=== PATIENT | female | born 1935 | race Caucasian/White ===

== ENCOUNTER → 2016-07-02 | Outpatient (CLI) | payer BC ==
[~2016-07-02] MED LIST: AMLO-110 PO; ASPEC81 PO; CALC-279; CALC-393 PO; DOCU-94 PO; LEVO50TA PO; LEVO50TA6 PO; MOME6000 NAE; MULT-188 PO; MULT-513 PO; MULTTAB58 PO; NAPR220T40 PO; NMN10 PO; PANT40TA PO; POLY335019 PO; SERT50TA PO; SIMV-151 PO
== END | disposition home or self-care (01) ==
LOC: C.LAB 08:16
PROVIDERS: ATTEND Family Medicine
DX: R41.3 Other amnesia (principal); R79.9 Abnormal finding of blood chemistry, unspecified

== ENCOUNTER → 2016-07-09 | Outpatient (CLI) | payer BC ==
[~2016-07-09] MED LIST changes: +GADAVIST IV PRN
--- NOTE | 2016-07-09 12:13 | DIAGNOSTIC IMAGING REPORT ---
MRI OF THE BRAIN COMBO CLINICAL HISTORY: Dizziness. COMPARISON STUDY: CT an MRI of the brain dated 02/05/2016. TECHNIQUE: MRI of the brain was performed utilizing various T1 and T2-weighted sequences in the axial, sagittal, and coronal planes. Contrast-enhanced sequences were acquired following the administration of 6.5 cc of Gadavist. FINDINGS: Brain parenchyma: There are age-related involutional changes noting mild subcortical and periventricular microangiopathic disease. There is no hemorrhage or mass effect. There is no restricted diffusion to suggest acute ischemia. No enhancing mass lesion is identified on the postcontrast images. [place]-white matter differentiation is preserved. No extra-axial fluid collection is seen. The cerebellar tonsils are normal in configuration. The focus of signal abnormality questioned in the left caudate head on the 02/05/2016 examination is no longer identified. Ventricles, sulci, and cisterns: Prominent secondary to involutional change. Pituitary and sella: Unremarkable. Intracranial vasculature: Normal flow voids are maintained at the skull base. Orbits: The bony orbits are grossly intact. Orbital contents are normal in appearance noting bilateral ocular lens implants. Sinuses and mastoids: There are small mastoid effusions. The paranasal sinuses are clear. Calvarium: Unremarkable. Cervical cord: Partially visualized cervical spinal cord is normal in morphology and signal intensity. IMPRESSION: 1. Mild age-related changes as above with no acute intracranial abnormality. 2. Bilateral mastoid effusions. Electronically signed by: Macario Daly M.D. 07/09/2016 12:11 PM Dictated Date/Time: 07/09/2016 12:06 PM
== END | disposition home or self-care (01) ==
LOC: C.MRIBC 11:02
PROVIDERS: ATTEND Psychiatry & Neurology Neurology
DX: R93.8 Abnormal findings on diagnostic imaging of other specified body structures (principal)

== ENCOUNTER 2016-07-19 08:42 | Emergency (ER) | payer BC ==
[~2016-07-19] VITALS: Ht 160 cm; Wt 45.3 kg
[~2016-07-19 08:42] MED LIST changes: -AMLO-110 PO; -ASPEC81 PO; -CALC-279; -DOCU-94 PO; -GADAVIST IV PRN; -LEVO50TA PO; -MOME6000 NAE; -MULT-513 PO; -NAPR220T40 PO; -NMN10 PO; -PANT40TA PO; -POLY335019 PO; -SERT50TA PO
[2016-07-19] MEDS ORDERED: LEVO50TA PO (08:53)
[2016-07-19 08:55] VITALS: TEMP 36.6; Ht 160 cm; Wt 45.3 kg
--- NOTE | 2016-07-19 09:04 | EMERGENCY ROOM VISIT NOTE ---
History First contact with patient: 08:52 Chief Complaint: VOMITING Stated Complaint: NAUSEA/VOMITING/WEAKNESS Nursing Triage Summary: woke up this morning with nausea and vomiting. denies abdominal pain. vomit is yellow greenish in color. symptoms have been for the past 45 mins History of Present Illness The patient is a 80 year old female who presents to the Emergency Room with complaints of "feeling unwell." She was in the hospital yesterday evening when her was in the ED for atrial fibrillation. She was washing the dishes this morning then felt odd, so walked down the hallway and felt her legs give out under her. She reports she sat down and did not fall. When her came , he reported that after the patient was washing dishes she reported her "head felt hot" and she wanted to get to bed, then did not respond to her for 5-10 minutes. She reports she has a history of a potential brain bleed from a TIA in January 2016. She has been following up with Neurology and had an MRI in early July , which showed the area of bleed from the prior January had resolved. Review of Systems See HPI for pertinent positives & negatives. A total of 10 systems reviewed and were otherwise negative. Past Medical/Surgical History Surgical Problems: (1) History of appendectomy (2) History of cholecystectomy (3) History of hysterectomy Family History No pertinent FHx. Social History Smoking Status: Never Smoker Current/Historical Medications Scheduled Calcium Carbonate (Calcium), 600 MG PO BID Levothyroxine Sodium (Synthroid), 1 TAB PO DAILY Multiple Vitamin (Multivitamin), 1 TAB PO DAILY Multiple Vitamins W/ Minerals (Ocuvite), 2 TAB PO DAILY Pantoprazole (Protonix), 40 MG PO DAILY Simvastatin (Simvastatin), 20 MG PO DINNER Scheduled PRN Naproxen Sodium (Aleve), 220 MG PO BID PRN for Pain Allergies Coded Allergies: Bacitracin (Verified Allergy, Unknown, RASH, 07/19/16) Hydroxyzine (Verified Allergy, Unknown, THROW UP, 07/19/16) Neomycin (Verified Allergy, Unknown, RASH, 07/19/16) Polymyxin B (Verified Allergy, Unknown, RASH, 07/19/16) Physical Exam Vital Signs Date Time Temp Pulse Resp B/P Pulse Ox O2 Delivery O2 Flow Rate FiO2 07/19/16 10:12 97 Room Air 07/19/16 10:04 61 18 114/47 96 Room Air 07/19/16 09:19 58 124/53 98 Room Air 62 126/59 70 82/50 07/19/16 08:55 36.6 63 18 145/65 95 Room Air Physical Exam GENERAL: Awake, alert, well-appearing, in no acute distress HENT: Normocephalic, atraumatic. Oropharynx unremarkable. EYES: Normal conjunctiva. Sclera non-icteric. NECK: Supple. No nuchal rigidity. FROM. No JVD. RESPIRATORY: Clear to auscultation. CARDIAC: Regular rate, normal rhythm. Extremities warm and well perfused. Pulses equal. ABDOMEN: Soft, non-distended. No tenderness to palpation. No rebound or guarding. No masses. RECTAL: Deferred. MUSCULOSKELETAL: Chest examination reveals no tenderness. The back is symmetrical on inspection without obvious abnormality. There is no CVA tenderness to palpation. No joint edema. LOWER EXTREMITIES: Calves are equal size bilaterally and non-tender. No edema. No discoloration. NEURO: Normal sensorium. No sensory or motor deficits noted. SKIN: No rash or jaundice noted. Medical Decision & Procedures Laboratory Results 07/19/16 09:25 Red Blood Count 4.11, Mean Corpuscular Volume 90.5, Mean Corpuscular Hemoglobin 30.4, Mean Corpuscular Hemoglobin Concent 33.6, Mean Platelet Volume 10.0, Neutrophils (%) (Auto) 59.8, Lymphocytes (%) (Auto) 29.3, Monocytes (%) (Auto) 6.0, Eosinophils (%) (Auto) 4.2, Basophils (%) (Auto) 0.5, Neutrophils # (Auto) 4.84, Lymphocytes # (Auto) 2.38, Monocytes # (Auto) 0.49, Eosinophils # (Auto) 0.34, Basophils # (Auto) 0.04 07/19/16 09:25 Test 07/19/16 09:25 07/19/16 09:35 07/19/16 10:10 White Blood Count 8.11 K/uL (4.8-10.8) Red Blood Count 4.11 M/uL (4.2-5.4) Hemoglobin 12.5 g/dL (12.0-16.0) Hematocrit 37.2 % (37-47) Mean Corpuscular Volume 90.5 fL (80-100) Mean Corpuscular Hemoglobin 30.4 pg (25-34) Mean Corpuscular Hemoglobin Concent 33.6 g/dl (32-36) Platelet Count 189 K/uL (130-400) Mean Platelet Volume 10.0 fL (7.4-10.4) Neutrophils (%) (Auto) 59.8 % Lymphocytes (%) (Auto) 29.3 % Monocytes (%) (Auto) 6.0 % Eosinophils (%) (Auto) 4.2 % Basophils (%) (Auto) 0.5 % Neutrophils # (Auto) 4.84 K/uL (1.4-6.5) Lymphocytes # (Auto) 2.38 K/uL (1.2-3.4) Monocytes # (Auto) 0.49 K/uL (0.11-0.59) Eosinophils # (Auto) 0.34 K/uL (0-0.5) Basophils # (Auto) 0.04 K/uL (0-0.2) RDW Standard Deviation 44.8 fL (36.4-46.3) RDW Coefficient of Variation 13.5 % (11.5-14.5) Immature Granulocyte % (Auto) 0.2 % Immature Granulocyte # (Auto) 0.02 K/uL (0.00-0.02) Anion Gap 13.0 mmol/L (3-11) Est Creatinine Clear Calc Drug Dose 44.7 ml/min Estimated GFR () 90.8 Estimated GFR (Non- 78.3 BUN/Creatinine Ratio 16.4 (10-20) Calcium Level 8.9 mg/dl (8.5-10.1) Total Bilirubin 0.9 mg/dl (0.2-1) Aspartate Amino Transf (AST/SGOT) 18 U/L (15-37) Alanine Aminotransferase (ALT/SGPT) 18 U/L (12-78) Alkaline Phosphatase 77 U/L (45-117) Total Protein 6.8 gm/dl (6.4-8.2) Albumin 3.6 gm/dl (3.4-5.0) Globulin 3.2 gm/dl (2.5-4.0) Albumin/Globulin Ratio 1.1 (0.9-2) Bedside Troponin I 0.000 ng/ml (0-0.045) Influenza Type A Antigen Neg for Influ A (NEG) Influenza Type B Antigen Neg for Influ B (NEG) Medications Administered Medications (Trade) Dose Ordered Sig/Hue Route Start Time Stop Time Status Last Admin Dose Admin Ondansetron HCl 4 mg 4 mg NOW STAT IV 07/19/16 09:34 07/19/16 09:36 DC 07/19/16 09:39 4 MG Sodium Chloride (Nss 250ml) 250 ml @ 0 mls/hr Q0M IV 07/19/16 09:45 08/18/16 09:44 07/19/16 09:39 0 MLS/HR ED Course 855: I evaluated the patient in room A12B. Her came in as well. 903: I discussed the case with Dr Ureña. I ordered a CBC, CMP, CXR, and influenza antigen. I then ordered a CT head. 930: I was informed the pt is nauseated and dehydrated. I provided her with a 250mL fluid bolus and 4mg IV zofran. She was also orthostatic at that time. 1020: I checked on the patient again, she reported feeling less unwell. She reports she is not on any blood pressure medications. 1130: The patient reported feeling well. She was ambulating to the bathroom. I gave her water and crackers to try to keep down, which she tolerated well. 12:20: The patient was discharged home in good condition. Medical Decision 80 yo F with vague symptoms including dizziness earlier this morning, with orthostatic blood pressure. It seems she was likely dehydrated from being in the hospital yesterday with her . She had labs and a CT head which were all unremarkable. She initially had orthostatic blood pressures which resolved after receiving fluids. She reported vomiting in the ambulance on the way over, but then did not have any further vomiting and tolerated PO water and crackers. She discharged home and instructed to follow up with her PCP within the next week. She agreed with the plan. Impression Primary Impression: Dehydration Additional Impression: Dizzy Departure Information Dispostion Home / Self-Care Condition GOOD Referrals Thuan Antonio D.O.Int.Med. (PCP) Patient Instructions My [facility] Resident Tracking Resident Involvement: Resident Care Provided Care Provided: Adult ED Problem Qualifiers
--- NOTE | 2016-07-19 09:26 | DIAGNOSTIC IMAGING REPORT ---
CHEST ONE VIEW PORTABLE CLINICAL HISTORY: Collapse at home. COMPARISON STUDY: Chest radiograph October 04, 2006. FINDINGS: Lung volumes are normal. Mild opacity along the left heart border likely reflects atelectasis. Lungs are otherwise clear. Cardiac size is normal. Mediastinal contours are normal. The patient is mildly rotated. There is no evidence of pulmonary edema. IMPRESSION: 1. No acute findings. 2. Mild opacity along the left heart border which likely reflects atelectasis. Electronically signed by: Etienne Chacon M.D. 07/19/2016 9:25 AM Dictated Date/Time: 07/19/2016 9:23 AM
[2016-07-19] MEDS ORDERED: ONDANSETRON INJ 2 MG/ML 2 ML VIAL IV STA (09:34)
[2016-07-19] MEDS ORDERED: SODIUM CHLORIDE 0.9% 250ML 250 ML IV SCH ×2 (09:45→10:30)
[2016-07-19 09:59] LABS: BASO % 0.5 %; BASO ABS # 0.04 K/uL (0-0.2); COMPLETE YES; EOS % 4.2 %; HEMATOCRIT 37.2 % (37-47); IG% 0.2 %; LYMPH % 29.3 %; LYMPH ABS # 2.38 K/uL (1.2-3.4); MEAN CELL VOLUME 90.5 fL (80-100); MEAN CORPUSCULAR HEMOGLOBIN 30.4 pg (25-34); MEAN CORPUSCULAR HGB CONC 33.6 g/dl (32-36); NEUT % 59.8 %; PLATELET COUNT 189 K/uL (130-400); RED BLOOD COUNT 4.11 M/uL (4.2-5.4); WHITE BLOOD COUNT 8.11 K/uL (4.8-10.8)
--- NOTE | 2016-07-19 10:01 | DIAGNOSTIC IMAGING REPORT ---
CT OF THE HEAD WITHOUT CONTRAST CLINICAL HISTORY: Collapse. COMPARISON STUDY: Head CT February 05, 2016 and MRI of the brain July 09, 2016. CT DOSE: 878.49 mGy.cm TECHNIQUE: Helical axial images of the head were obtained without IV contrast. Automated exposure control was utilized for the study. FINDINGS: No acute intracranial hemorrhage, midline shift or mass effect is present. Ventricular system is stable. Basilar cisterns are patent. There are no extra-axial collections. There are no findings to suggest acute dural sinus thrombosis or acute territorial infarct. Mild periventricular white matter hypodensity suggests small vessel disease. There is no calvarial fracture. There is trace fluid within the right mastoid air cells. This is diminished since MRI July 09, 2016. IMPRESSION: No acute intracranial findings. Electronically signed by: Etienne Chacon M.D. 07/19/2016 10:00 AM Dictated Date/Time: 07/19/2016 9:55 AM
[2016-07-19 10:12] VITALS: O2SAT 97
[2016-07-19 10:16] LABS: BUN/CREATININE RATIO 16.4 (10-20); CALCIUM 8.9 mg/dl (8.5-10.1); CREATININE 0.73 mg/dl (0.60-1.20); POTASSIUM 3.5 mmol/L (3.5-5.1)
[2016-07-19 10:18] LABS: ALB/GLOB RATIO 1.1 (0.9-2)
[2016-07-19 12:43] VITALS: BP 117/57; PULSE 70; O2SAT 96
--- NOTE | 2016-07-20 19:50 | EMERGENCY ROOM VISIT NOTE ---
ED Visit Note First contact with patient: 08:52 Resident Physician Supervision Note: I interviewed and examined the patient. Discussed with Dr. Hernandez and agree with findings and plan as documented in the note. Any exceptions or clarifications are listed here: This patient was evaluated and appeared to be in no significant distress. Patient was hydrated with normal saline solution, given IV Zofran for nausea. Patient's workup is fairly unrevealing. She was feeling much improved after the fluids and Zofran. She was able to tolerate by mouth crackers without difficulty. She was discharged with care of her family will return to the ER for worsening of symptoms or any medical concerns. Diagnosis: Vomiting, vertigo Documented By: Guillermina Ureña
[2016-12-31] MEDS ORDERED: NAPR220T40 PO (08:26)
[2016-12-31] MEDS ORDERED: PANT40TA PO (08:26)
[2016-12-31] MEDS ORDERED: MULT-188 PO (13:05)
[2017-01-01] MEDS ORDERED: ASPEC81 PO (13:39)
== END 2016-07-19 12:45 | disposition home or self-care (01) ==
LOC: EDBD 08:42 → C.EDA 08:44
DX: E86.0 Dehydration (principal); R42 Dizziness and giddiness; Z90.710 Acquired absence of both cervix and uterus

== ENCOUNTER → 2016-07-23 | Outpatient (CLI) | payer BC ==
[~2016-07-23] MED LIST changes: +AMLO-110 PO; +ASPEC81 PO; +CALC-279; +DOCU-94 PO; +LEVO50TA PO; -LEVO50TA6 PO; +MOME6000 NAE; +MULT-513 PO; +NAPR220T40 PO; +NMN10 PO; +PANT40TA PO; +POLY335019 PO; +SERT50TA PO
--- NOTE | 2016-07-23 11:34 | DIAGNOSTIC IMAGING REPORT ---
ULTRASOUND OF THE CAROTID ARTERIES CLINICAL HISTORY: Syncope. COMPARISON STUDY: No priors. TECHNIQUE: Real-time, grayscale, and color Doppler sonography of the carotid arteries is performed. Images are reviewed in the transverse and longitudinal planes. FINDINGS: Blood pressure in the right arm measures 132/52 and blood pressure in the left arm measures 120/62. The carotid arteries are patent bilaterally and demonstrate antegrade flow. There is moderate echogenic shadowing atherosclerotic plaque seen the carotid bulbs bilaterally. Normal doppler arterial waveforms are seen throughout. Velocity measurements are listed below. Common carotid peak systolic velocity (cm/sec): RIGHT: 61 LEFT: 78 ICA proximal peak systolic velocity (cm/sec): RIGHT: 74 LEFT: 54 ICA mid peak systolic velocity (cm/sec): RIGHT: 89 LEFT: 93 ICA distal peak systolic velocity (cm/sec): RIGHT: 81 LEFT: 89 ICA/CC peak systolic ratio: RIGHT: 1.5 LEFT: 1.2 Antegrade flow was shown in the vertebral arteries. The external carotid arteries are patent. IMPRESSION: 1. Atherosclerotic plaque with no sonographic evidence of hemodynamically significant stenosis in the right or left carotid arterial system. 2. Antegrade flow is shown in the vertebral arteries. Electronically signed by: Macario Daly M.D. 07/23/2016 11:33 AM Dictated Date/Time: 07/23/2016 11:31 AM
== END | disposition home or self-care (01) ==
LOC: C.ULTRBC 10:03
PROVIDERS: ATTEND Family Medicine
DX: R55 Syncope and collapse (principal)

== ENCOUNTER → 2016-07-30 | Outpatient (CLI) | payer BC ==
[~2016-07-30] MED LIST changes: +OPTIRAY 320 IV PRN
--- NOTE | 2016-07-30 10:36 | DIAGNOSTIC IMAGING REPORT ---
ABDOMEN AND PELVIS CT WITH IV AND ORAL CONTRAST CT DOSE: 400.65 mGy.cm HISTORY: WEIGHT LOSS, UNINTENTIONAL TECHNIQUE: Multiaxial CT images of the abdomen and pelvis were performed following the use of intravenous and oral contrast. COMPARISON STUDY: None. FINDINGS: The lung bases are clear. The liver, spleen, pancreas, kidneys, and adrenal glands are within normal limits. No bowel wall thickening or obstruction. No suspicious lytic or blastic osseous lesions. Cholecystectomy. Hysterectomy. Appendectomy. Bladder is now well evaluated due to underdistention. Colonic diverticulosis. No lymphadenopathy. Left retroaortic renal vein. IMPRESSION: No significant abnormality identified within the abdomen or pelvis. Colonic diverticulosis. Postoperative changes. Electronically signed by: Demario Bourne M.D. 07/30/2016 10:35 AM Dictated Date/Time: 07/30/2016 10:27 AM
== END | disposition home or self-care (01) ==
LOC: C.CTS 10:05
PROVIDERS: ATTEND Internal Medicine
DX: R63.4 Abnormal weight loss (principal); K57.30 Diverticulosis of large intestine without perforation or abscess without bleeding

== ENCOUNTER → 2016-08-27 | Outpatient (CLI) | payer BC ==
[~2016-08-27] MED LIST changes: -OPTIRAY 320 IV PRN
[2016-08-27 09:41] LABS: BASO % 0.8 %; BASO ABS # 0.05 K/uL (0-0.2); COMPLETE YES; EOS % 6.6 %; HEMATOCRIT 37.2 % (37-47); LYMPH % 34.6 %; LYMPH ABS # 2.14 K/uL (1.2-3.4); MEAN CELL VOLUME 94.2 fL (80-100); MEAN CORPUSCULAR HEMOGLOBIN 30.9 pg (25-34); MEAN CORPUSCULAR HGB CONC 32.8 g/dl (32-36); MEAN PLATELET VOLUME 10.1 fL (7.4-10.4); MONO % 7.1 %; NEUT % 50.9 %; PLATELET COUNT 289 K/uL (130-400); RED BLOOD COUNT 3.95 M/uL (4.2-5.4); WHITE BLOOD COUNT 6.19 K/uL (4.8-10.8)
[2016-08-27 10:00] LABS: ALT/SGPT 19 U/L (12-78); BLOOD UREA NITROGEN 13 mg/dl (7-18); BUN/CREATININE RATIO 17.4 (10-20); CALCIUM 8.7 mg/dl (8.5-10.1); CARBON DIOXIDE 30 mmol/L (21-32); CHLORIDE 111 mmol/L (98-107); CREATININE 0.72 mg/dl (0.60-1.20); GLUCOSE 97 mg/dl (70-99); SODIUM 145 mmol/L (136-145)
[2016-08-27 10:03] LABS: ALB/GLOB RATIO 0.9 (0.9-2); ALKALINE PHOSPHATASE 81 U/L (45-117); AST/SGOT 17 U/L (15-37)
== END | disposition home or self-care (01) ==
LOC: C.LAB 08:22
PROVIDERS: ATTEND Family Medicine
DX: R63.4 Abnormal weight loss (principal); I10 Essential (primary) hypertension

== ENCOUNTER 2016-12-31 18:43 | Observation (INO) | payer BC ==
[~2016-12-31] VITALS: Ht 157.5 cm; Wt 66.3 kg
[~2016-12-31 18:43] MED LIST changes: -AMLO-110 PO; -ASPEC81 PO; -CALC-279; -DOCU-94 PO; -MOME6000 NAE; -MULT-513 PO; -NMN10 PO; -POLY335019 PO; -SERT50TA PO
[2016-12-31 19:17] LABS: BASO % 0.5 %; BASO ABS # 0.04 K/uL (0-0.2); COMPLETE YES; EOS % 6.9 %; HEMATOCRIT 36.3 % (37-47); IG% 0.1 %; LYMPH % 42.6 %; LYMPH ABS # 3.34 K/uL (1.2-3.4); MEAN CELL VOLUME 93.8 fL (80-100); MEAN CORPUSCULAR HGB CONC 33.1 g/dl (32-36); MEAN PLATELET VOLUME 9.4 fL (7.4-10.4); MONO % 8.7 %; NEUT % 41.2 %; PLATELET COUNT 206 K/uL (130-400); RED BLOOD COUNT 3.87 M/uL (4.2-5.4); WHITE BLOOD COUNT 7.84 K/uL (4.8-10.8)
[2016-12-31] MEDS ORDERED: ASPIRIN 81 MG CHEW PO STA (19:18)
[2016-12-31 19:25] LABS: PROTHROMBIN TIME (PATIENT) 10.9 SECONDS (9.0-12.0)
[2016-12-31 19:26] LABS: BUN/CREATININE RATIO 22.9 (10-20); CALCIUM 8.8 mg/dl (8.5-10.1); CREATININE 0.74 mg/dl (0.60-1.20); POTASSIUM 3.4 mmol/L (3.5-5.1)
[2016-12-31 19:32] LABS: CKMB/CK RATIO 0.9 (0-3.0)
--- NOTE | 2016-12-31 19:33 | DIAGNOSTIC IMAGING REPORT ---
CHEST ONE VIEW PORTABLE CLINICAL HISTORY: CHEST PAIN pain COMPARISON STUDY: 07/19/2016 FINDINGS: The bones soft tissues and hemidiaphragms are normal. The cardiomediastinal silhouette is normal. The lungs are clear. The pulmonary vasculature is normal. IMPRESSION: Negative chest. The above report was generated using voice recognition software. It may contain grammatical, syntax or spelling errors. Electronically signed by: Kishor Hdez M.D. 12/31/2016 7:32 PM Dictated Date/Time: 12/31/2016 7:31 PM
[2016-12-31] MEDS ORDERED: POLY335019 PO (20:15)
[2016-12-31] MEDS ORDERED: AMLO-110 PO (20:15)
[2016-12-31] MEDS ORDERED: SERT50TA PO (20:15)
[2016-12-31] MEDS ORDERED: NMN10 PO (20:15)
[2016-12-31] MEDS ORDERED: MOME6000 NAE (20:15)
[2016-12-31] MEDS ORDERED: LEVO50TA PO (20:15)
[2016-12-31] MEDS ORDERED: DOCU-94 PO (20:15)
[2016-12-31] MEDS ORDERED: MULT-513 PO (20:15)
[2016-12-31] MEDS ORDERED: CALC-279 (20:15)
[2016-12-31] MEDS ORDERED: NITROGLYCERIN 0.4 MG SL PER TAB CHARGE SL PRN (21:00)
[2016-12-31] MEDS ORDERED: POLYETHYLENE (MIRALAX) 17 GM PACK PO PRN (21:00)
[2016-12-31] MEDS ORDERED: ACETAMINOPHEN 325 MG TAB PO PRN (21:00)
[2016-12-31] MEDS ORDERED: ONDANSETRON INJ 2 MG/ML 2 ML VIAL IV PRN (21:15)
[2016-12-31] MEDS ORDERED: POTASSIUM CHLORIDE 20 MEQ TABCR PO ONE (21:45)
[2016-12-31] MEDS ORDERED: IV FLUIDS COMPLETED PRN (22:00)
--- NOTE | 2016-12-31 22:03 | History and Physical ---
History & Physical Date & Time of Service: Dec 31, 2016 at 21:54 Chief Complaint: Pain In Chest, Neck, Left Arm Primary Care Physician: Nathalia Gillis P.A. History of Present Illness Source: patient Patient is an 81-year-old female who presents to the emergency department with complaint of the onset of dizziness, palpitations and left arm discomfort when arising from her chair shortly after supper tonight. She reports that she's had episodes of dizziness intermittently in the past, with the most recent episode being in June, but the palpitations and modified and discomfort are both new symptoms. She's had no change in the usual dietary habits are both solids and liquids, she reports that she drinks a good amount of liquids, she has minimal salt intake, and her physical activity level has been unchanged over the past weeks. Past Medical/Surgical History Hypertension Constipation Hypothyroidism Dementia Allergic rhinitis GERD Depression Hyperlipidemia Family History Noncontributory Social History Smoking Status: Never Smoker Smokeless Tobacco Use: No Alcohol Use: none Drug Use: none Marital Status: Housing status: lives with family Occupational Status: retired Immunizations History of Influenza Vaccine: Yes History of Tetanus Vaccine?: Yes History of Pneumococcal: Yes History of Hepatitis B Vaccine: Unknown Multi-Drug Resistant Organisms History of MDRO: No Allergies Coded Allergies: Bacitracin (Verified Allergy, Unknown, RASH, 07/19/16) Donepezil (Verified Allergy, Unknown, UNKNOWN, 12/31/16) Hydroxyzine (Verified Allergy, Unknown, THROW UP, 07/19/16) Neomycin (Verified Allergy, Unknown, RASH, 07/19/16) Polymyxin B (Verified Allergy, Unknown, RASH, 07/19/16) Home Medications Scheduled Amlodipine (Norvasc), 5 MG PO DAILY Calcium Citrate-Vitamin D (Calcium Citrate + D), 1 TAB BID Docusate Sodium (Colace), 1 CAP PO DAILY Levothyroxine Sodium (Synthroid), 50 MCG PO DAILY Memantine (Namenda), 10 MG PO BID Mometasone Furoate (Nasal) (Mometasone Furoate), 1-2 SPRAYS PHONG DAILY Multiple Vitamins W/ Minerals (Ocuvite), 2 TAB PO DAILY Multivitamins/Minerals (Mvi With Minerals), 1 TAB PO DAILY Pantoprazole (Protonix), 40 MG PO DAILY Sertraline (Zoloft), 25 MG PO DAILY Simvastatin (Simvastatin), 20 MG PO DINNER Scheduled PRN Naproxen Sodium (Aleve), 220 MG PO BID PRN for Pain Polyethylene Glycol 3350 (Miralax), 8.5 GM PO DAILY PRN for Constipation Review of Systems The patient denies shortness of breath, cough, lower extremity swelling, vision change, hearing change, sore throat, fevers, chills, sweats, weight change, fatigue, nausea, vomiting, abdominal pain, pelvic pain, blood in urine or stool , dysuria, urinary frequency or urgency, headache, memory loss, rash, abnormal bruising or bleeding, imbalance, focal or generalized weakness, numbness or tingling in arms or legs, arthralgias or myalgias, back or neck pain, night sweats. The review of systems is otherwise negative other than for that already noted above, and at least 10 systems have been reviewed. Physical Exam Vital Signs Date Time Temp Pulse Resp B/P (MAP) Pulse Ox O2 Delivery O2 Flow Rate FiO2 12/31/16 21:37 74 18 134/63 94 Room Air 12/31/16 20:35 79 18 155/65 95 Room Air 12/31/16 19:35 95 Room Air 12/31/16 18:58 70 12/31/16 18:56 96 Room Air 12/31/16 18:46 36.6 75 16 167/73 95 Room Air The patient is awake, well-developed and adequately nourished, alert and oriented 3, normocephalic and atraumatic, lying in bed and in no acute distress. HEENT--PERRL, EOMI, mucous membranes and oropharynx dry. Neck--supple, no JVD or bruits, thyroid normal, trachea midline, no adenopathy. Heart--normal S1 and S2, no extra beats, no murmurs, rubs or gallops. Lungs--clear bilaterally with good air movement, no respiratory distress, no accessory muscle use. Abdomen--normal bowel sounds and soft, nontender and nondistended, no hernias or masses, no organomegaly. Extremities--no cyanosis, clubbing or edema. There are good distal pulses b/l. Dermatologic--normal skin turgor, normal color, warm and dry, no abnormal lymph nodes, no rash. Neurologic--cranial nerves II through XII grossly intact, motor and sensory examination normal. Rheumatologic--normal range of motion, nontender, muscles and joints. Psychiatric--normal affect. Diagnostics Laboratory Results Results Past 24 Hours Test 12/31/16 19:06 Range/Units White Blood Count 7.84 4.8-10.8 K/uL Red Blood Count 3.87 4.2-5.4 M/uL Hemoglobin 12.0 12.0-16.0 g/dL Hematocrit 36.3 37-47 % Mean Corpuscular Volume 93.8 80-100 fL Mean Corpuscular Hemoglobin 31.0 25-34 pg Mean Corpuscular Hemoglobin Concent 33.1 32-36 g/dl Platelet Count 206 130-400 K/uL Mean Platelet Volume 9.4 7.4-10.4 fL Neutrophils (%) (Auto) 41.2 % Lymphocytes (%) (Auto) 42.6 % Monocytes (%) (Auto) 8.7 % Eosinophils (%) (Auto) 6.9 % Basophils (%) (Auto) 0.5 % Neutrophils # (Auto) 3.23 1.4-6.5 K/uL Lymphocytes # (Auto) 3.34 1.2-3.4 K/uL Monocytes # (Auto) 0.68 0.11-0.59 K/uL Eosinophils # (Auto) 0.54 0-0.5 K/uL Basophils # (Auto) 0.04 0-0.2 K/uL RDW Standard Deviation 46.5 36.4-46.3 fL RDW Coefficient of Variation 13.5 11.5-14.5 % Immature Granulocyte % (Auto) 0.1 % Immature Granulocyte # (Auto) 0.01 0.00-0.02 K/uL Prothrombin Time 10.9 9.0-12.0 SECONDS Prothromb Time International Ratio 1.0 0.9-1.1 Activated Partial Thromboplast Time 26.4 21.0-31.0 SECONDS Partial Thromboplastin Ratio 1.0 Sodium Level 146 136-145 mmol/L Potassium Level 3.4 3.5-5.1 mmol/L Chloride Level 112 98-107 mmol/L Carbon Dioxide Level 28 21-32 mmol/L Anion Gap 6.0 3-11 mmol/L Blood Urea Nitrogen 17 7-18 mg/dl Creatinine 0.74 0.60-1.20 mg/dl Est Creatinine Clear Calc Drug Dose 54.7 ml/min Estimated GFR () 88.7 Estimated GFR (Non- 76.5 BUN/Creatinine Ratio 22.9 10-20 Random Glucose 106 70-99 mg/dl Calcium Level 8.8 8.5-10.1 mg/dl Total Bilirubin 0.7 0.2-1 mg/dl Direct Bilirubin 0.2 0-0.2 mg/dl Aspartate Amino Transf (AST/SGOT) 16 15-37 U/L Alanine Aminotransferase (ALT/SGPT) 20 12-78 U/L Alkaline Phosphatase 90 45-117 U/L Total Creatine Kinase 67 26-192 U/L Creatine Kinase MB 0.6 0.5-3.6 ng/ml Creatine Kinase MB Ratio 0.9 0-3.0 Troponin I 0.022 0-0.045 ng/ml Total Protein 7.0 6.4-8.2 gm/dl Albumin 3.8 3.4-5.0 gm/dl Lipase 498 73-393 U/L Diagnostic Radiology Patient Name: EDWAR MONTES Unit Number: [id number] Dictated: 12/31/161930 Transcribed: 12/31/161930 MS Printed Date/Time: [~ rep prt dt]/[~ rep prt tm] [~ rep ct labl] - [~ rep ct ivnm] [facility] [place] [address] Dictated: 12/31/161930 Transcribed: 12/31/161930 MS Printed Date/Time: [~ rep prt dt]/[~ rep prt tm] [~ rep ct labl] - [~ rep ct ivnm] [~ rep ct add3]] CHEST ONE VIEW PORTABLE CLINICAL HISTORY: CHEST PAIN pain COMPARISON STUDY: 07/19/2016 FINDINGS: The bones soft tissues and hemidiaphragms are normal. The cardiomediastinal silhouette is normal. The lungs are clear. The pulmonary vasculature is normal. IMPRESSION: Negative chest. The above report was generated using voice recognition software. It may contain grammatical, syntax or spelling errors. Electronically signed by: Kishor Hdez M.D. 12/31/2016 7:32 PM Dictated Date/Time: 12/31/2016 7:31 PM The status of this report is Signed. Draft = Not yet reviewed or approved by Radiologist. Signed = Reviewed and approved by Radiologist. <AttendingPhy></AttendingPhy> <FamilyPhy>Nathalia Gillis P.A.</FamilyPhy> < PrimaryPhy>Nathalia Gillis P.A.</PrimaryPhy> <UnitNumber>[id number]</UnitNumber > <VisitNumber>[id number]</VisitNumber> <PatientName>EDWAR MONTES Mamadou</ PatientName> <DateOfBirth>1935</DateOfBirth> <Location>[facility]</Location> < ServiceDate>12/31/16</ServiceDate> <MNE>ESINDI</MNE> <OrderingPhy>Waldemar Joyce D.O.</OrderingPhy> <OrderingPhyMNE>f rep ord dr keith</OrderingPhyMNE> <DictatingPhyMNE>f rep dict dr keith</DictatingPhyMNE> <CCListMNE>f rep ct mne</ CCListMNE> <AdmittingPhyMNE>f pt admit dr keith</AdmittingPhyMNE> <AttendingPhyMNE >f pt attend dr keith</AttendingPhyMNE> <ConsultingPhyMNE>f pt consult dr keith</ConsultingPhyMNE> <FamilyPhyMNE>f pt fam dr keith</FamilyPhyMNE> <OtherPhyMNE>f pt other dr keith</OtherPhyMNE> < PrimaryPhyMNE>f pt prim care dr keith</PrimaryPhyMNE> <ReferringPhyMNE>f pt referring dr keith</ReferringPhyMNE> EKG EKG shows normal sinus rhythm at 71 beats minute, incomplete right bundle branch block, no acute ST-T changes. Impression Assessment and Plan Precordial chest pain/palpitations/left arm discomfort/hypertension--The patient will be admitted to telemetry for serial cardiac enzymes, cardiac rhythm monitoring and a 2-D echocardiogram with Dopplers. If the above workup is negative, the patient should be considered for stress echocardiogram prior to discharge. We'll continue amlodipine 5 mg by mouth daily and add aspirin 81 mg by mouth every morning. Hypothyroidism--continue levothyroxine sodium 50 g by mouth daily. GERD--continue pantoprazole 40 mg by mouth daily. Hyperlipidemia--continue simvastatin 20 mg by mouth daily. Check a fasting lipid profile in the a.m. Depression/dementia--continue sertraline 25 mg by mouth daily and Namenda 10 mg by mouth twice a day. Constipation--continue docusate 100 mg by mouth daily and MiraLAX 17 g by mouth daily when necessary. Allergic rhinitis--continue nasal spray a change to Flonase 1 spray to nostril daily. Level of Care Telemetry Advanced Directives Existing Advance Directive: No Existing Living Will: No Existing Power of Director Of Student Life: No Resuscitation Status FULL RESUSCITATION VTE Prophylaxis VTE Risk Assessment Done? Y/N: Yes Risk Level: Moderate Given or contraindicated: SCD's Social Service Consult None Apply
[2016-12-31 22:06] VITALS: BP 178/69; PULSE 60; TEMP 37; O2SAT 96; Ht 157.5 cm; Wt 66.3 kg
--- NOTE | 2016-12-31 22:21 | EMERGENCY ROOM VISIT NOTE ---
History Report prepared by Savi: Karen Navas Under the Supervision of: Dr. Waldemar Joyce D.O. First contact with patient: 18:49 Chief Complaint: CARDIAC ASSESSMENT Stated Complaint: PAIN IN CHEST, NECK, LEFT ARM Nursing Triage Summary: pt to the ED with c/o chest pain today that went away, no sob no dizziness no complaints of pain now History of Present Illness The patient is an 81 year old female who presents to the Emergency Room with complaints of an episode of chest pain around 1744 today. She was sitting in a chair when the pain started. It was in the left side of her chest and radiating into her left arm and neck. The episode lasted for about 30 minutes. She is currently not having any pain. The pain was not worsened by anything. She tried taking Tylenol and Pepto Bismol. She had some abdominal pain which felt like indigestion. She denies any nausea, vomiting, pain in the legs, or swelling in the legs. She has not started any new medications recently. She has a history of TIA. She denies any history of [place]. She has not had a stress test or heart catheterization before. She has had a cholecystectomy and appendectomy. Source of History: patient, spouse/significant other Onset: 1744 today Position: chest (left) Quality: other (pain) Timing: other (episodic) Associated Symptoms: + neck pain, + abdominal pain, No nausea, No vomiting Note: Pt reports left arm pain. Pt denies leg pain/swelling. Review of Systems See HPI for pertinent positives & negatives. A total of 10 systems reviewed and were otherwise negative. Past Medical & Surgical Medical Problems: (1) Heart palpitations (2) Precordial chest pain Surgical Problems: (1) History of appendectomy (2) History of cholecystectomy (3) History of hysterectomy Family History No pertinent family history stated. Social History Smoking Status: Never Smoker Marital Status: Occupation Status: retired Current/Historical Medications Scheduled Amlodipine (Norvasc), 5 MG PO DAILY Aspirin (Aspirin EC Low Dose), 1 TAB PO DAILY Calcium Citrate-Vitamin D (Calcium Citrate + D), 1 TAB BID Docusate Sodium (Colace), 1 CAP PO DAILY Levothyroxine Sodium (Synthroid), 50 MCG PO DAILY Memantine (Namenda), 10 MG PO BID Mometasone Furoate (Nasal) (Mometasone Furoate), 1-2 SPRAYS PHONG DAILY Multiple Vitamins W/ Minerals (Ocuvite), 2 TAB PO DAILY Multivitamins/Minerals (Mvi With Minerals), 1 TAB PO DAILY Pantoprazole (Protonix), 40 MG PO DAILY Sertraline (Zoloft), 25 MG PO DAILY Simvastatin (Simvastatin), 20 MG PO DINNER Scheduled PRN Naproxen Sodium (Aleve), 220 MG PO BID PRN for Pain Polyethylene Glycol 3350 (Miralax), 8.5 GM PO DAILY PRN for Constipation Allergies Coded Allergies: Bacitracin (Verified Allergy, Unknown, RASH, 07/19/16) Donepezil (Verified Allergy, Unknown, UNKNOWN, 12/31/16) Hydroxyzine (Verified Allergy, Unknown, THROW UP, 07/19/16) Neomycin (Verified Allergy, Unknown, RASH, 07/19/16) Polymyxin B (Verified Allergy, Unknown, RASH, 07/19/16) Physical Exam Vital Signs Date Time Temp Pulse Resp B/P (MAP) Pulse Ox O2 Delivery O2 Flow Rate FiO2 12/31/16 20:35 79 18 155/65 95 Room Air 12/31/16 19:35 95 Room Air 12/31/16 18:58 70 12/31/16 18:56 96 Room Air 12/31/16 18:46 36.6 75 16 167/73 95 Room Air Physical Exam GENERAL: Patient is awake, alert, and in no acute distress. Patient is resting comfortably and showing no signs of anxiety EYES: The conjunctivae are clear. The pupils are round and reactive. EARS, NOSE, MOUTH AND THROAT: The nose is without any evidence of any deformity. Mucous membranes are moist tongue is midline NECK: The neck is nontender and supple. RESPIRATORY: Normal respiratory effort is noted there is no evidence of wheezing rhonchi or rales CARDIOVASCULAR: Regular rate and rhythm noted there no murmurs rubs or gallops normal S1 normal S2 GASTROINTESTINAL: The abdomen is soft. Bowel sounds are present in all quadrants. Abdomen is nontender MUSCULOSKELETAL/EXTREMITIES: There is no evidence of gross deformity full range of motion is noted in the hips and shoulders SKIN: There is no obvious evidence of any rash. There are no petechiae, pallor or cyanosis noted. NEUROLOGIC: Patient is awake alert and oriented x3 Medical Decision & Procedures ER Provider Diagnostic Interpretation: X-ray results as stated below per interpretation by me and the radiologist. CHEST ONE VIEW PORTABLE CLINICAL HISTORY: CHEST PAIN pain COMPARISON STUDY: 07/19/2016 FINDINGS: The bones soft tissues and hemidiaphragms are normal. The cardiomediastinal silhouette is normal. The lungs are clear. The pulmonary vasculature is normal. IMPRESSION: Negative chest. The above report was generated using voice recognition software. It may contain grammatical, syntax or spelling errors. Electronically signed by: Kishor Hdez M.D. 12/31/2016 7:32 PM Dictated Date/Time: 12/31/2016 7:31 PM Laboratory Results Test 12/31/16 19:06 Prothrombin Time 10.9 SECONDS (9.0-12.0) Prothromb Time International Ratio 1.0 (0.9-1.1) Activated Partial Thromboplast Time 26.4 SECONDS (21.0-31.0) Partial Thromboplastin Ratio 1.0 Total Bilirubin 0.7 mg/dl (0.2-1) Direct Bilirubin 0.2 mg/dl (0-0.2) Aspartate Amino Transf (AST/SGOT) 16 U/L (15-37) Alanine Aminotransferase (ALT/SGPT) 20 U/L (12-78) Alkaline Phosphatase 90 U/L (45-117) Total Protein 7.0 gm/dl (6.4-8.2) Albumin 3.8 gm/dl (3.4-5.0) Lipase 498 U/L (73-393) Laboratory results per my review. Medications Administered Medications (Trade) Dose Ordered Sig/Hue Route Start Time Stop Time Status Last Admin Dose Admin Aspirin (Aspirin Chew) 324 mg NOW STAT PO 12/31/16 19:18 12/31/16 19:19 DC 12/31/16 19:29 324 MG Memantine (Namenda Tab) 10 mg BID PO 12/31/16 21:00 01/30/17 20:59 01/01/17 09:20 10 MG Calcium/Vitamin D (Caltrate Plus Tab) 1 tab BID PO 12/31/16 21:00 01/30/17 20:59 01/01/17 09:19 1 TAB ECG Indication: chest pain Rate (beats per minute): 71 Rhythm: normal sinus Findings: ST depression (Lateral, Inferior), no ectopy Comparison ECG Date: 19-Jul-2016 Change: ST segment abnormalities are new. ED Course 1912: The patient was evaluated in room C2B. A complete history and physical examination were performed. 1917: Aspirin 324 mg PO. 1945: Upon reevaluation, the patient is resting comfortably. I discussed results and treatment plan with her and her . They verbalize agreement and understanding. The patient will be evaluated for further management and care. 1953: I discussed the patient's case with JAKY Ernst hospitalist. The patient will be evaluated for further management. Medical Decision Prior records/ancillary studies reviewed. Triage Nursing notes reviewed. Additional history obtained from family. The patient's history was concerning for chest pain. Differential diagnosis: Etiologies such as cardiac ischemia, aortic dissection, pulmonary embolism, pneumonia, pneumothorax, musculoskeletal, infections, pericarditis, myocarditis , esophageal rupture, gastrointestinal, as well as others were entertained. The patient is an 81-year-old female who presented to the emergency department for an evaluation of chest discomfort. The patient was pain-free upon arrival to the emergency department. She was treated with aspirin. She was found have ST segment abnormalities on EKG which could be consistent with ischemia. I discussed the patient's laboratory and radiographic studies with her. I also discussed the limitations of the emergency department workup for chest pain with them. Because the patient's abnormal EKG I discussed her case with the on- call [facility] hospitalist group. They have agreed to evaluate the patient in the emergency department for further management and disposition. Medication Reconcilliation Current Medication List: was personally reviewed by me Blood Pressure Screening Patient's blood pressure: Elevated blood pressure Blood pressure disposition: Elevated BP felt to be situational Will be monitored while in the hospital. Consults Time Called: 1946 Consulting Physician: JAKY Ernst hospitalist Returned Call: 1953 I discussed the patient's case with him. The patient will be evaluated for further management. Impression Primary Impression: Left sided chest pain Additional Impression: Abnormal EKG Scribe Attestation The scribe's documentation has been prepared under my direction and personally reviewed by me in its entirety. I confirm that the note above accurately reflects all work, treatment, procedures, and medical decision making performed by me. Departure Information Dispostion Being Evaluated By Hospitalist Prescriptions Aspirin (Aspirin EC Low Dose) 81 Mg Ectab 1 TAB PO DAILY for 30 Days, #30 TAB 3 Refills Prov: Hayden Klein D.O. 01/01/17 Referrals Nathalia Gillis P.A. (PCP) Patient Instructions My [facility] Problem Qualifiers
[2016-12-31] MEDS: SODIUM CHLOR 0.45% + 20MEQ KCL 1,000 ML IV SCH (22:33)
[2016-12-31] MEDS: MEMANTINE 10 MG TAB PO SCH (22:34)
[2016-12-31] MEDS: CALCIUM 600MG + VIT D 400 IU TAB PO SCH (22:35)
[2016-12-31 23:53] VITALS: BP 127/70; PULSE 68; TEMP 36.9; O2SAT 96
[2017-01-01 04:12] VITALS: BP 132/76; PULSE 67; TEMP 36.8; O2SAT 96
[2017-01-01 05:25] LABS: BASO % 0.5 %; BASO ABS # 0.04 K/uL (0-0.2); COMPLETE YES; EOS % 8.1 %; HEMATOCRIT 35.7 % (37-47); IG% 0.1 %; LYMPH % 42.6 %; LYMPH ABS # 3.61 K/uL (1.2-3.4); MEAN CELL VOLUME 94.9 fL (80-100); MEAN CORPUSCULAR HEMOGLOBIN 30.6 pg (25-34); MEAN CORPUSCULAR HGB CONC 32.2 g/dl (32-36); MEAN PLATELET VOLUME 9.7 fL (7.4-10.4); MONO % 8.8 %; NEUT % 39.9 %; PLATELET COUNT 210 K/uL (130-400); RED BLOOD COUNT 3.76 M/uL (4.2-5.4); WHITE BLOOD COUNT 8.48 K/uL (4.8-10.8)
[2017-01-01 05:55] LABS: BUN/CREATININE RATIO 20.4 (10-20); CALCIUM 8.7 mg/dl (8.5-10.1); CREATININE 0.58 mg/dl (0.60-1.20); MAGNESIUM 2.4 mg/dl (1.8-2.4); POTASSIUM 4.9 mmol/L (3.5-5.1)
[2017-01-01] MEDS ORDERED: LEVOTHYROXINE 50 MCG TAB PO SCH (06:00)
[2017-01-01 06:10] LABS: CKMB/CK RATIO 1.5 (0-3.0)
[2017-01-01 07:28] VITALS: BP 129/71; PULSE 66; TEMP 36.9; O2SAT 97
[2017-01-01] MEDS ORDERED: AMLODIPINE BESYLATE 5 MG TAB PO SCH (09:00)
[2017-01-01] MEDS ORDERED: PANTOprazole SOD 40 MG TAB PO SCH (09:00)
[2017-01-01] MEDS ORDERED: CEROVITE ADV FORMULA TAB PO SCH ×2 (09:00)
[2017-01-01] MEDS ORDERED: FLUTICASONE PROPIONATE NA SPR 16 GM BTL SCH (09:00)
[2017-01-01] MEDS ORDERED: SERTRALINE HCL 50 MG TAB PO SCH (09:00)
[2017-01-01] MEDS ORDERED: DOCUSATE SODIUM 100 MG CAP PO SCH (09:00)
[2017-01-01] MEDS: CALCIUM 600MG + VIT D 400 IU TAB PO SCH (09:19)
[2017-01-01] MEDS: MEMANTINE 10 MG TAB PO SCH (09:20)
[2017-01-01 11:06] VITALS: BP 110/66; PULSE 64; TEMP 36.8; O2SAT 96
[2017-01-01] MEDS: SODIUM CHLOR 0.45% + 20MEQ KCL 1,000 ML IV SCH (11:20)
[2017-01-01] MEDS ORDERED: ASPEC81 PO (13:39)
--- NOTE | 2017-01-01 13:42 | Discharge Instructions ---
Discharge Instructions Date of Service Jan 01, 2017. Admission Reason for Admission: Heart Palpitations; Precordial Chest Pain Discharge Discharge Diagnosis / Problem: Heart palpitations, chest pain, left arm pain Discharge Goals Goal(s): Decrease discomfort, Improve function, Diagnostic testing (consider outpatient stress test) Activity Recommendations Activity Limitations: resume your previous activity Lifting Limitations: none Exercise/Sports Limitations: as tolerated May Resume Sexual Activity: when tolerated Shower/Bathe: no limitations Driving or Machine Use: no limitations . Instructions / Follow-Up Instructions / Follow-Up Medications: - ASPIRIN: recommend that you take a baby aspirin every day to protect heart if not already taking Palpitations, chest pain: no evidence of heart attack with negative cardiac enzymes and no changes on EKG to suggest a heart attack or ischemia recommend that you discuss with your primary care doctor and arrange for outpatient stress test with biofuels production associate FOLLOW UP - Nathalia Gillis PA-C this week to arrange for stress test Current Hospital Diet Patient's current hospital diet: AHA Diet (Heart Healthy) Discharge Diet Recommended Diet: AHA Diet (Heart Healthy) Pending Studies Studies pending at discharge: no Medical Emergencies . Who to Call and When: Medical Emergencies: If at any time you feel your situation is an emergency, please call 911 immediately. . Non-Emergent Contact Non-Emergency issues call your: Primary Care Provider Call Non-Emergent contact if: you have any medication questions . . "Provider Documentation" section prepared by Hayden Klein. . VTE Core Measure Inpt VTE Proph given/why not?: SCD's [place] Drug Monitoring Program Search Results: no issues identified
[2017-01-01 13:49] LABS: CKMB/CK RATIO 0.9 (0-3.0)
[2017-01-01 15:36] VITALS: BP 110/66; PULSE 64; TEMP 36.8; O2SAT 96
[2017-01-01] MEDS ORDERED: SIMVASTATIN 20 MG TAB PO SCH (21:00)
--- NOTE | 2017-01-02 08:16 | Discharge Summary ---
Discharge Summary Date of Service Jan 01, 2017. Discharge Summary Admission Date: Dec 31, 2016 at 21:12 Discharge Date: Jan 01, 2017 Discharge Disposition: Home Principal Diagnosis: Palpitations, left arm pain Problems/Secondary Diagnoses: Hypothyroid GERD Dyslipidemia Immunizations: Have You Had Influenza Vaccine: Yes History of Tetanus Vaccine?: Yes History of Pneumococcal: Yes History of Hepatitis B Vaccine: Unknown Procedures: none Consultations: none Medication Reconciliation New Medications: Aspirin (Aspirin EC Low Dose) 81 Mg Ectab 1 TAB PO DAILY for 30 Days, #30 TAB 3 Refills Continued Medications: Amlodipine (Norvasc) 5 Mg Tab 5 MG PO DAILY, TAB Calcium Citrate-Vitamin D (Calcium Citrate + D) 1 Tab Tab 1 TAB BID Docusate Sodium (Colace) 100 Mg Cap 1 CAP PO DAILY for 30 Days, #30 CAP Levothyroxine Sodium (Synthroid) 50 Mcg Tab 50 MCG PO DAILY, TAB Memantine (Namenda) 10 Mg Tab 10 MG PO BID, TAB Mometasone Furoate (Nasal) (Mometasone Furoate) 50 Mcg/Act Spr 1-2 SPRAYS PHONG DAILY Multiple Vitamins W/ Minerals (Ocuvite) 1 Tab Tab 2 TAB PO DAILY Multivitamins/Minerals (Mvi With Minerals) Tab 1 TAB PO DAILY, TAB Naproxen Sodium (Aleve) 220 Mg Tab 220 MG PO BID PRN for Pain, TAB Pantoprazole (Protonix) 40 Mg Tab 40 MG PO DAILY, #30 TAB Polyethylene Glycol 3350 (Miralax) 1 Pow Pow 8.5 GM PO DAILY PRN for Constipation, #527 GM Sertraline (Zoloft) 50 Mg Tab 25 MG PO DAILY, TAB Simvastatin (Simvastatin) 20 Mg Tab 20 MG PO DINNER Discharge Exam Patient felt fine during hospitalization, no chest pressure or pain, no left arm pain, no palpitations. Reviewed tele, no arrhythmias. troponin negative x 3 discussed findings with patient and her . she felt well, no symptoms, ambulated independently around the RN station several times recommended following up for exercise stress test, she agreed to this. Review of Systems: Constitutional: No fever, No chills, No sweats, No weight loss, No weakness , No fatigue, No problem reported Eyes: No worsening of vision, No eye pain, No redness, No discharge, No diplopia, No problem reported ENT: No hearing loss, No unusual epistaxis, No nasal symptoms, No sore throat, No tinnitus, No dental problems, No trouble swallowing, No problem reported Respiratory: No cough, No sputum, No wheezing, No shortness of breath, No dyspnea on exertion, No dyspnea at rest, No hemoptysis, No problem reported Cardiovascular: No chest pain, No orthopnea, No PND, No edema, No claudication, No palpitations, No problem reported Abdomen: No pain, No nausea, No vomiting, No diarrhea, No constipation, No GI bleeding, No problem reported Musculoskeletal: No joint pain, No muscle pain, No swelling, No calf pain, No problem reported Genitourinary - Female: No dysuria, No urinary frequency, No urinary urgency , No urinary incontinence, No urinary retention, No hematuria Neurologic: + memory loss (mild), No paralysis, No weakness, No numbness/ tingling, No vertigo, No balance problems, No problem reported Psychiatric: No depression symptoms, No anhedonism, No anxiety, No insomnia , No substance abuse, No problem reported Endocrine: No fatigue, No excessive thirst, No excessive urination, No problem reported Hematologic / Lymphatic: No abnormal bleeding/bruising, No clotting problems , No swollen lymph nodes, No night sweats, No problem reported Integumentary: No rash, No itch, No new/changing skin lesions, No color change, No bleeding, No problem reported Physical Exam: General Appearance: WD/WN, no apparent distress Eyes: normal inspection, EOMI, sclerae normal ENT: normal ENT inspection, hearing grossly normal, pharynx normal Neck: supple, no adenopathy, no JVD, trachea midline Respiratory/Chest: chest non-tender, lungs clear, normal breath sounds, no respiratory distress, no accessory muscle use Cardiovascular: regular rate, rhythm, no edema, no gallop, no JVD, no murmur , normal peripheral pulses Abdomen / GI: normal bowel sounds, non tender, soft, no organomegaly Extremities: normal inspection, no calf tenderness, normal capillary refill , no pedal edema, normal range of motion, pelvis stable Neurologic/Psychiatric: legal coordinator II-XII nml as tested, no motor/sensory deficits , alert, normal mood/affect, normal reflexes, oriented x 3, + pertinent finding (mild memory loss) Skin: normal color, warm/dry, no rash Lymphatic: no adenopathy Hospital Course 81 yo female with reported palpitations, left chest pain, left arm pain. No symptoms while admitted - Precordial chest pain/palpitations/left arm discomfort/hypertension troponin negative x 3 sets, no arrhythmias on monitor ambulated several laps around the RN station without symptoms discussed follow up exercise stress echo as outpatient, will follow up with PCP to arrange recommended starting aspirin 81mg daily for cardiac protection if not already taking HTN: BP stable on home regimen Hypothyroidism--continue levothyroxine sodium 50 g by mouth daily. GERD--continue pantoprazole 40 mg by mouth daily. Hyperlipidemia--continue simvastatin 20 mg by mouth daily. Check a fasting lipid profile in the a.m. Depression/dementia--continue sertraline 25 mg by mouth daily and Namenda 10 mg by mouth twice a day. Constipation--continue docusate 100 mg by mouth daily and MiraLAX 17 g by mouth daily when necessary. Allergic rhinitis--continue nasal spray a change to Flonase 1 spray to nostril daily. Total Time Spent: Greater than 30 minutes This includes examination of the patient, discharge planning, medication reconciliation, and communication with other providers. Discharge Instructions Please refer to the electronic Patient Visit Report (Discharge Instructions) for additional information. Follow-Up Nathalia FERNÁNDEZ this week Additional Copies To Nathalia Gillis,P.A.
== END 2017-01-01 16:06 | disposition home or self-care (01) ==
LOC: C.EDB 18:45 → C.2T 21:12 → ENRESERV 21:22
PROVIDERS: ADMIT Hospitalist; ATTEND Internal Medicine
DX: R00.2 Palpitations (principal); F03.90 Unspecified dementia, unspecified severity, without behavioral disturbance, psychotic disturbance, mood disturbance, and anxiety; I10 Essential (primary) hypertension; E78.5 Hyperlipidemia, unspecified; E03.9 Hypothyroidism, unspecified; K21.9 Gastro-esophageal reflux disease without esophagitis; J30.9 Allergic rhinitis, unspecified; K59.00 Constipation, unspecified; F32.9 Major depressive disorder, single episode, unspecified; Z79.82 Long term (current) use of aspirin; Z79.899 Other long term (current) drug therapy

== ENCOUNTER → 2017-05-17 | Outpatient (CLI) | payer BC ==
[~2017-05-17] MED LIST changes: +AMLO-110 PO; +ASPEC81 PO; +CALC-279; -CALC-393 PO; +DOCU-94 PO; +MOME6000 NAE; +MULT-513 PO; -MULTTAB58 PO; +NMN10 PO; +POLY335019 PO; +SERT50TA PO
[2017-05-17 13:58] LABS: BLOOD UREA NITROGEN 12 mg/dl (7-18); BUN/CREATININE RATIO 18.2 (10-20); CALCIUM 8.5 mg/dl (8.5-10.1); CARBON DIOXIDE 27 mmol/L (21-32); CHLORIDE 110 mmol/L (98-107); CHOLESTEROL 167 mg/dl (0-200); CREATININE 0.68 mg/dl (0.60-1.20); GLUCOSE 75 mg/dl (70-99); POTASSIUM 3.7 mmol/L (3.5-5.1); SODIUM 142 mmol/L (136-145)
[2017-05-17 14:09] LABS: ALB/GLOB RATIO 1.1 (0.9-2); ALKALINE PHOSPHATASE 100 U/L (45-117); ALT/SGPT 20 U/L (12-78); AST/SGOT 19 U/L (15-37); CHOLESTEROL/HDL RATIO 2.1; HDL CHOLESTEROL 79 mg/dl; LDL CHOLESTEROL CALCULATED 68 mg/dl; TRIGLYCERIDES 102 mg/dl (0-150); VERY LOW DENSITY LIPOPROT CALC 20 mg/dl
[2017-05-18 07:03] LABS: ESTIMATED AVERAGE GLUCOSE 123 mg/dl; HA1C FLAG Normal (Normal)
== END | disposition home or self-care (01) ==
LOC: C.LABBC 09:52
PROVIDERS: ATTEND Physician Assistant Medical
DX: Z00.00 Encounter for general adult medical examination without abnormal findings (principal); E03.9 Hypothyroidism, unspecified; F32.9 Major depressive disorder, single episode, unspecified; E78.5 Hyperlipidemia, unspecified; I10 Essential (primary) hypertension; R73.03 Prediabetes

== ENCOUNTER → 2017-09-22 | Outpatient (CLI) | payer BC ==
[~2017-09-22] MED LIST changes: -ASPEC81 PO; +ASPI-320 PO
[2017-09-22 14:11] LABS: BLOOD UREA NITROGEN 14 mg/dl (7-18); CALCIUM 8.8 mg/dl (8.5-10.1); CARBON DIOXIDE 29 mmol/L (21-32); CREATININE 0.75 mg/dl (0.60-1.20); GLUCOSE 76 mg/dl (70-99); SODIUM 143 mmol/L (136-145)
[2017-09-22 14:22] LABS: HEMOGLOBIN A1C 5.8 % (4.5-5.6)
== END | disposition home or self-care (01) ==
LOC: C.LABBC 11:46
PROVIDERS: ATTEND Nurse Practitioner Adult Health
DX: I10 Essential (primary) hypertension (principal); R73.03 Prediabetes; M85.80 Other specified disorders of bone density and structure, unspecified site

== ENCOUNTER 2019-07-16 20:03 | Observation (INO) ==
[2019-07-16] MEDS ORDERED: ASPIRIN CHEW 324 MG PO STA (20:17)
[2019-07-16] MEDS ORDERED: NITROGLYCERIN SL 0.4 MG/TAB TAB SL PRN (20:17)
[2019-07-16 20:27] LABS: Basophils # (auto) 0.03 K/uL (0-0.2); Basophils % (auto) 0.2 %; Eosinophils # (auto) 0.12 K/uL (0-0.5); Hematocrit (blood only) 39.5 % (37-47); Hemoglobin 12.9 g/dL (12.0-16.0); Immature Granulocytes # (auto) 0.04 K/uL (0.00-0.02); Immature Granulocytes % (auto) 0.3 %; Lymphocytes # (auto) 4.16 K/uL (1.2-3.4); Lymphocytes % (auto) 33.5 %; Mean Corpuscular Hemoglobin 30.8 pg (25-34); Mean Corpuscular Hgb Conc 32.7 g/dL (32-36); Mean Corpuscular Volume 94.3 fL (80-100); Mean Platelet Volume 10.3 fL (7.4-10.4); Monocytes # (auto) 0.91 K/uL (0.11-0.59); Monocytes % (auto) 7.3 %; Neutrophils # (auto) 7.17 K/uL (1.4-6.5); Neutrophils % (auto) 57.7 %; Platelet Count 209 K/uL (130-400); RDW Coefficient of Variation 13.9 % (11.5-14.5); RDW Standard Deviation 47.9 fL (36.4-46.3); Red Blood Count 4.19 M/uL (4.2-5.4); White Blood Count 12.43 K/uL (4.8-10.8)
[2019-07-16] MEDS ORDERED: FAMOTIDINE 20MG/5ML IV PUSH IV STA (20:33)
--- NOTE | 2019-07-16 20:46 | XRay Report ---
XR chest 1V portable HISTORY: 83 years-old Female Chest Pain acute atypical chest pain COMPARISON: Chest radiograph 12/31/2016 TECHNIQUE: Portable AP view of the chest FINDINGS: Cardiac silhouette is mildly enlarged. Linear subsegmental left basilar atelectasis/scarring. No pneu mothorax, pleural effusion or overt pulmonary edema. Degenerative changes of the shoulders and spine. IMPRESSION: No acute process. ACT 112: Negative or not required by law. The above report was generated using voice recognition software. It may contain grammatical, syntax o r spelling errors. Electronically signed by: Ron Adorno M.D. 07/16/2019 8:44 PM
[2019-07-16 20:59] LABS: Appearance Urine Cloudy (Clear); Bacteria Urine Automated Negative (Negative); Bilirubin Urine Negative (Negative); Blood Urine Negative (Negative); Color Urine Dark Yellow; Epithelial Cell Urine Auto >30 /lpf (0-5); Glucose Urine UA Negative (Negative); Ketones Urine Trace (Negative); Leukocyte Esterase Urine 1+ (Negative); Nitrite Urine Negative (Negative); Protein Urine Trace (Negative); Specific Gravity Urine 1.035 (1.000-1.030); Urobilinogen Urine Negative (Negative); WBC Urine Automated >30 /hpf (0-5); pH Urine 5.5 (4.5-7.5)
[2019-07-16 21:03] LABS: Partial Thromboplastin Ratio 0.8; Partial Thromboplastin Time 22.8 Seconds (21.0-31.0); Prothrombin Time 10.4 Seconds (9.0-12.0)
[2019-07-16 21:04] LABS: Albumin Globulin Ratio 0.9 (0.9-2); Albumin Level 3.8 gm/dl (3.4-5.0); BUN Creatinine Ratio 14.4 (10-20); Bilirubin,Total 0.6 mg/dl (0.2-1); Calcium 8.9 mg/dl (8.5-10.1); Creatinine Clr Calc Pharmacy 44.3 ml/min; Est GFR (African American) 58.6; Est GFR (Non-African American) 50.6; Globulin 4.1 gm/dl (2.5-4.0); Total Protein 7.9 gm/dl (6.4-8.2); Troponin I 0.042 ng/ml (0-0.045)
[2019-07-16] MEDS ORDERED: cephALEXin 250 MG CAP PO ONE (21:10)
[2019-07-16 21:15] LABS: Potassium 3.2 mmol/L (3.5-5.1)
--- NOTE | 2019-07-16 22:35 | Emergency Department Note ---
Entered by Alison Drew acting as a scribe for History of Present Illness General Chief complaint: Cardiac Assessment Stated complaint: Chest pain Source: patient and family Mode of arrival: ambulatory Limitations: other (dementia) History of Present Illness Onset (ago): day(s) (last night) Location: chest and abdomen Pain Consistency: + intermittent Maximum Pain Intensity: 0 Quality: + burning Exacerbated By: + eating Associated symptoms: + denies other symptoms (hematochezia, difficulty swallowing) and + nausea/vomiting The patient is an 83 year old female who presents to the Emergency Room with complaints of intermittent chest pain starting last night. The patients states that the patient was complaining of chest pain in her lower middle chest and her upper middle abdomen. He states that she was complaining of it feeling like a burning pain that radiated up into her throat. He states that it came on right after eating dinner and she immediately wanted to go lay down. He states that she wasnt able to fall asleep until 2 AM though. He reports that then this morning she didnt get up until 11 this morning. The patients states that she was fine when she woke up this morning, but after eating breakfast, she had the same thing happen. He states that it happened again at lunch and dinner. He states that he is just concerned that there is something wrong with her heart. The patients notes that she did vomit last night as she was complaining of being nauseous when she went to bed so he gave her the waste basket. He states that this morning there was then vomit in the wastebasket. The patient denies hematochezia, a history of choking, difficulty swallowing, a history of heart disease, and a history of smoking. Home Medications Home Medications Medication Instructions Recorded Confirmed Type aspirin 81 mg chewable tablet 1 tab PO DAILY tab 11/27/18 07/16/19 History calcium carbonate 500 mg (1,250 1 tab PO DAILY tab 11/27/18 07/16/19 History mg)-vitamin D3 200 unit tablet cholecalciferol (vitamin D3) 2,000 2,000 units PO DAILY 11/27/18 07/16/19 History unit tablet docusate sodium 100 mg capsule 100 mg PO DAILY #60 cap 11/27/18 07/16/19 History multivitamin 1 tab PO DAILY 11/27/18 07/16/19 History biyrtckqrbbx-ssquvybz-qwagkq 1 tab PO DAILY 11/27/18 07/16/19 History amlodipine 5 mg tablet 5 mg PO DAILY #90 tab 12/04/18 07/16/19 Rx simvastatin 20 mg tablet 20 mg PO DAILY #90 tab 12/04/18 07/16/19 Rx pantoprazole 40 mg tablet,delayed 40 mg PO QAM #90 tab 01/19/19 07/16/19 Rx release buspirone 5 mg tablet 5 mg PO BID #180 tab 02/28/19 07/16/19 Rx levothyroxine 88 mcg capsule 88 mcg PO DAILY #90 cap 06/25/19 07/16/19 Rx sertraline 100 mg tablet 150 mg PO DAILY #135 tab 07/06/19 07/16/19 Rx memantine 28 mg PO DAILY 07/16/19 07/16/19 History famotidine 20 mg PO BID 30 Days #60 tab 07/17/19 Rx Allergies Allergy/AdvReac Type Severity Reaction Status Date / Time bacitracin Allergy Unknown RASH Verified 07/06/19 11:30 donepezil Allergy Unknown UNKNOWN Verified 07/06/19 11:30 neomycin Allergy Unknown RASH Verified 07/06/19 11:30 polymyxin B Allergy Unknown RASH Verified 07/06/19 11:30 rivastigmine [From Exelon] Allergy Unknown Verified 07/16/19 23:27 hydroxyzine AdvReac Unknown THROW UP Verified 07/16/19 23:27 Past Med/Surg History Medical History Constipation (Chronic) Dementia (Chronic) Depression (Chronic) Fatigue (Chronic) Generalized osteoarthritis of multiple sites (Chronic) GERD without esophagitis (Chronic) Heart palpitations Hyperlipidemia (Chronic) Hypertension (Chronic) Hypothyroidism (Chronic) Osteopenia (Chronic) Precordial chest pain Prediabetes (Chronic) Surgical History History of appendectomy History of cataract surgery History of cholecystectomy History of dilation and curettage History of hysterectomy History of tonsillectomy and adenoidectomy Family History Father Acute myocardial infarction Social History Preferred Language: [place]i Communication Ability: Effective Cloth Examiner Machine Required: No Beliefs That Will Affect Care: None marital status: Current Living Situation: Spouse Feels Safe at Home: Yes Smoking Status: Never smoker Second Hand Exposure: No ; Hx Alcohol Use: No Hx Substance Use: No Dental Care, Regularly: Yes Physical Activity Frequency: Does not Exercise Seatbelt Use: always Review of Systems See HPI for pertinent positives & negatives. and A total of 10 systems reviewed and were otherwise negative Physical Exam Vital Signs Vital Signs - 24 hr 07/16/19 20:06 07/16/19 20:27 07/16/19 21:19 Temperature 37.0 C Temperature Source Oral Pulse Rate 80 Pulse Rate [Right] 70 Pulse Rhythm [Right] Regular Pulse Strength [Right] Normal Respiratory Rate 18 16 Respiratory Effort / Characteristics Non-Labored Non-Labored Spontaneous Respiratory Depth Normal Normal Blood Pressure 154/71 H Blood Pressure [Right Arm] 161/64 H Blood Pressure Mean 98 Blood Pressure Mean [Right Arm] 96 Blood Pressure Position [Right Arm] Sitting Pulse Oximetry 96 98 97 Oxygen Delivery Method Room Air Room Air Sepsis Recent Fever Within 48 Hours No Sepsis New/Unexplained Change in Mental Status No Sepsis Action Taken by Nursing No Action Required 07/16/19 22:38 Temperature Temperature Source Pulse Rate Pulse Rate [Right] 75 Pulse Rhythm [Right] Regular Pulse Strength [Right] Normal Respiratory Rate 16 Respiratory Effort / Characteristics Non-Labored Spontaneous Respiratory Depth Normal Blood Pressure Blood Pressure [Right Arm] 161/64 H Blood Pressure Mean Blood Pressure Mean [Right Arm] 96 Blood Pressure Position [Right Arm] Lying Pulse Oximetry 94 Oxygen Delivery Method Room Air Sepsis Recent Fever Within 48 Hours Sepsis New/Unexplained Change in Mental Status Sepsis Action Taken by Nursing Vital signs reviewed. General: Elderly appearing female, in no significant distress. HEENT: No scleral icterus, PERRLA, pale conjunctiva, neck supple. Atraumatic. Cardiovascular: Regular rate and rhythm, no extra sounds. Pulmonary: Clear to auscultation bilaterally, normal work of breathing. Abdomen: Soft, nontender, nondistended, positive bowel sounds. Musculoskeletal: Atraumatic, no peripheral edema. Neurologic: Patient awake and alert. She answers some questions appropriately, but is pleasantly confused. Skin: Warm, dry, no rash. Pale in color. Course Course 2019: The patient was evaluated in room A3. A complete history and physical exam was performed. 2219: I reevaluated the patient and updated her and her on her test results. I discussed the treatment plan with them. They verbally agree and understand. 2227: I discussed the patient's case with Dr. Espinosa[facility] Hospitalist. He will evaluate the patient for further management. Administered Medications Discontinued Medications Amlodipine Besylate (Norvasc) 5 mg PO DAILY EDITH Stop: 08/16/19 08:59 Last Admin: 07/17/19 08:55 Dose: 5 mg Documented by: [id number] Aspirin (Aspirin) 324 mg PO NOW STA Stop: 07/16/19 20:18 Last Admin: 07/16/19 20:43 Dose: 324 mg Documented by: [id number] Aspirin (Ecotrin Ectab) 81 mg PO DAILY EDITH Stop: 08/16/19 08:59 Last Admin: 07/17/19 08:56 Dose: 81 mg Documented by: [id number] Buspirone HCl (Buspar) 5 mg PO BID EDITH Stop: 08/16/19 08:59 Last Admin: 07/17/19 08:57 Dose: 5 mg Documented by: [id number] Cephalexin HCl (Keflex) 500 mg PO NOW ONE Stop: 07/16/19 21:11 Last Admin: 07/16/19 21:14 Dose: 500 mg Documented by: [id number] Hydrox/Mg Hydrox/Simethicone 18 ml/ Lidocaine HCl 6 ml/ BARCODE IDENTIFIER 1 ea 0 ml PO 0830 ONE Stop: 07/17/19 08:31 Last Admin: 07/17/19 09:16 Dose: 24 ml Documented by: [id number] Docusate Sodium (Colace) 100 mg PO DAILY EDITH Stop: 08/16/19 08:59 Last Admin: 07/17/19 08:56 Dose: 100 mg Documented by: [id number] Famotidine (Pepcid 20mg Iv Push) 20 mg IV ONE STA Stop: 07/16/19 20:34 Last Admin: 07/16/19 20:43 Dose: 20 mg Documented by: [id number] Famotidine (Pepcid) 20 mg PO BID EDITH Stop: 08/16/19 08:59 Last Admin: 07/17/19 08:58 Dose: 20 mg Documented by: [id number] Heparin Sodium (Porcine) (Heparin Sodium (Porcine)) 5,000 units SQ Q12 EDITH Stop: 08/16/19 08:59 Last Admin: 07/17/19 08:57 Dose: 5,000 units Documented by: [id number] Cosigned by: [id number] Potassium Chloride (K Kaden / Wtr) 10 meq in 100 mls @ 100 mls/hr IV Q1H EDITH Stop: 07/17/19 01:44 Last Infusion: 07/17/19 01:43 Dose: 0 mls/hr Documented by: [id number] Admin: 07/17/19 00:45 Dose: 100 mls/hr Documented by: [id number] Infusion: 07/17/19 00:45 Dose: 100 mls/hr Documented by: [id number] Admin: 07/16/19 23:45 Dose: 100 mls/hr Documented by: [id number] Levothyroxine Sodium (Synthroid) 88 mcg PO DAILYBB EDITH Stop: 08/16/19 06:29 Last Admin: 07/17/19 05:25 Dose: 88 mcg Documented by: [id number] Miscellaneous (Order Awaiting Action) 1 ea N/A QS EDITH Stop: 08/16/19 00:00 Last Admin: 07/16/19 23:45 Dose: Not Given Documented by: [id number] Multivitamins (Multivitamin Tab) 1 tab PO DAILY EDITH Stop: 08/16/19 08:59 Last Admin: 07/17/19 08:57 Dose: 1 tab Documented by: [id number] Multivitamins/Minerals (Caltrate Plus) 1 tab PO DAILY EDITH Stop: 08/16/19 08:59 Last Admin: 07/17/19 08:57 Dose: 1 tab Documented by: [id number] Pantoprazole Sodium (Protonix) 40 mg PO QAM EDITH Stop: 08/16/19 08:59 Last Admin: 07/17/19 08:56 Dose: 40 mg Documented by: [id number] Sertraline HCl (Zoloft) 150 mg PO DAILY EDIHT Stop: 08/16/19 08:59 Last Admin: 07/17/19 08:56 Dose: 150 mg Documented by: [id number] Simvastatin (Zocor) 20 mg PO DAILY EDITH Stop: 08/16/19 08:59 Last Admin: 07/17/19 08:56 Dose: 20 mg Documented by: [id number] Vitamin D (Vitamin D3) 2,000 units PO DAILY EDITH Stop: 08/16/19 08:59 Last Admin: 07/17/19 08:56 Dose: 2,000 units Documented by: [id number] Medical Decision Making Differential Diagnosis Differential diagnoses includes but is not limited to acute coronary syndrome, myocardial infarction, pericarditis, pulmonary embolus, aortic dissection, pneumonia, pneumothorax, musculoskeletal, shingles, esophageal, GERD, UTI. Medical Records Attestation: I reviewed the patient's medical records. Home Medications Current Medication List: was personally reviewed by me Laboratory Data Attestation: I reviewed the patient's lab results. Result diagrams: 07/17/19 01:56 07/17/19 01:56 Lab Results 07/16/19 07/16/19 07/16/19 Range/Units 20:15 20:15 20:40 WBC 12.43 H (4.8-10.8) K/uL RBC 4.19 L (4.2-5.4) M/uL Hgb 12.9 (12.0-16.0) g/dL Hct 39.5 (37-47) % MCV 94.3 (80-100) fL MCH 30.8 (25-34) pg MCHC 32.7 (32-36) g/dL RDW Std Deviation 47.9 H (36.4-46.3) fL RDW Coeff of Donny 13.9 (11.5-14.5) % Plt Count 209 (130-400) K/uL MPV 10.3 (7.4-10.4) fL Immature Gran % (Auto) 0.3 % Neut % (Auto) 57.7 % Lymph % (Auto) 33.5 % Gates % (Auto) 7.3 % Eos % (Auto) 1.0 % Baso % (Auto) 0.2 % Immature Gran # (Auto) 0.04 H (0.00-0.02) K/uL Neut # (Auto) 7.17 H (1.4-6.5) K/uL Lymph # (Auto) 4.16 H (1.2-3.4) K/uL Gates # (Auto) 0.91 H (0.11-0.59) K/uL Eos # (Auto) 0.12 (0-0.5) K/uL Baso # (Auto) 0.03 (0-0.2) K/uL PT (9.0-12.0) Seconds INR (0.9-1.1) APTT (21.0-31.0) Seconds PTT Ratio Sodium 142 (136-145) mmol/L Potassium (3.5-5.1) mmol/L Chloride 113 H (98-107) mmol/L Carbon Dioxide 23 (21-32) mmol/L Anion Gap 6.0 (3-11) BUN 15 (7-18) mg/dl Creatinine 1.03 (0.6-1.2) mg/dl Est Cr Clr Drug Dosing 44.3 ml/min Est GFR ( Amer) 58.6 Est GFR (Non-Af Amer) 50.6 BUN/Creatinine Ratio 14.4 (10-20) Glucose 140 H (70-99) mg/dl Calcium 8.9 (8.5-10.1) mg/dl Total Bilirubin 0.6 (0.2-1) mg/dl AST (15-37) U/L ALT 21 (12-78) U/L Alkaline Phosphatase 96 (45-117) U/L Troponin I 0.042 (0-0.045) ng/ml Total Protein 7.9 (6.4-8.2) gm/dl Albumin 3.8 (3.4-5.0) gm/dl Globulin 4.1 H (2.5-4.0) gm/dl Albumin/Globulin Ratio 0.9 (0.9-2) Lipase 107 (73-393) U/L Urine Color Dark Yellow Urine Appearance Cloudy A (Clear) Urine pH 5.5 (4.5-7.5) Ur Specific [place] 1.035 H (1.000-1.030) Urine Protein Trace H (Negative) Urine Glucose (UA) Negative (Negative) Urine Ketones Trace H (Negative) Urine Blood Negative (Negative) Urine Nitrite Negative (Negative) Urine Bilirubin Negative (Negative) Urine Urobilinogen Negative (Negative) Ur Leukocyte Esterase 1+ H (Negative) Urine WBC (Auto) >30 H (0-5) /hpf Urine RBC (Auto) 5-10 H (0-4) /hpf U Hyaline Cast (Auto) 10-30 H (0-5) /lpf U Epithel Cells (Auto) >30 H (0-5) /lpf Urine Bacteria (Auto) Negative (Negative) 07/16/19 07/16/19 07/16/19 Range/Units 20:46 20:46 21:40 WBC (4.8-10.8) K/uL RBC (4.2-5.4) M/uL Hgb (12.0-16.0) g/dL Hct (37-47) % MCV (80-100) fL MCH (25-34) pg MCHC (32-36) g/dL RDW Std Deviation (36.4-46.3) fL RDW Coeff of Donny (11.5-14.5) % Plt Count (130-400) K/uL MPV (7.4-10.4) fL Immature Gran % (Auto) % Neut % (Auto) % Lymph % (Auto) % Gates % (Auto) % Eos % (Auto) % Baso % (Auto) % Immature Gran # (Auto) (0.00-0.02) K/uL Neut # (Auto) (1.4-6.5) K/uL Lymph # (Auto) (1.2-3.4) K/uL Gates # (Auto) (0.11-0.59) K/uL Eos # (Auto) (0-0.5) K/uL Baso # (Auto) (0-0.2) K/uL PT 10.4 (9.0-12.0) Seconds INR 1.0 (0.9-1.1) APTT 22.8 (21.0-31.0) Seconds PTT Ratio 0.8 Sodium (136-145) mmol/L Potassium 3.2 L (3.5-5.1) mmol/L Chloride (98-107) mmol/L Carbon Dioxide (21-32) mmol/L Anion Gap (3-11) BUN (7-18) mg/dl Creatinine (0.6-1.2) mg/dl Est Cr Clr Drug Dosing ml/min Est GFR ( Amer) Est GFR (Non-Af Amer) BUN/Creatinine Ratio (10-20) Glucose (70-99) mg/dl Calcium (8.5-10.1) mg/dl Total Bilirubin (0.2-1) mg/dl AST 17 (15-37) U/L ALT (12-78) U/L Alkaline Phosphatase (45-117) U/L Troponin I 0.047 H* (0-0.045) ng/ml Total Protein (6.4-8.2) gm/dl Albumin (3.4-5.0) gm/dl Globulin (2.5-4.0) gm/dl Albumin/Globulin Ratio (0.9-2) Lipase (73-393) U/L Urine Color Urine Appearance (Clear) Urine pH (4.5-7.5) Ur Specific [place] (1.000-1.030) Urine Protein (Negative) Urine Glucose (UA) (Negative) Urine Ketones (Negative) Urine Blood (Negative) Urine Nitrite (Negative) Urine Bilirubin (Negative) Urine Urobilinogen (Negative) Ur Leukocyte Esterase (Negative) Urine WBC (Auto) (0-5) /hpf Urine RBC (Auto) (0-4) /hpf U Hyaline Cast (Auto) (0-5) /lpf U Epithel Cells (Auto) (0-5) /lpf Urine Bacteria (Auto) (Negative) Imaging Data Radiologist's Impression: Radiology results as stated below per my review and the radiologist's interpretation: XR chest 1V portable HISTORY: 83 years-old Female Chest Pain acute atypical chest pain COMPARISON: Chest radiograph 12/31/2016 TECHNIQUE: Portable AP view of the chest FINDINGS: Cardiac silhouette is mildly enlarged. Linear subsegmental left basilar atelectasis/scarring. No pneumothorax, pleural effusion or overt pulmonary edema. Degenerative changes of the shoulders and spine. IMPRESSION: No acute process. ACT 112: Negative or not required by law. The above report was generated using voice recognition software. It may contain grammatical, syntax or spelling errors. Electronically signed by: Ron Adorno M.D. 07/16/2019 8:44 PM ECG Data Attestation: I personally reviewed and interpreted this ECG as follows: Indication: + chest pain Rate (beats per minute): 72 Rhythm: + normal sinus ECG Intervals/blocks: + Right Bundle branch block ECG ST segments: + T-wave inversions (Anterior) ECG Findings: no PACs and no PVCs Comparison ECG Date: from (12/31/2016) Change: the following changes noted (RBBB and TWI are new) Additional Comments: An order for cardiac monitoring was placed and the pt is found to be in a NSR at Blood Pressure Blood Pressure Findings: Elevated blood pressure Blood Pressure Disposition: further management by hospitalist MDM Narrative This pt was evaluated and appeared to be in no distress. IV access was obtained and lab work was drawn. Pt was placed on the eyedotter an found to be in a NSR. Pt was given IV pepcid 20 mg and ASA 324 mg po. Lab work is fairly reassuring. Initial troponin was negative and a 90 min trend was slightly higher. UA is contaminated will be sent for cx. Keflex 500 mg po was administered. Given the pt's dementia and difficult history, the pt will be evaluated for further management by the hospitalist service. Pt and were made aware of the plan and agree. Impression & Plan Epigastric pain, Elevated troponin Discharge Plan Visit Data *Final* Discharge Date/Time: 07/16/19 23:05 Chief Complaint: Cardiac Assessment Stated Complaint: Chest pain ED Provider: Guillermina Ureña Discharge Problem: Epigastric pain, Elevated troponin Patient Disposition: Admitted As Inpatient Condition: Fair Discharge Instructions Interventions: ED Discharge Assessment Last Done: 07/16/19 23:05 The scribe's documentation has been prepared under my direction and personally reviewed by me in its entirety. I confirm that the note above accurately reflects all work, treatment, procedures, and medical decision making performed by me.
--- NOTE | 2019-07-16 23:09 | History & Physical Report ---
Date of Service July 16, 2019 Assessment & Plan (1) Atypical chest pain: Obs PCU trend trops doubt cardiac, appears to be GI in origin Will add Pepcid and Mylanta prn. She has had cholecystectomy in the past. PRN NTG. DVT prophylaxis = SCDs and sub-q heparin. Patient given single dose of Keflex in the ED for UTI. I do not feel she has UTI. I did not order antibioitcs. (2) Elevated troponin: Minimal elevation will trend. (3) Dementia: Patient knows her name only. Continue memantine. (4) GERD without esophagitis: Continue Pantoprazole Added Pepcid for now. (5) Hyperlipidemia: Cont. simvastatin. (6) Hypertension: Cont. amlodipine. (7) Hypothyroidism: Cont. levothyroxine. (8) Hypokalemia: Gave #2 K-riders recheck bmp in am. History of Present Illness 83 y/o female presented to the ED with complaint of intermittent lower substernal burning chest pain that radiated up into her throat. The first episode occurred shortly after a meal and as she went to lay down. This am she felt fine upon waking, but after morning meal symptoms returned. She vomited x2 overnight and has had nausea. No SOB, cough, F/C, diarrhea, or loss of co nsciousness. She tells me that she feels fine at this time. Primary Care Provider: Olayinka Santiago, Allergies Allergy/AdvReac Type Severity Reaction Status Date / Time bacitracin Allergy Unknown RASH Verified 07/06/19 11:30 donepezil Allergy Unknown UNKNOWN Verified 07/06/19 11:30 hydroxyzine Allergy Unknown THROW UP Verified 07/06/19 11:30 neomycin Allergy Unknown RASH Verified 07/06/19 11:30 polymyxin B Allergy Unknown RASH Verified 07/06/19 11:30 rivastigmine [From Exelon] Allergy Verified 07/06/19 11:30 Home Medications Home Medications Medication Instructions Recorded Confirmed Type aspirin 81 mg chewable tablet 1 tab PO DAILY tab 11/27/18 07/16/19 History calcium carbonate 500 mg (1,250 1 tab PO DAILY tab 11/27/18 07/16/19 History mg)-vitamin D3 200 unit tablet cholecalciferol (vitamin D3) 2,000 2,000 units PO DAILY 11/27/18 07/16/19 History unit tablet docusate sodium 100 mg capsule 100 mg PO DAILY #60 cap 11/27/18 07/16/19 History multivitamin 1 tab PO DAILY 11/27/18 07/16/19 History dsaujaesynuf-kgkvhlji-vxlxzt 1 tab PO DAILY 11/27/18 07/16/19 History amlodipine 5 mg tablet 5 mg PO DAILY #90 tab 12/04/18 07/16/19 Rx simvastatin 20 mg tablet 20 mg PO DAILY #90 tab 12/04/18 07/16/19 Rx pantoprazole 40 mg tablet,delayed 40 mg PO QAM #90 tab 01/19/19 07/16/19 Rx release buspirone 5 mg tablet 5 mg PO BID #180 tab 02/28/19 07/16/19 Rx levothyroxine 88 mcg capsule 88 mcg PO DAILY #90 cap 06/25/19 07/16/19 Rx sertraline 100 mg tablet 150 mg PO DAILY #135 tab 07/06/19 07/16/19 Rx memantine 28 mg PO DAILY 07/16/19 07/16/19 History Past Med/Surg History Medical History Constipation (Chronic) Dementia (Chronic) Depression (Chronic) Fatigue (Chronic) Generalized osteoarthritis of multiple sites (Chronic) GERD without esophagitis (Chronic) Heart palpitations Hyperlipidemia (Chronic) Hypertension (Chronic) Hypothyroidism (Chronic) Osteopenia (Chronic) Precordial chest pain Prediabetes (Chronic) Surgical History History of appendectomy History of cataract surgery History of cholecystectomy History of dilation and curettage History of hysterectomy History of tonsillectomy and adenoidectomy Family History Father Acute myocardial infarction Social History marital status: Current Living Situation: Spouse Feels Safe at Home: Yes Smoking Status: Never smoker Second Hand Exposure: No ; Hx Alcohol Use: Yes Alcohol type: wine and hard liquor Alcohol Intake Frequency: Rarely Hx Substance Use: No Dental Care, Regularly: Yes Physical Activity Frequency: Does not Exercise Seatbelt Use: always Review of Systems Review of Systems: All systems reviewed & are unremarkable except as noted in HPI & below Physical Exam Physical Exam: General- adult female, NAD Head- atraumatic Eyes- PERRL, EOMI, anicteric ENT- oropharynx clear Neck- supple, no JVD, no adenopathy, no thyromegaly; carotids +2/2, no bruits appreciated Lungs- CTA b/l no R/R/W. Heart- regular rhythm; no murmur, no gallop, no rub appreciated Abdomen- normal bowel sounds, soft, nontender. Extremities- no pretibial edema, no calf tenderness; peripheral pulses intact Neuro- alert, oriented x 1 (person only); PERRL, EOMI; data operations director II-XII grossly intact, Non-focal. Skin- warm & dry Results & Data Vital Signs (Past 12 Hours) Vital Signs Temp Pulse Pulse Resp BP BP Pulse Ox 07/16/19 22:38 75 16 161/64 H 94 07/16/19 21:19 70 16 161/64 H 97 07/16/19 20:27 98 07/16/19 20:06 37.0 C 80 18 154/71 H 96 Laboratory Results Laboratory Results WBC 12.43 K/uL (4.8-10.8) H 07/16/19 20:15 RBC 4.19 M/uL (4.2-5.4) L 07/16/19 20:15 Hgb 12.9 g/dL (12.0-16.0) 07/16/19 20:15 Hct 39.5 % (37-47) 07/16/19 20:15 MCV 94.3 fL (80-100) 07/16/19 20:15 MCH 30.8 pg (25-34) 07/16/19 20:15 MCHC 32.7 g/dL (32-36) 07/16/19 20:15 RDW Std Deviation 47.9 fL (36.4-46.3) H 07/16/19 20:15 RDW Coeff of Donny 13.9 % (11.5-14.5) 07/16/19 20:15 Plt Count 209 K/uL (130-400) 07/16/19 20:15 MPV 10.3 fL (7.4-10.4) 07/16/19 20:15 Immature Gran % (Auto) 0.3 % 07/16/19 20:15 Neut % (Auto) 57.7 % 07/16/19 20:15 Lymph % (Auto) 33.5 % 07/16/19 20:15 Dixon % (Auto) 7.3 % 07/16/19 20:15 Eos % (Auto) 1.0 % 07/16/19 20:15 Baso % (Auto) 0.2 % 07/16/19 20:15 Immature Gran # (Auto) 0.04 K/uL (0.00-0.02) H 07/16/19 20:15 Neut # (Auto) 7.17 K/uL (1.4-6.5) H 07/16/19 20:15 Lymph # (Auto) 4.16 K/uL (1.2-3.4) H 07/16/19 20:15 Dixon # (Auto) 0.91 K/uL (0.11-0.59) H 07/16/19 20:15 Eos # (Auto) 0.12 K/uL (0-0.5) 07/16/19 20:15 Baso # (Auto) 0.03 K/uL (0-0.2) 07/16/19 20:15 PT 10.4 Seconds (9.0-12.0) 07/16/19 20:46 INR 1.0 (0.9-1.1) 07/16/19 20:46 APTT 22.8 Seconds (21.0-31.0) 07/16/19 20:46 PTT Ratio 0.8 07/16/19 20:46 Sodium 142 mmol/L (136-145) 07/16/19 20:15 Potassium 3.2 mmol/L (3.5-5.1) L 07/16/19 20:46 Chloride 113 mmol/L (98-107) H 07/16/19 20:15 Carbon Dioxide 23 mmol/L (21-32) 07/16/19 20:15 Anion Gap 6.0 (3-11) 07/16/19 20:15 BUN 15 mg/dl (7-18) 07/16/19 20:15 Creatinine 1.03 mg/dl (0.6-1.2) 07/16/19 20:15 Est Cr Clr Drug Dosing 44.3 ml/min 07/16/19 20:15 Est GFR ( Amer) 58.6 07/16/19 20:15 Est GFR (Non-Af Amer) 50.6 07/16/19 20:15 BUN/Creatinine Ratio 14.4 (10-20) 07/16/19 20:15 Glucose 140 mg/dl (70-99) H 07/16/19 20:15 Calcium 8.9 mg/dl (8.5-10.1) 07/16/19 20:15 Total Bilirubin 0.6 mg/dl (0.2-1) 07/16/19 20:15 AST 17 U/L (15-37) 07/16/19 20:46 ALT 21 U/L (12-78) 07/16/19 20:15 Alkaline Phosphatase 96 U/L (45-117) 07/16/19 20:15 Troponin I 0.047 ng/ml (0-0.045) H* 07/16/19 21:40 Total Protein 7.9 gm/dl (6.4-8.2) 07/16/19 20:15 Albumin 3.8 gm/dl (3.4-5.0) 07/16/19 20:15 Globulin 4.1 gm/dl (2.5-4.0) H 07/16/19 20:15 Albumin/Globulin Ratio 0.9 (0.9-2) 07/16/19 20:15 Lipase 107 U/L (73-393) 07/16/19 20:15 Urine Color Dark Yellow 07/16/19 20:40 Urine Appearance Cloudy (Clear) A 07/16/19 20:40 Urine pH 5.5 (4.5-7.5) 07/16/19 20:40 Ur Specific [place] 1.035 (1.000-1.030) H 07/16/19 20:40 Urine Protein Trace (Negative) H 07/16/19 20:40 Urine Glucose (UA) Negative (Negative) 07/16/19 20:40 Urine Ketones Trace (Negative) H 07/16/19 20:40 Urine Blood Negative (Negative) 07/16/19 20:40 Urine Nitrite Negative (Negative) 07/16/19 20:40 Urine Bilirubin Negative (Negative) 07/16/19 20:40 Urine Urobilinogen Negative (Negative) 07/16/19 20:40 Ur Leukocyte Esterase 1+ (Negative) H 07/16/19 20:40 Urine WBC (Auto) >30 /hpf (0-5) H 07/16/19 20:40 Urine RBC (Auto) 5-10 /hpf (0-4) H 07/16/19 20:40 U Hyaline Cast (Auto) 10-30 /lpf (0-5) H 07/16/19 20:40 U Epithel Cells (Auto) >30 /lpf (0-5) H 07/16/19 20:40 Urine Bacteria (Auto) Negative (Negative) 07/16/19 20:40 Diagnostic Findings [place], [place] [phone] XRay Report Patient: EDWAR MONTES Date: 07/16/19 MR#: [id number]: [address] Acct ID:[id number]: Date: 1935City Zip: [place] [address] Age: 83Location: ED Sex: F Room/Bed: Att Phy:Diagnosis: INDIGESTION, EXHAUSTED Cara Phy: Olayinka Santiago, DOService Date: 07/16/19 Fam Phy:Interpreting Phy: Lucien Adorno Admit Phy: Ordering Phy: Guillermina Ureña M.D. cc: ~ XR chest 1V portable HISTORY: 83 years-old Female Chest Pain acute atypical chest pain COMPARISON: Chest radiograph 12/31/2016 TECHNIQUE: Portable AP view of the chest FINDINGS: Cardiac silhouette is mildly enlarged. Linear subsegmental left basilar atelectasis/scarring. No pneumothorax, pleural effusion or overt pulmonary edema. Degenerative changes of the shoulders and spine. IMPRESSION: No acute process. ACT 112: Negative or not required by law. The above report was generated using voice recognition software. It may contain grammatical, syntax or spelling errors. Electronically signed by: Ron Adorno M.D. 07/16/2019 8:44 PM Dictated: 07/16/192043 Transcribed: 07/16/192043 Code Status & VTE Plan VTE Prophylaxis Plan VTE Prophylaxis will be ordered: Yes PG Care Time/CCT Total # of Minutes Spent Total Time Spent: 55 Total Time Spent with Patient: Total time spent is greater than 50% in coordination of care (as documented) at patient's floor/unit and/or counseling patient: Coding Level of Care Code 29916 OBS Care - Level 3 Diagnoses Atypical chest pain R07.89 Elevated troponin R79.89 Dementia F03.90 GERD without esophagitis K21.9 Hyperlipidemia E78.5 Hypertension I10 Hypothyroidism E03.9 Hypokalemia E87.6
[2019-07-16] MEDS ORDERED: HydrALAZINE HCL 20 MG/ML VIAL IV PRN (23:13)
[2019-07-16] MEDS ORDERED: ONDANSETRON INJ 2 MG/ML 2 ML VIAL IV PRN (23:13)
[2019-07-16] MEDS ORDERED: ACETAMINOPHEN 325 MG TAB PO PRN (23:13)
[2019-07-16] MEDS ORDERED: POTASSIUM CHLORIDE / WTR 10 MEQ/100 ML PLCT IV STA (23:13)
[2019-07-16] MEDS: POTASSIUM CHLORIDE / WTR 10 MEQ/100 ML PLCT IV SCH (23:45)
[2019-07-17] MEDS: POTASSIUM CHLORIDE / WTR 10 MEQ/100 ML PLCT IV SCH (00:45)
[2019-07-17 02:07] LABS: Hematocrit (blood only) 36.1 % (37-47); Hemoglobin 11.7 g/dL (12.0-16.0); Mean Corpuscular Hemoglobin 30.2 pg (25-34); Mean Corpuscular Hgb Conc 32.4 g/dL (32-36); Mean Corpuscular Volume 93.3 fL (80-100); Platelet Count 209 K/uL (130-400); RDW Coefficient of Variation 13.8 % (11.5-14.5); RDW Standard Deviation 47.2 fL (36.4-46.3); Red Blood Count 3.87 M/uL (4.2-5.4); White Blood Count 11.08 K/uL (4.8-10.8)
[2019-07-17 02:28] LABS: BUN Creatinine Ratio 17.3 (10-20); Calcium 8.6 mg/dl (8.5-10.1); Creatinine Clr Calc Pharmacy 52.4 ml/min; Est GFR (African American) 71.9; Potassium 3.5 mmol/L (3.5-5.1)
[2019-07-17 02:32] LABS: Troponin I 0.043 ng/ml (0-0.045)
[2019-07-17] MEDS ORDERED: LEVOTHYROXINE SODIUM 88 MCG TABLET PO SCH (06:30)
[2019-07-17] MEDS ORDERED: ALUMINUM/MAGNESIUM SUSP 18 ML, LIDOCAINE HCL VISCOUS 2% 6 ML, BARCODE IDENTIFIER 1 EA PO ONE (08:30)
[2019-07-17] MEDS ORDERED: SIMVASTATIN 20 MG TAB PO SCH (09:00)
[2019-07-17] MEDS ORDERED: HEPARIN SOD 5,000 UNIT/0.5 ML VIAL SQ SCH (09:00)
[2019-07-17] MEDS ORDERED: CHOLECALCIFEROL 1,000 UNITS 25 MCG TAB PO SCH (09:00)
[2019-07-17] MEDS ORDERED: CALCIUM 600MG + VIT D 400 IU TAB PO SCH (09:00)
[2019-07-17] MEDS ORDERED: AMLODIPINE BESYLATE 5 MG TAB PO SCH (09:00)
[2019-07-17] MEDS ORDERED: MULTIVITAMIN MINERALS LUTEIN PO SCH (09:00)
[2019-07-17] MEDS ORDERED: FAMOTIDINE 20 MG TAB PO SCH (09:00)
[2019-07-17] MEDS ORDERED: ASPIRIN 81 MG ECTAB PO SCH (09:00)
[2019-07-17] MEDS ORDERED: PANTOprazole 40 MG TAB PO SCH (09:00)
[2019-07-17] MEDS ORDERED: MULTIVITAMIN TAB PO SCH (09:00)
[2019-07-17] MEDS ORDERED: DOCUSATE SODIUM 100 MG CAP PO SCH (09:00)
[2019-07-17] MEDS ORDERED: SERTRALINE HCL 50 MG TABLET PO SCH (09:00)
[2019-07-17 09:54] LABS: Chol HDL Ratio 3; Cholesterol 178 mg/dl (0-200); HDL Cholesterol 62 mg/dl; LDL Cholesterol Calculated 94 mg/dl; Triglycerides 109 mg/dl (0-150); VLDL Cholesterol 22 mg/dl
--- NOTE | 2019-07-17 11:24 | Electrocardiogram Report ---
Test Reason : Blood Pressure : / mmHG Vent. Rate : 072 BPM Atrial Rate : 072 BPM P-R Int : 136 ms QRS Dur : 124 ms QT Int : 408 ms P-R-T Axes : 063 000 025 degrees QTc Int : 446 ms Normal sinus rhythm Possible Left atrial enlargement Right bundle branch block Abnormal ECG When compared with ECG of 31-DEC-2016 18:54, Right bundle branch block is now Present Confirmed by Chris Bain ([id number]) on 07/17/2019 11:23:37 AM Referred By: REFERRED SELF Confirmed By:Chris Bain
--- NOTE | 2019-07-17 13:51 | Cardiology Consultation ---
Date of Consultation July 17, 2019 Assessment & Plan (1) Atypical chest pain: Mrs. Spivey is an 83-year-old female with a history of Dementia, Depression, GERD, Generalized Osteoarthritis, Hypertension, Hyperlipidemia, Prediabetes, Hypothyroidism, and Palpitations was brought to [facility] last evening after patient complained of burning chest pain, burning upper abdominal pain that radiated up into her throat, and then she developed recurrent vomiting that began on the evening of 07/15/2019 shortly after eating dinner. She went to lie down in bed, but symptoms persisted. She had some vomiting throughout the night but by morning was better. She woke up at 11:00 a.m. and the patient ate breakfast. She developed the same chest and abdominal discomfort along with recurrent nausea and vomiting. The same symptoms recurred after she tried eat lunch and then dinner on the evening of 07/16/2019. Considering the relationship with food intake followed by the onset of her symptoms -- including burning chest pain, burning abdominal pain, radiation to throat, followed by nausea and vomiting -- would strongly suspect that her discomfort is related to her esophagus and/or stomach. Suspect that she has developed an esophagitis with possibly esophageal spasm or some other form of ob struction. Additionally, her troponin levels are not trending in a manner that would suggest an acute coronary syndrome. Recommend further GI evaluation either while hospitalized or following discha rge. Would recommend using a proton pump inhibitor in the meantime. No further cardiac evaluation is necessary at this time. Present on Admission?: Yes (2) Elevated troponin: -- As outlined above, this does not appear to be in acute coronary syndrome. (3) Epigastric pain: -- Recommend follow up with GI. Supervising Physician Co-Signing Physician Notes Chris Bain MD History of Present Illness Reason for Consultation: -- Chest Pain. Requesting Physician: Yue Akbar MD Attending Physician: Chris Bain MD History of Present Illness Mrs. Spivey is an 83-year-old female with a history of Dementia, Depression, GERD, Generalized Osteoarthritis, Hypertension, Hyperlipidemia, Prediabetes, Hypothyroidism, and Palpitations was brought to [facility] ER last evening after patient complained of burning chest pain, burning upper abdominal pain that radiated up into her throat, and then she developed recurrent vomiting that began on the evening of 07/15/2019 shortly after eating dinner. She went to lie down in bed, but symptoms persisted. She had some vomiting throughout the night but by morning was better. She woke up at 11:00 a.m. and the patient ate breakfast. She developed the same chest and abdominal discomfort along with recurrent nausea and vomiting. The same symptoms recurred after she tried eat lunch and then dinner on the evening of 07/16/2019 -- so her brought her to the ER. The present time, the patient offers no complaints. She specifically denies any chest pain or abdominal pain. She has not had any nausea or vomiting today. She denies any history of exertional chest pain or unusual dyspnea on exertion, but she is not a reliable historian due to her dementia. Patient does not have any history of CAD that we know of although she has cardiac risk factors. Her EKG on admission shows sinus rhythm with a right bundle branch block. Her RBBB is new. Her troponin I levels are as shown below. Allergies Allergy/AdvReac Type Severity Reaction Status Date / Time bacitracin Allergy Unknown RASH Verified 07/06/19 11:30 donepezil Allergy Unknown UNKNOWN Verified 07/06/19 11:30 neomycin Allergy Unknown RASH Verified 07/06/19 11:30 polymyxin B Allergy Unknown RASH Verified 07/06/19 11:30 rivastigmine [From Exelon] Allergy Unknown Verified 07/16/19 23:27 hydroxyzine AdvReac Unknown THROW UP Verified 07/16/19 23:27 Home Medications Home Medications Medication Instructions Recorded Confirmed Type aspirin 81 mg chewable tablet 1 tab PO DAILY tab 11/27/18 07/16/19 History calcium carbonate 500 mg (1,250 1 tab PO DAILY tab 11/27/18 07/16/19 History mg)-vitamin D3 200 unit tablet cholecalciferol (vitamin D3) 2,000 2,000 units PO DAILY 11/27/18 07/16/19 History unit tablet docusate sodium 100 mg capsule 100 mg PO DAILY #60 cap 11/27/18 07/16/19 History multivitamin 1 tab PO DAILY 11/27/18 07/16/19 History ncwgywsnvths-cweanvrb-qfdfev 1 tab PO DAILY 11/27/18 07/16/19 History amlodipine 5 mg tablet 5 mg PO DAILY #90 tab 12/04/18 07/16/19 Rx simvastatin 20 mg tablet 20 mg PO DAILY #90 tab 12/04/18 07/16/19 Rx pantoprazole 40 mg tablet,delayed 40 mg PO QAM #90 tab 01/19/19 07/16/19 Rx release buspirone 5 mg tablet 5 mg PO BID #180 tab 02/28/19 07/16/19 Rx levothyroxine 88 mcg capsule 88 mcg PO DAILY #90 cap 06/25/19 07/16/19 Rx sertraline 100 mg tablet 150 mg PO DAILY #135 tab 07/06/19 07/16/19 Rx memantine 28 mg PO DAILY 07/16/19 07/16/19 History famotidine 20 mg PO BID 30 Days #60 tab 07/17/19 Rx Patient History Medical History Constipation (Chronic) Dementia (Chronic) Depression (Chronic) Fatigue (Chronic) Generalized osteoarthritis of multiple sites (Chronic) GERD without esophagitis (Chronic) Heart palpitations Hyperlipidemia (Chronic) Hypertension (Chronic) Hypothyroidism (Chronic) Osteopenia (Chronic) Precordial chest pain Prediabetes (Chronic) Surgical History History of appendectomy History of cataract surgery History of cholecystectomy History of dilation and curettage History of hysterectomy History of tonsillectomy and adenoidectomy Family History Father Acute myocardial infarction Social History Preferred Language: Bulgarian Communication Ability: Effective Sales Consultant Required: No Beliefs That Will Affect Care: None marital status: Current Living Situation: Spouse Feels Safe at Home: Yes Smoking Status: Never smoker Second Hand Exposure: No ; Hx Alcohol Use: No Hx Substance Use: No Dental Care, Regularly: Yes Physical Activity Frequency: Does not Exercise Seatbelt Use: always Physical Exam Physical Exam: GENERAL: Patient in no acute distress. HEENT: Head is atraumatic, normocephalic. EOM's intact. Facies symmetric. No perioral cyanosis. NECK: No JVD. JVP is at the level of the clavicle sitting upright. Carotid upstrokes are + 2 bilaterally. No bruits are noted. CHEST/LUNGS: Clear to auscultation throughout all lung aaron. No wheezes, rales, or crackles. CVS: S1 and S2 are regular without murmurs, gallops, or rubs. PMI is nondisplaced. No lifts, heaves, or thrills. No abdominal aortic or renal bruits. ABDOMINAL EXAM: Bowel sounds are present. There is tenderness to palpation in the midepigastrium. No guarding or rigidity. No organomegaly. EXTREMITIES: No clubbing or cyanosis. No edema. Intact posterior tibial and radial pulses bilaterally. NEUROLOGIC EXAM: Patient is awake, alert, and interactive. Pleasant and cooperative. Results & Data ([facility]) Vital Signs (Past 12 Hours) Vital Signs Temp Pulse Resp BP BP Pulse Ox 07/17/19 11:12 37.2 C 67 18 117/70 94 07/17/19 07:57 37.0 C 65 16 120/52 L 96 07/17/19 03:32 36.8 C 70 18 156/69 H 94 Laboratory Results Laboratory Results - last 24 hr 07/16/19 07/16/19 07/16/19 20:15 20:15 20:40 WBC 12.43 H RBC 4.19 L Hgb 12.9 Hct 39.5 MCV 94.3 MCH 30.8 MCHC 32.7 RDW Std Deviation 47.9 H RDW Coeff of Donny 13.9 Plt Count 209 MPV 10.3 Immature Gran % (Auto) 0.3 Neut % (Auto) 57.7 Lymph % (Auto) 33.5 [place] % (Auto) 7.3 Eos % (Auto) 1.0 Baso % (Auto) 0.2 Immature Gran # (Auto) 0.04 H Neut # (Auto) 7.17 H Lymph # (Auto) 4.16 H [place] # (Auto) 0.91 H Eos # (Auto) 0.12 Baso # (Auto) 0.03 PT INR APTT PTT Ratio Sodium 142 Potassium Chloride 113 H Carbon Dioxide 23 Anion Gap 6.0 BUN 15 Creatinine 1.03 Est Cr Clr Drug Dosing 44.3 Est GFR ( Amer) 58.6 Est GFR (Non-Af Amer) 50.6 BUN/Creatinine Ratio 14.4 Glucose 140 H Calcium 8.9 Total Bilirubin 0.6 AST ALT 21 Alkaline Phosphatase 96 Troponin I 0.042 Total Protein 7.9 Albumin 3.8 Globulin 4.1 H Albumin/Globulin Ratio 0.9 Triglycerides Cholesterol LDL Cholesterol, Calc VLDL Cholesterol, Calc HDL Cholesterol Cholesterol/HDL Ratio Lipase 107 Urine Color Dark Yellow Urine Appearance Cloudy A Urine pH 5.5 Ur Specific [place] 1.035 H Urine Protein Trace H Urine Glucose (UA) Negative Urine Ketones Trace H Urine Blood Negative Urine Nitrite Negative Urine Bilirubin Negative Urine Urobilinogen Negative Ur Leukocyte Esterase 1+ H Urine WBC (Auto) >30 H Urine RBC (Auto) 5-10 H U Hyaline Cast (Auto) 10-30 H U Epithel Cells (Auto) >30 H Urine Bacteria (Auto) Negative 07/16/19 07/16/19 07/16/19 20:46 20:46 21:40 WBC RBC Hgb Hct MCV MCH MCHC RDW Std Deviation RDW Coeff of Donny Plt Count MPV Immature Gran % (Auto) Neut % (Auto) Lymph % (Auto) [place] % (Auto) Eos % (Auto) Baso % (Auto) Immature Gran # (Auto) Neut # (Auto) Lymph # (Auto) [place] # (Auto) Eos # (Auto) Baso # (Auto) PT 10.4 INR 1.0 APTT 22.8 PTT Ratio 0.8 Sodium Potassium 3.2 L Chloride Carbon Dioxide Anion Gap BUN Creatinine Est Cr Clr Drug Dosing Est GFR ( Amer) Est GFR (Non-Af Amer) BUN/Creatinine Ratio Glucose Calcium Total Bilirubin AST 17 ALT Alkaline Phosphatase Troponin I 0.047 H* Total Protein Albumin Globulin Albumin/Globulin Ratio Triglycerides Cholesterol LDL Cholesterol, Calc VLDL Cholesterol, Calc HDL Cholesterol Cholesterol/HDL Ratio Lipase Urine Color Urine Appearance Urine pH Ur Specific [place] Urine Protein Urine Glucose (UA) Urine Ketones Urine Blood Urine Nitrite Urine Bilirubin Urine Urobilinogen Ur Leukocyte Esterase Urine WBC (Auto) Urine RBC (Auto) U Hyaline Cast (Auto) U Epithel Cells (Auto) Urine Bacteria (Auto) 07/17/19 07/17/19 07/17/19 01:56 01:56 01:56 WBC 11.08 H RBC 3.87 L Hgb 11.7 L Hct 36.1 L MCV 93.3 MCH 30.2 MCHC 32.4 RDW Std Deviation 47.2 H RDW Coeff of Donny 13.8 Plt Count 209 MPV 10.0 Immature Gran % (Auto) Neut % (Auto) Lymph % (Auto) [place] % (Auto) Eos % (Auto) Baso % (Auto) Immature Gran # (Auto) Neut # (Auto) Lymph # (Auto) [place] # (Auto) Eos # (Auto) Baso # (Auto) PT INR APTT PTT Ratio Sodium 144 Potassium 3.5 Chloride 112 H Carbon Dioxide 27 Anion Gap 5.0 BUN 15 Creatinine 0.87 Est Cr Clr Drug Dosing 52.4 Est GFR ( Amer) 71.9 Est GFR (Non-Af Amer) 62.0 BUN/Creatinine Ratio 17.3 Glucose 111 H Calcium 8.6 Total Bilirubin AST ALT Alkaline Phosphatase Troponin I 0.043 Total Protein Albumin Globulin Albumin/Globulin Ratio Triglycerides 109 Cholesterol 178 LDL Cholesterol, Calc 94 VLDL Cholesterol, Calc 22 HDL Cholesterol 62 Cholesterol/HDL Ratio 3 Lipase Urine Color Urine Appearance Urine pH Ur Specific [place] Urine Protein Urine Glucose (UA) Urine Ketones Urine Blood Urine Nitrite Urine Bilirubin Urine Urobilinogen Ur Leukocyte Esterase Urine WBC (Auto) Urine RBC (Auto) U Hyaline Cast (Auto) U Epithel Cells (Auto) Urine Bacteria (Auto) 07/17/19 09:50 WBC RBC Hgb Hct MCV MCH MCHC RDW Std Deviation RDW Coeff of Donny Plt Count MPV Immature Gran % (Auto) Neut % (Auto) Lymph % (Auto) [place] % (Auto) Eos % (Auto) Baso % (Auto) Immature Gran # (Auto) Neut # (Auto) Lymph # (Auto) [place] # (Auto) Eos # (Auto) Baso # (Auto) PT INR APTT PTT Ratio Sodium Potassium Chloride Carbon Dioxide Anion Gap BUN Creatinine Est Cr Clr Drug Dosing Est GFR ( Amer) Est GFR (Non-Af Amer) BUN/Creatinine Ratio Glucose Calcium Total Bilirubin AST ALT Alkaline Phosphatase Troponin I 0.046 H* Total Protein Albumin Globulin Albumin/Globulin Ratio Triglycerides Cholesterol LDL Cholesterol, Calc VLDL Cholesterol, Calc HDL Cholesterol Cholesterol/HDL Ratio Lipase Urine Color Urine Appearance Urine pH Ur Specific [place] Urine Protein Urine Glucose (UA) Urine Ketones Urine Blood Urine Nitrite Urine Bilirubin Urine Urobilinogen Ur Leukocyte Esterase Urine WBC (Auto) Urine RBC (Auto) U Hyaline Cast (Auto) U Epithel Cells (Auto) Urine Bacteria (Auto) Medications Administered Active Medications Generic Name Dose Route Start Last Admin Trade Name Freq PRN Reason Stop Dose Admin Acetaminophen 650 mg 07/16/19 23:13 Tylenol PO 08/15/19 23:12 Q4H PRN mild pain or fever Amlodipine Besylate 5 mg 07/17/19 09:00 07/17/19 08:55 Norvasc PO 08/16/19 08:59 5 mg DAILY EDITH Administration Aspirin 81 mg 07/17/19 09:00 07/17/19 08:56 Ecotrin Ectab PO 08/16/19 08:59 81 mg DAILY EDITH Administration Buspirone HCl 5 mg 07/17/19 09:00 07/17/19 08:57 Buspar PO 08/16/19 08:59 5 mg BID EDITH Administration Docusate Sodium 100 mg 07/17/19 09:00 07/17/19 08:56 Colace PO 08/16/19 08:59 100 mg DAILY EDITH Administration Famotidine 20 mg 07/17/19 09:00 07/17/19 08:58 Pepcid PO 08/16/19 08:59 20 mg BID EDITH Administration Heparin Sodium (Porcine) 5,000 units 07/17/19 09:00 07/17/19 08:57 Heparin Sodium (Porcine) SQ 08/16/19 08:59 5,000 units Q12 EDITH Administration Hydralazine HCl 10 mg 07/16/19 23:13 Hydralazine Hcl IV 08/15/19 23:12 Q4H PRN Systolic BP > 160 or diastolic >95 Levothyroxine Sodium 88 mcg 07/17/19 06:30 07/17/19 05:25 Synthroid PO 08/16/19 06:29 88 mcg DAILYBB EDITH Administration Miscellaneous 1 ea 07/17/19 00:00 07/16/19 23:45 Order Awaiting Action N/A 08/16/19 00:00 Not Given QS EDITH Multivitamins 1 tab 07/17/19 09:00 07/17/19 08:57 Multivitamin Tab PO 08/16/19 08:59 1 tab DAILY EDITH Administration Multivitamins/Minerals 1 tab 07/17/19 09:00 07/17/19 08:57 Caltrate Plus PO 08/16/19 08:59 1 tab DAILY EDITH Administration Ondansetron HCl 4 mg 07/16/19 23:13 Zofran IV 08/15/19 23:12 Q6H PRN nausea or vomiting Pantoprazole Sodium 40 mg 07/17/19 09:00 07/17/19 08:56 Protonix PO 08/16/19 08:59 40 mg QAM EDITH Administration Sertraline HCl 150 mg 07/17/19 09:00 07/17/19 08:56 Zoloft PO 08/16/19 08:59 150 mg DAILY EDITH Administration Simvastatin 20 mg 07/17/19 09:00 07/17/19 08:56 Zocor PO 08/16/19 08:59 20 mg DAILY EDITH Administration Vitamin D 2,000 units 07/17/19 09:00 07/17/19 08:56 Vitamin D3 PO 08/16/19 08:59 2,000 units DAILY EDITH Administration PG Care Time/CCT Total # of Minutes Spent Total Time Spent with Patient: Total time spent is greater than 50% in coordination of care (as documented) at patient's floor/unit and/or counseling patient: Coding Level of Care Code 44436 Initial Inpt Care Lvl 3 Diagnoses Atypical chest pain R07.89 Elevated troponin R79.89 Epigastric pain R10.13
--- NOTE | 2019-07-17 15:41 | Discharge Summary ---
Date of Service July 17, 2019 Admission HPI Per Admitting Provider 83 y/o female presented to the ED with complaint of intermittent lower substernal burning chest pain that radiated up into her throat. The first episode occurred shortly after a meal and as she went to lay down. This am she felt fine upon waking, but after morning meal symptoms returned. She vomited x2 overnight and has had nausea. No SOB, cough, F/C, diarrhea, or loss of consciousness. She tells me that she feels fine at this time. Admission Exam Per Admitting Provider General- adult female, NAD Head- atraumatic Eyes- PERRL, EOMI, anicteric ENT- oropharynx clear Neck- supple, no JVD, no adenopathy, no thyromegaly; carotids +2/2, no bruits appreciated Lungs- CTA b/l no R/R/W. Heart- regular rhythm; no murmur, no gallop, no rub appreciated Abdomen- normal bowel sounds, soft, nontender. 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 Skin- warm & dry Principal Diagnosis GERD, Atypical chest pain Discharge Exam General: Resting comfortably HEENT: NC/AT; PERRLA with EOMI; [place] conjunctiva, MMM. No erythema of posterior pharynx Neck: Supple and nontender Cardiac: RRR Lungs: CTA bilaterally Abdomen: Bowel normoactive X 4; Nontender to palpation Extremities: Warm. No edema present Neuro: No focal weakness Skin: No rash Discharge Data Allergies Allergy/AdvReac Type Severity Reaction Status Date / Time bacitracin Allergy Unknown RASH Verified 07/06/19 11:30 donepezil Allergy Unknown UNKNOWN Verified 07/06/19 11:30 neomycin Allergy Unknown RASH Verified 07/06/19 11:30 polymyxin B Allergy Unknown RASH Verified 07/06/19 11:30 rivastigmine [From Exelon] Allergy Unknown Verified 07/16/19 23:27 hydroxyzine AdvReac Unknown THROW UP Verified 07/16/19 23:27 Consultations 07/16/19 22:23 ED Decision to Admit Stat 07/17/19 08:36 Consult Cardiology Routine Ordered Studies CXR 07/16 Hospital Course (1) Atypical chest pain: Likely related to GERD related symptoms. Trop did increase to 0.047, did not continue to trend up. EKG showed new RBBB, otherwise negative. Lipid panel WNL; continued home statin. Added Pepcid BID; continued home PPI daily. Also received GI cocktail. Cardiology consulted, not likely related to cardiac source and no further cardiac work-up needed to be done as an inpatient. Recommend follow up with GI to discuss EGD. (2) GERD without esophagitis: Continued Pantoprazole. Added Pepcid BID. Recommend outpatient EGD. (3) Elevated troponin: Increased to 0.047. EKG showed new RBBB. Likelihood of cardiac source is very low. (4) Dementia: Continued memantine. Pt was confused, likely at her baseline. U/a was negative (contaminated). Did not receive abx. (5) Hyperlipidemia: Continued simvastatin. (6) Hypertension: Continued amlodipine. (7) Hypothyroidism: Continued levothyroxine. (8) Hypokalemia: Replaced as needed. Discharged to home on 07/17/19. Total Time Total Time Spent Total Time Spent (In Minutes): >30 minutes Total Time Includes: Examination of the Patient, Discharge Planning, Medication Reconciliation, Communication With Other Providers and Other Discharge Plan Discharge Items Patient Disposition: Home - Self-Care Reason For Visit: UTI,ELEVATED TROPONIN Discharge Diagnosis: Elevated Troponin, Chest Pain Condition on Discharge: Fair Goals: You have been hospitalized for an acute medical problem. During your stay at [facility], we have made an effort to correct the problem that brought you to the hospital while keeping you as comfortable as possible. Medications were used to bring your condition under control and your discharge instructions will include directions for any medications you should take after leaving the hospital. Please make sure you see your Primary Care Provider as part of your follow up plan. Activity: As commented below Exercise/Sports: Gradually increase as tolerated Non-emergency contact: Primary Care Provider Call non-emergency contact if: you have any medication questions, your symptoms worsen and you have a fever Follow-up/Referrals: Robin Carballo DO [Physician] - 07/27/19 2:20 am (Please follow up with GI in 1-2 weeks to discuss EGD. Follow up will be with Dr Munson) Olayinka Santiago DO [Primary Care Provider] - 07/24/19 9:20 am Diet: Heart Healthy Addtl Attending Provider Instructions: 1. Atypical chest pain * Cardiac work up is negative. * Please continue Protonix as prescribed. * Please take Pepcid (Famotidine) twice daily for additional relief of GERD related symptoms. * Consider addition of Maalox or Mylanta (both over the counter) for breakthrough symptoms. * Please follow up with a electron gun inspector to discuss obtaining an EGD to evaluate for gastritis. Pending Studies at Discharge: Yes Studies:: Urine culture pending. Stand-Alone Forms: [facility] Medications and DC Order Prescriptions: New famotidine 20 mg Tablet 20 mg PO BID 30 Days Qty: 60 RF: 0 Continued amlodipine 5 mg tablet 5 mg PO DAILY Qty: 90 RF: 3 simvastatin 20 mg tablet 20 mg PO DAILY Qty: 90 RF: 3 levothyroxine 88 mcg capsule 88 mcg PO DAILY Qty: 90 RF: 1 calcium carbonate-vitamin D3 500 mg(1,250mg) -200 unit tablet 1 tab PO DAILY RF: 0 multivitamin [Daily Multi-Vitamin] tablet 1 tab PO DAILY RF: 0 Vision Plus Lutein tablet 1 tab PO DAILY RF: 0 cholecalciferol (vitamin D3) 2,000 unit tablet 2,000 units PO DAILY RF: 0 buspirone 5 mg tablet 5 mg PO BID Qty: 180 RF: 3 aspirin 81 mg tablet,chewable 1 tab PO DAILY RF: 0 docusate sodium 100 mg capsule 100 mg PO DAILY Qty: 60 RF: 0 pantoprazole 40 mg tablet,delayed release (DR/EC) 40 mg PO QAM Qty: 90 RF: 3 sertraline 100 mg tablet 150 mg PO DAILY Qty: 135 RF: 1 memantine 28 mg capsule,sprinkle,ER 24hr 28 mg PO DAILY RF: 0 Discharge Orders: Discharge Order (Routine); Ordered 07/17/19 Ordered By: Yue Akbar Admission Data Admit Date/Time: 07/16/19 22:43 Attending Provider: Yue Akbar Admit Provider: Param Espinosa Primary Care Provider: Olayinka Santiago Other Providers: Param Espinosa ; Chris Bain Other Interventions: Discharge Summary Assessment (RN) Last Done: 07/17/19 15:21 DC Date/Time DO NOT enter until pt leaves facility: 07/17/19 15:55 Supervising Physician Co-Signing Physician Notes PA Supervision Note: I personally saw and examined the patient. I verified all saenz points and agree with JOLENE Olivo with the following exceptions and/or additions: Patient was feeling very well, no further chest pain, not short of breath. No indigestion. Is ambulating, tolerating p.o., and anxious for discharge to home. Vitals reviewed Gen: Alert awake oriented times person and place, NAD HEENT: Anicteric sclerae, EOMI CV: RRR no mgr nl S1S2 Pulm: CTAB no wcr Abd: +BS soft NT ND no masses or hernias Ext: No edema, 2+ DP pulses Skin: No rashes, warm/dry Neuro: Full strength throughout 83-year-old female here with atypical chest pain, not likely a cardiac source although with minimally elevated troponin-seems more likely was GERD -Follow-up with PCP -Consider EGD as an outpatient -Otherwise plan outlined as above Stable for discharge to home Coding Level of Care Code D/C Day Management >30 mins Diagnoses Atypical chest pain R07.89 GERD without esophagitis K21.9 Elevated troponin R79.89 Dementia F03.90 Hyperlipidemia E78.5 Hypertension I10 Hypothyroidism E03.9 Hypokalemia E87.6
== END 2019-07-17 15:55 | disposition home or self-care (01) ==
LOC: ED 20:03 → 2S 20:03 → SUATTDRO 22:43 → 2S 23:05

== ENCOUNTER 2021-06-09 13:25 | Inpatient (IN) ==
[2021-06-09 14:19] LABS: Basophils # (auto) 0.03 K/uL (0-0.2); Basophils % (auto) 0.2 %; Eosinophils # (auto) 0.14 K/uL (0-0.5); Eosinophils % (auto) 0.8 %; Hematocrit (blood only) 33.7 % (37-47); Hemoglobin 10.8 g/dL (12.0-16.0); Immature Granulocytes # (auto) 0.05 K/uL (0.00-0.02); Immature Granulocytes % (auto) 0.3 %; Lymphocytes # (auto) 2.52 K/uL (1.2-3.4); Lymphocytes % (auto) 14.3 %; Mean Corpuscular Hemoglobin 29.1 pg (25-34); Mean Corpuscular Volume 90.8 fL (80-100); Mean Platelet Volume 9.6 fL (7.4-10.4); Monocytes # (auto) 1.76 K/uL (0.11-0.59); Neutrophils # (auto) 13.08 K/uL (1.4-6.5); Neutrophils % (auto) 74.4 %; Platelet Count 328 K/uL (130-400); RDW Coefficient of Variation 14.4 % (11.5-14.5); RDW Standard Deviation 47.5 fL (36.4-46.3); Red Blood Count 3.71 M/uL (4.2-5.4); White Blood Count 17.58 K/uL (4.8-10.8)
--- NOTE | 2021-06-09 14:25 | XRay Report ---
XR chest 1V portable CLINICAL HISTORY: recurrent falls TECHNIQUE: Single frontal radiograph of the chest was obtained. Comparison: Comparison is made to chest one view 07/16/2019 FINDINGS: No lines and tubes are seen. Cardiomegaly is noted. Airspace opacities are seen in the right lung and left retrocardiac region. No evidence of pleural effusion or pneumothorax. IMPRESSION: Airspace opacities in the right lung and left retrocardiac region, which may represent atelectasis, p neumonia, and/or aspiration. ACT 112: Negative or not required by law. Electronically signed by: Hayden Hdz M.D. 06/09/2021 2:24 PM
--- NOTE | 2021-06-09 14:36 | XRay Report ---
XR pelvis 1-2V routine CLINICAL HISTORY: recurrent falls TECHNIQUE: A single frontal view of the pelvis was obtained. Comparison: Comparison is made to right hip radiographs 06/02/2021 FINDINGS: There is no evidence of acute fracture or dislocation. The bones are anatomically aligned. Degenerati ve changes are seen in the pelvis and hip joints. The soft tissues are unremarkable. IMPRESSION: No evidence of acute bony injury. ACT 112: Negative or not required by law. Electronically signed by: Hayden Hdz M.D. 06/09/2021 2:35 PM
[2021-06-09 14:39] LABS: BUN Creatinine Ratio 20.4 (10-20); Creatinine Clr Calc Pharmacy 50.4 ml/min; Est GFR (African American) 72.9 ml/min; Est GFR (Non-African American) 62.9 ml/min; Potassium 3.4 mmol/L (3.5-5.1)
[2021-06-09] MEDS ORDERED: PIPERACILLIN/TAZOBACTAM 4.5 GM/120 ML BAG IV ONE (14:45)
--- NOTE | 2021-06-09 15:27 | CT Scan Report ---
HEAD CT NONCONTRAST CT DOSE: 537.48 mGy.cm HISTORY: recurrent falls TECHNIQUE: Multiaxial CT images of the head were performed without the use of intravenous contrast. A utomated exposure control was utilized for this study. A dose lowering technique was utilized adheri ng to the principles of ALARA. Comparison: Head CT 07/19/2016. Findings: The paranasal sinuses and mastoid air cells are clear. The calvarium and skull base are int act. There is no mass, hematoma, midline shift, acute infarct. White matter hypodensity is nonspecifi c but suggestive of microvascular ischemic change. The ventricles and sulci demonstrate mild age-rela ana lilia involutional changes. Impression: No acute intracranial abnormality. Atrophy and microvascular ischemic changes. ACT 112: Negative or not required by law. Electronically signed by: Demario Bourne M.D. 06/09/2021 3:25 PM
[2021-06-09 16:23] LABS: Influenza A virus by PCR Negative (Neg); Influenza B virus by PCR Negative (Neg); RSV by PCR Negative (Neg); SARS CoV2 RNA(COVID-19) InHosp NEGATIVE (Negative)
--- NOTE | 2021-06-09 16:26 | Emergency Department Note ---
History of Present Illness General Chief complaint: Confusion Stated complaint: CONFUSION, Time Seen by Provider: 06/09/21 14:04 Source: family ( at bedside) History of Present Illness Provider complaint: Confusion recurrent falls Onset (ago): day(s) 3 Maximum Pain Intensity: 0 Associated symptoms: + confusion 85-year-old female presents emergency department with at bedside. brought the patient into the emergency department today hoping to have her place. states that the patient has a history of dementia and she has been having increased falls and difficulty to be take care of. He states that she is now following commands and is having altered mental status. He states he cannot take care of her at home anymore would like her to be placed into a shelter. Patient denies any current pain. denies any fever. Home Medications Medication Instructions Recorded Confirmed Type aspirin 81 mg chewable tablet 1 tab PO DAILY tab 11/27/18 06/09/21 History calcium carbonate 500 mg-vitamin 1 tab PO DAILY tab 11/27/18 06/09/21 History D3 5 mcg (200 unit) tablet cholecalciferol (vitamin D3) 50 2,000 units PO DAILY 11/27/18 06/09/21 History mcg (2,000 unit) tablet docusate sodium 100 mg capsule 100 mg PO DAILY #60 cap 11/27/18 06/09/21 History multivitamin (Daily Multi-Vitamin) 1 tab PO DAILY 11/27/18 06/09/21 History mkuhghulnqtn-kqpctnzj-jaykqg 1 tab PO DAILY 11/27/18 06/09/21 History tablet (Vision Plus Lutein) zinc 50 mg tablet 50 mg PO DAILY 03/26/20 06/09/21 History cholecalciferol (vitamin D3) 1,250 50,000 unit PO .WEEK #12 cap 04/07/20 06/09/21 Rx mcg (50,000 unit) capsule levothyroxine 88 mcg capsule 88 mcg PO DAILY #90 cap 01/14/21 06/09/21 Rx sertraline 100 mg tablet 150 mg PO DAILY #135 tab 05/12/21 06/09/21 Rx buspirone 5 mg tablet 5 mg PO BID #180 tab 05/13/21 06/09/21 Rx amlodipine 5 mg tablet 5 mg PO DAILY #90 tab 06/08/21 06/09/21 Rx pantoprazole 40 mg tablet,delayed 40 mg PO QAM #90 tab 06/08/21 06/09/21 Rx release simvastatin 20 mg tablet 20 mg PO DAILY #90 tab 06/08/21 06/09/21 Rx Allergies Allergy/AdvReac Type Severity Reaction Status Date / Time bacitracin Allergy Unknown RASH Verified 06/09/21 14:19 donepezil Allergy Unknown UNKNOWN Verified 06/09/21 14:19 neomycin Allergy Unknown RASH Verified 06/09/21 14:19 polymyxin B Allergy Unknown RASH Verified 06/09/21 14:19 rivastigmine [From Exelon] Allergy Unknown Verified 06/09/21 14:19 hydroxyzine AdvReac Unknown THROW UP Verified 06/09/21 14:19 Past Med/Surg History Medical History (Updated 06/09/21 @ 18:58 by Travis Reyes) Atypical chest pain Constipation Dementia Depression Elevated troponin Epigastric pain Fatigue Generalized osteoarthritis of multiple sites GERD without esophagitis Heart palpitations Hyperlipidemia Hypertension Hypokalemia Hypothyroidism Osteopenia Precordial chest pain Prediabetes Surgical History History of appendectomy History of cataract surgery History of cholecystectomy History of dilation and curettage History of hysterectomy History of tonsillectomy and adenoidectomy Family History Father Acute myocardial infarction Denies family history of Ovarian cancer Prostate cancer Breast cancer Colorectal cancer Social History Smoking Status: Never smoker Second Hand Exposure: No; Hx Alcohol Use: Yes Alcohol type: wine Hx Substance Use: No Preferred Language: Beninese Communication Ability: Effective Visual Impairment: No Limitations Hearing Ability: Normal Relay Checker Required: No Beliefs That Will Affect Care: None marital status: Current Living Situation: Spouse Feels Safe at Home: Yes Childhood Exposure to Second-Hand Smoke: No Dental Care, Regularly: Yes Physical Activity Frequency: Daily Seatbelt Use: always Sunscreen Use: Yes Assistive Devices: None Review of Systems Unobtainable due to cognitive status Physical Exam Vital Signs Vital Signs - 24 hr 06/09/21 13:34 06/09/21 14:26 06/09/21 15:17 Temperature 36.8 C Temperature Source Oral Pulse Rate 86 Pulse Rate [Apical] Pulse Rhythm Regular Pulse Rhythm [Apical] Pulse Strength Normal Pulse Strength [Apical] Respiratory Rate 16 18 Respiratory Effort / Characteristics Non-Labored Respiratory Depth Normal Respiratory Pattern Regular Blood Pressure 164/83 H Blood Pressure [Left Arm] 121/52 L Blood Pressure Mean 110 Blood Pressure Mean [Left Arm] 75 Blood Pressure Position Lying Blood Pressure Position [Left Arm] Lying Pulse Oximetry 92 84 L 95 Oxygen Delivery Method Room Air Room Air Nasal Cannula Oxygen Flow Rate 0 2 Sepsis Recent Fever Within 48 Hours No Sepsis New/Unexplained Change in Mental Status N/A Sepsis Action Taken by Nursing No Action Required Oxygen Flow Rate - Titration 2 Pulse Oximetry Post Tiitration 95 06/09/21 17:19 06/09/21 17:33 Temperature 36.5 C Temperature Source Oral Pulse Rate Pulse Rate [Apical] 89 Pulse Rhythm Pulse Rhythm [Apical] Regular Pulse Strength Pulse Strength [Apical] Normal Respiratory Rate 20 Respiratory Effort / Characteristics Non-Labored Spontaneous Respiratory Depth Normal Respiratory Pattern Regular Blood Pressure Blood Pressure [Left Arm] 142/79 H Blood Pressure Mean Blood Pressure Mean [Left Arm] 100 Blood Pressure Position Blood Pressure Position [Left Arm] Lying Pulse Oximetry 87 L 95 Oxygen Delivery Method Nasal Cannula Nasal Cannula Oxygen Flow Rate 2 4 Sepsis Recent Fever Within 48 Hours Sepsis New/Unexplained Change in Mental Status Sepsis Action Taken by Nursing Oxygen Flow Rate - Titration 4 Pulse Oximetry Post Tiitration 92 Physical Exam HENT: Exam performed. -Head: Normocephalic and atraumatic. -Right Ear: External ear normal. No mastoid tenderness. -Left Ear: External ear normal. No mastoid tenderness. -Mouth/Throat: The oropharynx is clear and moist. No trismus in the jaw. No dental abscesses or uvula swelling. No oropharyngeal exudate or tonsillar abscesses. EYES: Conjunctivae and EOM are normal. Pupils are equal, round, and reactive to light. Right eye exhibits no discharge. Left eye exhibits no discharge. No scleral icterus. NECK: Normal range of motion. Neck supple. No JVD present. No spinous process tenderness present. No carotid bruit present. No rigidity. No tracheal deviation and normal range of motion present. No Brudzinski's sign and no Kernig's sign noted. CV: Normal rate, regular rhythm, normal heart sounds and intact distal pulses. There is no peripheral edema. Palpable radial pulses bue. PULM/CHEST: Rhonchi bilaterally -Chest Wall: She exhibits no tenderness. ABD: The abdomen is soft. Bowel sounds are normal. She has no distension. No mass is present. There is no tenderness. There is no rebound, no guarding, no Palacios's sign and no tenderness at McBurney's point. Rovsig negative MUSC/SKEL: Normal range of motion. There is no peripheral edema, tenderness or deformity. LYMPH: No cervical adenopathy. NEURO: She has normal strength. No cranial nerve deficit or sensory deficit. Coordination and gait normal. GCS eye subscore is 4. GCS verbal subscore is 5. GCS motor subscore is 6. Cerebellar tests wnl. SKIN: Skin is warm and dry. She is not diaphoretic. PSYCH: She has a normal mood and affect. Behavior is normal. Judgment and thought content normal. Course Course 1404: The patient was evaluated in room B3. A complete history and physical exam was performed Cardiac monitoring: An order was placed for continuous cardiac monitoring. The monitor shows a rate of 90 with sinus rhythm 1430: Nursing mainly aware that the patient became hypoxic on room air. Patient was placed on supplemental oxygen via nasal cannula which improved the oxygen saturation. 1615: Vital signs stable on supplemental oxygen via nasal cannula. Imaging within normal limits with the exception of x-ray shows pneumonia versus at electasis Labs show leukocytosis of 17. Given the hypoxia, leukocytosis, and x-ray findings, it is more thought that the patient has pneumonia. Patient will be treated with Zosyn for community-acquired pneumonia versus aspiration pneumonia. [facility] made [facility]. Administered Medications Discontinued Medications Piperacillin Sod/Tazobactam Sod (Zosyn) 4.5 gm in 120 mls @ 240 mls/hr IV NOW ONE Stop: 06/09/21 15:14 Last Infusion: 06/09/21 16:00 Dose: 0 mls/hr Documented by: [id number] Admin: 06/09/21 15:27 Dose: 240 mls/hr Documented by: [id number] Azithromycin 500 mg/ Dextrose 255 mls @ 125 mls/hr IV ONE ONE Stop: 06/09/21 18:29 Last Admin: 06/09/21 17:32 Dose: 125 mls/hr Documented by: [id number] Potassium Chloride (Potassium Chloride Crtab 20 Meq Tabcr) 20 meq PO NOW STA Stop: 06/09/21 17:39 Last Admin: 06/09/21 18:50 Dose: 20 meq Documented by: [id number] Critical Care Time Critical Care Time: Yes Total Critical Care Time: 57 I have personally spent greater than 57 minutes of critical care time in the direct management of this patient. This includes bedside care, interpretation of diagnostic studies, and testing, discussion with consultants, patient, and family members, and other required patient management activities. This 57 minutes is in excess of all separately billable procedures. Medical Decision Making Laboratory Data Result diagrams: 06/09/21 14:08 06/09/21 14:08 Lab Results 06/09/21 06/09/21 06/09/21 Range/Units 14:08 14:08 14:08 WBC 17.58 H (4.8-10.8) K/uL RBC 3.71 L (4.2-5.4) M/uL Hgb 10.8 L (12.0-16.0) g/dL Hct 33.7 L (37-47) % MCV 90.8 (80-100) fL MCH 29.1 (25-34) pg MCHC 32.0 (32-36) g/dL RDW Std Deviation 47.5 H (36.4-46.3) fL RDW Coeff of Donny 14.4 (11.5-14.5) % Plt Count 328 (130-400) K/uL MPV 9.6 (7.4-10.4) fL Immature Gran % (Auto) 0.3 % Neut % (Auto) 74.4 % Lymph % (Auto) 14.3 % [place] % (Auto) 10.0 % Eos % (Auto) 0.8 % Baso % (Auto) 0.2 % Neut # (Auto) 13.08 H (1.4-6.5) K/uL Lymph # (Auto) 2.52 (1.2-3.4) K/uL [place] # (Auto) 1.76 H (0.11-0.59) K/uL Eos # (Auto) 0.14 (0-0.5) K/uL Baso # (Auto) 0.03 (0-0.2) K/uL Immature Gran # (Auto) 0.05 H (0.00-0.02) K/uL Sodium 141 (136-145) mmol/L Potassium 3.4 L (3.5-5.1) mmol/L Chloride 108 H (98-107) mmol/L Carbon Dioxide 27 (21-32) mmol/L Anion Gap 5.0 (3-11) BUN 17 (7-18) mg/dl Creatinine 0.85 (0.6-1.2) mg/dl Est Cr Clr Drug Dosing 50.4 ml/min Est GFR ( Amer) 72.9 ml/min Est GFR (Non-Af Amer) 62.9 ml/min BUN/Creatinine Ratio 20.4 H (10-20) Glucose 131 H (70-99) mg/dl Lactate (0.4-2.0) mmol/L Calcium 9.0 (8.5-10.1) mg/dl Procalcitonin 0.05 (0-0.5) ng/ml SARS-CoV-2 (PCR) (Negative) Influenza Type A (PCR) (Neg) Influenza Type B (PCR) (Neg) RSV (RT-PCR) (Neg) 06/09/21 06/09/21 Range/Units 16:51 Unknown WBC (4.8-10.8) K/uL RBC (4.2-5.4) M/uL Hgb (12.0-16.0) g/dL Hct (37-47) % MCV (80-100) fL MCH (25-34) pg MCHC (32-36) g/dL RDW Std Deviation (36.4-46.3) fL RDW Coeff of Donny (11.5-14.5) % Plt Count (130-400) K/uL MPV (7.4-10.4) fL Immature Gran % (Auto) % Neut % (Auto) % Lymph % (Auto) % [place] % (Auto) % Eos % (Auto) % Baso % (Auto) % Neut # (Auto) (1.4-6.5) K/uL Lymph # (Auto) (1.2-3.4) K/uL [place] # (Auto) (0.11-0.59) K/uL Eos # (Auto) (0-0.5) K/uL Baso # (Auto) (0-0.2) K/uL Immature Gran # (Auto) (0.00-0.02) K/uL Sodium (136-145) mmol/L Potassium (3.5-5.1) mmol/L Chloride (98-107) mmol/L Carbon Dioxide (21-32) mmol/L Anion Gap (3-11) BUN (7-18) mg/dl Creatinine (0.6-1.2) mg/dl Est Cr Clr Drug Dosing ml/min Est GFR ( Amer) ml/min Est GFR (Non-Af Amer) ml/min BUN/Creatinine Ratio (10-20) Glucose (70-99) mg/dl Lactate 0.6 (0.4-2.0) mmol/L Calcium (8.5-10.1) mg/dl Procalcitonin (0-0.5) ng/ml SARS-CoV-2 (PCR) NEGATIVE (Negative) Influenza Type A (PCR) Negative (Neg) Influenza Type B (PCR) Negative (Neg) RSV (RT-PCR) Negative (Neg) Imaging Data Radiologist's Impression: Chest X-Ray 06/09/21 14:04 XR chest 1V portable CLINICAL HISTORY: recurrent falls TECHNIQUE: Single frontal radiograph of the chest was obtained. Comparison: Comparison is made to chest one view 07/16/2019 FINDINGS: No lines and tubes are seen. Cardiomegaly is noted. Airspace opacities are seen in the right lung and left retrocardiac region. No evidence of pleural effusion or pneumothorax. IMPRESSION: Airspace opacities in the right lung and left retrocardiac region, which may represent atelectasis, pneumonia, and/or aspiration. ACT 112: Negative or not required by law. Electronically signed by: Hayden Hdz M.D. 06/09/2021 2:[address] 06/09/21 14:[address] DOSE: 537.48 mGy.cm HISTORY: recurrent falls TECHNIQUE: Multiaxial CT images of the head were performed without the use of intravenous contrast. Automated exposure control was utilized for this study. A dose lowering technique was utilized adhering to the principles of ALARA. Comparison: Head CT 07/19/2016. Findings: The paranasal sinuses and mastoid air cells are clear. The calvarium and skull base are intact. There is no mass, hematoma, midline shift, acute infarct. White matter hypodensity is nonspecific but suggestive of microvascular ischemic change. The ventricles and sulci demonstrate mild age-related involutional changes. Impression: No acute intracranial abnormality. Atrophy and microvascular ischemic changes. ACT 112: Negative or not required by law. Electronically signed by: Demario Bourne M.D. 06/09/2021 3:25 PM Pelvis X-Ray 06/09/21 14:04 XR pelvis 1-2V routine CLINICAL HISTORY: recurrent falls TECHNIQUE: A single frontal view of the pelvis was obtained. Comparison: Comparison is made to right hip radiographs 06/02/2021 FINDINGS: There is no evidence of acute fracture or dislocation. The bones are anatomically aligned. Degenerative changes are seen in the pelvis and hip joints. The soft tissues are unremarkable. IMPRESSION: No evidence of acute bony injury. ACT 112: Negative or not required by law. Electronically signed by: Hayden Hdz M.D. 06/09/2021 2:35 PM ECG Data Indication: + altered mental status Rate (beats per minute): 87 Rhythm: + normal sinus ECG ST segments: + Normal ST segments Comparison ECG Date: from (July 2019) Change: no significant change Additional Comments: HI 136 QRS 128 QTc 498 MDM Narrative 1404: The patient was evaluated in room B3. A complete history and physical exam was performed Cardiac monitoring: An order was placed for continuous cardiac monitoring. The monitor shows a rate of 90 with sinus rhythm 1430: Nursing mainly aware that the patient became hypoxic on room air. Patient was placed on supplemental oxygen via nasal cannula which improved the oxygen saturation. 1615: Vital signs stable on supplemental oxygen via nasal cannula. Imaging within normal limits with the exception of x-ray shows pneumonia versus atelectasis Labs show leukocytosis of 17. Given the hypoxia, leukocytosis, and x-ray findings, it is more thought that the patient has pneumonia. Patient will be treated with Zosyn for community-acquired pneumonia versus aspiration pneumonia. [facility] made aware. Impression & Plan Hypoxia, Pneumonia Discharge Plan Visit Data Chief Complaint: Confusion Stated Complaint: CONFUSION, ED Provider: Travis Reyes Discharge Problem: Hypoxia, Pneumonia Patient Disposition: Admitted As Inpatient Discharge Instructions Interventions: ED Discharge Assessment Last Done: 06/09/21 18:48 Forms Stand Alone Forms: My [facility] Prescriptions Prescriptions: No Action cholecalciferol (vitamin D3) 1,250 mcg (50,000 unit) capsule 50,000 unit PO .WEEK Qty: 12 RF: 0 levothyroxine 88 mcg capsule 88 mcg PO DAILY Qty: 90 RF: 1 sertraline 100 mg tablet 150 mg PO DAILY Qty: 135 RF: 1 buspirone 5 mg tablet 5 mg PO BID Qty: 180 RF: 3 amlodipine 5 mg tablet 5 mg PO DAILY Qty: 90 RF: 3 pantoprazole 40 mg tablet,delayed release (DR/EC) 40 mg PO QAM Qty: 90 RF: 3 simvastatin 20 mg tablet 20 mg PO DAILY Qty: 90 RF: 3 calcium carbonate-vitamin D3 500 mg(1,250mg) -200 unit tablet 1 tab PO DAILY RF: 0 multivitamin [Daily Multi-Vitamin] tablet 1 tab PO DAILY RF: 0 Vision Plus Lutein tablet 1 tab PO DAILY RF: 0 cholecalciferol (vitamin D3) 2,000 unit tablet 2,000 units PO DAILY RF: 0 aspirin 81 mg tablet,chewable 1 tab PO DAILY RF: 0 docusate sodium 100 mg capsule 100 mg PO DAILY Qty: 60 RF: 0 zinc 50 mg tablet 50 mg PO DAILY RF: 0 Referrals Referrals: Olayinka Santiago DO [Primary Care Provider] -
[2021-06-09] MEDS ORDERED: AZITHROMYCIN 500 MG in DEXTROSE 5% 250 ML IV ONE (16:27)
--- NOTE | 2021-06-09 17:15 | History & Physical Report ---
Date of Service June 09, 2021 Assessment & Plan (1) Acute metabolic encephalopathy: Plan: Likely secondary to pneumonia and acute respiratory failure with hypoxia Already significantly improved after being placed on oxygen and being given antibiotics -Admit to medical floor telemetry and continue to treat pneumonia and hypoxia as below -Supportive care in the setting of her dementia (2) Pneumonia: Plan: With right upper lobe and left retrocardiac alveolar opacities seen on chest x- ray With drenching sweat at home but no documented fever there or here yet. With leukocytosis, encephalopathy, and hypoxia No cough, chest pain, or shortness of breath, however dementia prohibits thorough history Covid-19, influenza, and RSV all negative Did receive 1 dose of IV Zosyn in the ER Procalcitonin is negative but not completely specific We will treat as community-acquired pneumonia -Start ceftriaxone 1000 mg IV every 24 hours and azithromycin 500 mg x 1 now and followed by 250 mg once daily x5-day course -Check blood cultures -Supportive care -Give 2 L normal saline -Continue supplemental O2 to keep pulse ox greater than 92% -Mobilize early as possible -Follow chest x-ray to resolution in 6 to 8 weeks (3) Sepsis: Plan: As above, with leukocytosis, pneumonia, hypoxia, encephalopathy, and fevers at home Treating as above 's complaint of urinary frequency Check urinalysis with reflex to culture-of note, antibiotics have already been given prior to collection of sample (4) Acute respiratory failure with hypoxia: Plan: As above (5) Hypokalemia: Plan: Secondary to poor p.o. intake Give 20 mEq potassium chloride now Follow BMP in the morning (6) Falls: Plan: With a fall, unwitnessed, found down next to her bed yesterday Was able to get her up into the bed with EMS assistance Pelvis x-ray negative for fracture Patient denies any pain PT/OT consults placed, will likely need rehab placement (7) Dementia: Plan: Moderate to severe and progressive Followed with neurology at [facility] No longer medications for this Supportive care (8) Hypertension: Plan: Blood pressures are acceptable Continue home amlodipine (9) Hyperlipidemia: Plan: Continue statin (10) Hypothyroidism: Plan: TSH 3.03 in 01/2021 Continue home levothyroxine (11) Osteopenia: Plan: Continue vitamin D and calcium (12) Prediabetes: Plan: Hemoglobin A1c 6.1% 2017 No medications at home no need for treatment here (13) Depression: Plan: Continue home sertraline, BuSpar (14) GERD without esophagitis: Plan: Continue home pantoprazole Plan: DVT prophylaxis, FRANCIS soliman Nickyfab SQ Disposition-admit to medical floor with telemetry, but can downgrade to medical/surgical floor if hypoxia improving and no events on telemetry after 24 hours DNR/DNI as discussed with patient and her at the bedside History of Present Illness Chief Complaint: Falls, confusion Primary Care Provider: Olayinka Santiago DO This patient is an 85-year-old female with a history of HTN, hypothyroidism, hyperlipidemia, prediabetes, GERD, depression/anxiety, osteopenia, and dementia who presents to the ER with her who gives the history due to the patient's dementia. She has been having increased weakness and he is having great difficulty taking care of her. He found her next to the bed last evening and had to call the EMS to help him get her up. He reports that she has been having increased confusion and lethargy especially since this morning and he was unable to get her out of bed. He thinks that she needs to be placed in a longterm. The reports that she has not had any fever but he did note that she had a drenching sweat overnight last night. The patient denies pain anywhere. She denies any shortness of breath or chest pain, no cough and he has not noticed any cough either. She has not had any nausea or vomiting, no diarrhea that he is aware of. She denies any urinary symptoms but he did state that he has noticed she has been urinating frequently. In the ER, she was found to have bilateral lobar pneumonia on chest x-ray which was suspicious for possible aspiration. She was hypoxic and requiring 4 L nasal cannula, afebrile, and with a leukocytosis of 17,000. Her Covid-19, influenza a and B, and RSV test were all negative. A head CT noncontrast was negative for acute disease. A urinalysis had not yet been collected. In the ER, she was given IV Zosyn and added on azithromycin. She was also placed on oxygen. The patient's reports that she is significantly improved already since this morning and is pretty much back to her baseline mental status. She will be admitted for sepsis, pneumonia, acute respiratory failure with hypoxia, acute metabolic encephalopathy. Allergies Allergy/AdvReac Type Severity Reaction Status Date / Time bacitracin Allergy Unknown RASH Verified 06/09/21 14:19 donepezil Allergy Unknown UNKNOWN Verified 06/09/21 14:19 neomycin Allergy Unknown RASH Verified 06/09/21 14:19 polymyxin B Allergy Unknown RASH Verified 06/09/21 14:19 rivastigmine [From Exelon] Allergy Unknown Verified 06/09/21 14:19 hydroxyzine AdvReac Unknown THROW UP Verified 06/09/21 14:19 Home Medications Medication Instructions Recorded Confirmed Type aspirin 81 mg chewable tablet 1 tab PO DAILY tab 11/27/18 06/09/21 History calcium carbonate 500 mg-vitamin 1 tab PO DAILY tab 11/27/18 06/09/21 History D3 5 mcg (200 unit) tablet cholecalciferol (vitamin D3) 50 2,000 units PO DAILY 11/27/18 06/09/21 History mcg (2,000 unit) tablet docusate sodium 100 mg capsule 100 mg PO DAILY #60 cap 11/27/18 06/09/21 History multivitamin (Daily Multi-Vitamin) 1 tab PO DAILY 11/27/18 06/09/21 History lbiqsctnnllb-decafnxk-rnikmk 1 tab PO DAILY 11/27/18 06/09/21 History tablet (Vision Plus Lutein) zinc 50 mg tablet 50 mg PO DAILY 03/26/20 06/09/21 History cholecalciferol (vitamin D3) 1,250 50,000 unit PO .WEEK #12 cap 04/07/20 06/09/21 Rx mcg (50,000 unit) capsule levothyroxine 88 mcg capsule 88 mcg PO DAILY #90 cap 01/14/21 06/09/21 Rx sertraline 100 mg tablet 150 mg PO DAILY #135 tab 05/12/21 06/09/21 Rx buspirone 5 mg tablet 5 mg PO BID #180 tab 05/13/21 06/09/21 Rx amlodipine 5 mg tablet 5 mg PO DAILY #90 tab 06/08/21 06/09/21 Rx pantoprazole 40 mg tablet,delayed 40 mg PO QAM #90 tab 06/08/21 06/09/21 Rx release simvastatin 20 mg tablet 20 mg PO DAILY #90 tab 06/08/21 06/09/21 Rx Past Med/Surg History Medical History (Updated 06/09/21 @ 17:47 by Yue Akbar MD) Atypical chest pain Constipation Dementia Depression Elevated troponin Epigastric pain Fatigue Generalized osteoarthritis of multiple sites GERD without esophagitis Heart palpitations Hyperlipidemia Hypertension Hypokalemia Hypothyroidism Osteopenia Precordial chest pain Prediabetes Surgical History History of appendectomy History of cataract surgery History of cholecystectomy History of dilation and curettage History of hysterectomy History of tonsillectomy and adenoidectomy Family History Father Acute myocardial infarction Denies family history of Ovarian cancer Prostate cancer Breast cancer Colorectal cancer Social History Smoking Status: Never smoker Second Hand Exposure: No; Hx Alcohol Use: Yes Alcohol type: wine Hx Substance Use: No Preferred Language: Greenlandic Communication Ability: Effective Visual Impairment: No Limitations Hearing Ability: Normal Radar Engineer Required: No Beliefs That Will Affect Care: None marital status: Current Living Situation: Spouse Feels Safe at Home: Yes Childhood Exposure to Second-Hand Smoke: No Dental Care, Regularly: Yes Physical Activity Frequency: Daily Seatbelt Use: always Sunscreen Use: Yes Assistive Devices: None Review of Systems Review of Systems: All systems reviewed & are unremarkable except as noted in HPI & below Physical Exam Constitutional: WD/WN, vitals as above Eyes: PERRL, conjunctivae normal, anicteric sclerae ENMT: external ear and nose normal, oropharynx normal Neck: trachea midline, no thyromegaly Respiratory: normal respiratory effort, lungs clear to auscultation Cardiovascular: RRR, no murmur, no edema Chest (Breasts): Chest: normal inspection of chest Gastrointestinal (Abdomen): normal bowel sounds, soft, nontender, no hepatosplenomegaly Musculoskeletal: Extremities: extremities normal to inspection; no cyanosis and no clubbing Skin: no rashes, warm and dry Neurologic: moves all extremities and awake; no focal motor deficits Psychiatric: Orientation: alert, oriented to person and cooperative Lymphatic: no lymphedema Results & Data Results & Data ([facility]) Vital Signs (Past 12 Hours) Vital Signs Temp Pulse Resp BP BP Pulse Ox 06/09/21 15:17 18 121/52 L 95 06/09/21 14:26 84 L 06/09/21 13:34 36.8 C 86 16 164/83 H 92 Laboratory Results 06/09/21 06/09/21 06/09/21 Range/Units Unknown 16:51 14:08 WBC (4.8-10.8) K/uL RBC (4.2-5.4) M/uL Hgb (12.0-16.0) g/dL Hct (37-47) % MCV (80-100) fL MCH (25-34) pg MCHC (32-36) g/dL RDW Std Deviation (36.4-46.3) fL RDW Coeff of Donny (11.5-14.5) % Plt Count (130-400) K/uL MPV (7.4-10.4) fL Immature Gran % (Auto) % Neut % (Auto) % Lymph % (Auto) % [place] % (Auto) % Eos % (Auto) % Baso % (Auto) % Neut # (Auto) (1.4-6.5) K/uL Lymph # (Auto) (1.2-3.4) K/uL [place] # (Auto) (0.11-0.59) K/uL Eos # (Auto) (0-0.5) K/uL Baso # (Auto) (0-0.2) K/uL Immature Gran # (Auto) (0.00-0.02) K/uL Sodium (136-145) mmol/L Potassium (3.5-5.1) mmol/L Chloride (98-107) mmol/L Carbon Dioxide (21-32) mmol/L Anion Gap (3-11) BUN (7-18) mg/dl Creatinine (0.6-1.2) mg/dl Est Cr Clr Drug Dosing ml/min Est GFR ( Amer) ml/min Est GFR (Non-Af Amer) ml/min BUN/Creatinine Ratio (10-20) Glucose (70-99) mg/dl Lactate 0.6 (0.4-2.0) mmol/L Calcium (8.5-10.1) mg/dl Procalcitonin 0.05 (0-0.5) ng/ml SARS-CoV-2 (PCR) NEGATIVE (Negative) Influenza Type A (PCR) Negative (Neg) Influenza Type B (PCR) Negative (Neg) RSV (RT-PCR) Negative (Neg) 06/09/21 06/09/21 Range/Units 14:08 14:08 WBC 17.58 H (4.8-10.8) K/uL RBC 3.71 L (4.2-5.4) M/uL Hgb 10.8 L (12.0-16.0) g/dL Hct 33.7 L (37-47) % MCV 90.8 (80-100) fL MCH 29.1 (25-34) pg MCHC 32.0 (32-36) g/dL RDW Std Deviation 47.5 H (36.4-46.3) fL RDW Coeff of Donny 14.4 (11.5-14.5) % Plt Count 328 (130-400) K/uL MPV 9.6 (7.4-10.4) fL Immature Gran % (Auto) 0.3 % Neut % (Auto) 74.4 % Lymph % (Auto) 14.3 % [place] % (Auto) 10.0 % Eos % (Auto) 0.8 % Baso % (Auto) 0.2 % Neut # (Auto) 13.08 H (1.4-6.5) K/uL Lymph # (Auto) 2.52 (1.2-3.4) K/uL [place] # (Auto) 1.76 H (0.11-0.59) K/uL Eos # (Auto) 0.14 (0-0.5) K/uL Baso # (Auto) 0.03 (0-0.2) K/uL Immature Gran # (Auto) 0.05 H (0.00-0.02) K/uL Sodium 141 (136-145) mmol/L Potassium 3.4 L (3.5-5.1) mmol/L Chloride 108 H (98-107) mmol/L Carbon Dioxide 27 (21-32) mmol/L Anion Gap 5.0 (3-11) BUN 17 (7-18) mg/dl Creatinine 0.85 (0.6-1.2) mg/dl Est Cr Clr Drug Dosing 50.4 ml/min Est GFR ( Amer) 72.9 ml/min Est GFR (Non-Af Amer) 62.9 ml/min BUN/Creatinine Ratio 20.4 H (10-20) Glucose 131 H (70-99) mg/dl Lactate (0.4-2.0) mmol/L Calcium 9.0 (8.5-10.1) mg/dl Procalcitonin (0-0.5) ng/ml SARS-CoV-2 (PCR) (Negative) Influenza Type A (PCR) (Neg) Influenza Type B (PCR) (Neg) RSV (RT-PCR) (Neg) Diagnostic Findings Chest x-ray image personally reviewed by me and agree with following report: Chest X-Ray 06/09/21 14:04 XR chest 1V portable CLINICAL HISTORY: recurrent falls TECHNIQUE: Single frontal radiograph of the chest was obtained. Comparison: Comparison is made to chest one view 07/16/2019 FINDINGS: No lines and tubes are seen. Cardiomegaly is noted. Airspace opacities are seen in the right lung and left retrocardiac region. No evidence of pleural effusion or pneumothorax. IMPRESSION: Airspace opacities in the right lung and left retrocardiac region, which may represent atelectasis, pneumonia, and/or aspiration. ACT 112: Negative or not required by law. Electronically signed by: Hayden Hdz M.D. 06/09/2021 2:[address] 06/09/21 14:[address] DOSE: 537.48 mGy.cm HISTORY: recurrent falls TECHNIQUE: Multiaxial CT images of the head were performed without the use of intravenous contrast. Automated exposure control was utilized for this study. A dose lowering technique was utilized adhering to the principles of ALARA. Comparison: Head CT 07/19/2016. Findings: The paranasal sinuses and mastoid air cells are clear. The calvarium and skull base are intact. There is no mass, hematoma, midline shift, acute infarct. White matter hypodensity is nonspecific but suggestive of microvascular ischemic change. The ventricles and sulci demonstrate mild age-related involutional changes. Impression: No acute intracranial abnormality. Atrophy and microvascular ischemic changes. ACT 112: Negative or not required by law. Electronically signed by: Demario Bourne M.D. 06/09/2021 3:25 PM Pelvis X-Ray 06/09/21 14:04 XR pelvis 1-2V routine CLINICAL HISTORY: recurrent falls TECHNIQUE: A single frontal view of the pelvis was obtained. Comparison: Comparison is made to right hip radiographs 06/02/2021 FINDINGS: There is no evidence of acute fracture or dislocation. The bones are anatomically aligned. Degenerative changes are seen in the pelvis and hip joints. The soft tissues are unremarkable. IMPRESSION: No evidence of acute bony injury. ACT 112: Negative or not required by law. Electronically signed by: Hayden Hdz M.D. 06/09/2021 2:35 PM ECG Additional Comments: EKG on 06/09/2021 at 1346 with normal sinus rhythm, rate 87, possible left atrial enlargement, RBBB, unchanged from previous Code Status & VTE Plan Code Status DNR/DNI VTE Prophylaxis Plan VTE Prophylaxis will be ordered: Yes PG Care Time/CCT Total # of Minutes Spent Total Time Spent with Patient: Total time spent is greater than 50% in coordination of care (as documented) at patient's floor/unit and/or counseling patient: Coding Level of Care Code 26293 Initial Inpt Care Lvl 3 Diagnoses Dementia F03.90 Hypertension I10 Hyperlipidemia E78.5 Hypothyroidism E03.9 Osteopenia M85.80 Prediabetes R73.03 Depression F32.9 GERD without esophagitis K21.9 Pneumonia J18.9 Acute metabolic encephalopathy G93.41 Acute respiratory failure with hypoxia J96.01 Sepsis A41.9 Hypokalemia E87.6 Falls W19.XXXA
[2021-06-09] MEDS ORDERED: POTASSIUM CHLORIDE CRTAB 20 MEQ TABCR PO STA (17:38)
[2021-06-09] MEDS: SODIUM CHLORIDE 0.9% 1000ML 1,000 ML IV SCH (18:53)
[2021-06-09] MEDS ORDERED: ACETAMINOPHEN 325 MG TAB PO PRN (19:04)
[2021-06-09] MEDS ORDERED: ONDANSETRON INJ 2 MG/ML 2 ML VIAL IV PRN (19:04)
[2021-06-09] MEDS: ENOXAPARIN INJ 40 MG/0.4 ML SYR SQ SCH (20:10)
[2021-06-09] MEDS: cefTRIAXone SODIUM 2,000 MG in DEXTROSE 5% 50 ML IV SCH (20:10)
[2021-06-09] MEDS: busPIRone 5 MG TAB PO SCH (20:11)
[2021-06-10] MEDS: SODIUM CHLORIDE 0.9% 1000ML 1,000 ML IV SCH (04:05)
[2021-06-10] MEDS: LEVOTHYROXINE SODIUM 88 MCG TABLET PO SCH (05:54)
[2021-06-10 05:57] LABS: Basophils # (auto) 0.02 K/uL (0-0.2); Basophils % (auto) 0.1 %; Eosinophils # (auto) 0.02 K/uL (0-0.5); Eosinophils % (auto) 0.1 %; Hematocrit (blood only) 33.2 % (37-47); Hemoglobin 10.5 g/dL (12.0-16.0); Immature Granulocytes # (auto) 0.05 K/uL (0.00-0.02); Immature Granulocytes % (auto) 0.3 %; Lymphocytes # (auto) 1.71 K/uL (1.2-3.4); Lymphocytes % (auto) 9.7 %; Mean Corpuscular Hgb Conc 31.6 g/dL (32-36); Mean Corpuscular Volume 91.7 fL (80-100); Mean Platelet Volume 10.2 fL (7.4-10.4); Monocytes # (auto) 1.27 K/uL (0.11-0.59); Monocytes % (auto) 7.2 %; Neutrophils # (auto) 14.51 K/uL (1.4-6.5); Neutrophils % (auto) 82.6 %; Platelet Count 345 K/uL (130-400); RDW Coefficient of Variation 14.2 % (11.5-14.5); RDW Standard Deviation 48.3 fL (36.4-46.3); Red Blood Count 3.62 M/uL (4.2-5.4); White Blood Count 17.58 K/uL (4.8-10.8)
[2021-06-10 06:30] LABS: BUN Creatinine Ratio 15.6 (10-20); Calcium 8.5 mg/dl (8.5-10.1); Creatinine Clr Calc Pharmacy 65.9 ml/min; Est GFR (African American) 94.5 ml/min; Est GFR (Non-African American) 81.5 ml/min; Potassium 3.5 mmol/L (3.5-5.1)
[2021-06-10] MEDS: CALCIUM 600MG + VIT D 400 IU TAB PO SCH (08:27)
[2021-06-10] MEDS: busPIRone 5 MG TAB PO SCH ×2 (08:27→20:13)
[2021-06-10] MEDS: amLODIPine BESYLATE 5 MG TAB PO SCH (08:27)
[2021-06-10] MEDS: ASPIRIN 81 MG ECTAB PO SCH (08:27)
[2021-06-10] MEDS: PANTOprazole 40 MG TAB PO SCH (08:28)
[2021-06-10] MEDS: ZINC SULFATE 220 MG CAPSULE PO SCH (08:28)
[2021-06-10] MEDS: DOCUSATE SODIUM 100 MG CAP PO SCH (08:28)
[2021-06-10] MEDS: MULTIVITAMIN TAB PO SCH (08:28)
[2021-06-10] MEDS: SIMVASTATIN 20 MG TAB PO SCH (08:28)
[2021-06-10] MEDS: SERTRALINE HCL 50 MG TABLET PO SCH (08:28)
[2021-06-10] MEDS: CHOLECALCIFEROL 1,000 UNITS 25 MCG TAB PO SCH (08:28)
[2021-06-10] MEDS ORDERED: AZITHROMYCIN 250 MG in DEXTROSE 5% 250 ML IV SCH (09:00)
--- NOTE | 2021-06-10 12:04 | Hospitalist Progress Note ---
Date of Service June 10, 2021 Assessment & Plan (1) Acute metabolic encephalopathy: Plan: Likely secondary to pneumonia and acute respiratory failure with hypoxia Already significantly improved after being placed on oxygen and being given antibiotics - continue to treat pneumonia and hypoxia as below -Supportive care in the setting of her dementia (2) Pneumonia: Plan: With right upper lobe and left retrocardiac alveolar opacities seen on chest x- ray With drenching sweat at home and now with fevers here in the hospital With leukocytosis, encephalopathy, and hypoxia Hypoxia worsening today, now requiring 6 to 8 L oxygen mask but no respiratory distress Leukocytosis persists at 17.5 No cough, chest pain, or shortness of breath, however dementia prohibits thorough history Covid-19, influenza, and RSV all negative Did receive 1 dose of IV Zosyn in the ER Procalcitonin is negative but not completely specific -Continue to treat as community-acquired pneumonia -Continue ceftriaxone 2000 mg IV every 24 hours x7 days and azithromycin 500 mg x 1 followed by 250 mg once daily x5-day total course -blood cultures-no growth to date -Supportive care -Received 2 L normal saline, none further for now -Continue supplemental O2 to keep pulse ox greater than 92% -Mobilize early as possible, add on incentive spirometry -Follow chest x-ray to resolution in 6 to 8 weeks (3) Sepsis: Plan: For this toAs above, with leukocytosis, pneumonia, hypoxia, encephalopathy, and fevers Treating as above 's complaint of urinary frequency Check urinalysis with reflex to culture-of note, antibiotics have already been given prior to collection of sample-sample has still not been collected-ordered for this to be done today (4) Acute respiratory failure with hypoxia: Plan: As above, now worsening (5) Hypokalemia: Plan: Secondary to poor p.o. intake Replaced and resolved Follow BMP (6) Falls: Plan: With a fall, unwitnessed, found down next to her bed the day prior to admission Was able to get her up into the bed with EMS assistance Pelvis x-ray negative for fracture Patient denies any pain PT/OT consults placed, will likely need rehab placement (7) Dementia: Plan: Moderate to severe and progressive Followed with neurology at [facility] No longer medications for this Supportive care (8) Hypertension: Plan: Blood pressures are acceptable Continue home amlodipine (9) Hyperlipidemia: Plan: Continue statin (10) Hypothyroidism: Plan: TSH 3.03 in 01/2021 Continue home levothyroxine (11) Osteopenia: Plan: Continue vitamin D and calcium (12) Prediabetes: Plan: Hemoglobin A1c 6.1% 2017 No medications at home no need for treatment here (13) Depression: Plan: Continue home sertraline, BuSpar (14) GERD without esophagitis: Plan: Continue home pantoprazole Plan: DVT prophylaxis, FRANCIS hose, Lovenox SQ Disposition-admit to medical floor with telemetry, continue on telemetry unit as hypoxia is worsening DNR/DNI as discussed with patient and her at the bedside Admission and Anticipated Discharge Date Admission Date: June 09, 2021 Subjective Patient had a fever this morning but she was unaware. She is now on 6 L oxygen mask when I saw her, but denies any symptoms. She denies chest pain or shortness of breath, no coughing. She is resting comfortably. Denies abdominal pains or diarrhea. As per nursing, no acute events overnight. Telemetry with normal sinus rhythm, normal rates Review of Systems Review of Systems: All systems reviewed & are unremarkable except as noted in HPI & below Physical Exam Constitutional: WD/WN, vitals as above Eyes: + anicteric sclerae Neck: trachea midline, no thyromegaly Respiratory: normal respiratory effort; no cough Auscultation: + crackles ( Bilateral lower and middle lung aaron) and + rhonchi (Right lower lung field); no wheezes Cardiovascular: RRR, no murmur, no edema Chest (Breasts): Chest: normal inspection of chest Gastrointestinal (Abdomen): normal bowel sounds, soft, nontender, no hepatosplenomegaly Musculoskeletal: Extremities: extremities normal to inspection; no cyanosis and no clubbing Skin: no rashes, warm and dry Neurologic: moves all extremities and awake; no focal motor deficits Psychiatric: Orientation: alert, oriented to person and cooperative Lymphatic: no lymphedema Results & Data Results & Data ([facility]) Vital Signs (Past 12 Hours) Vital Signs Temp Pulse Resp BP Pulse Ox 06/10/21 11:29 36.8 C 90 16 135/71 06/10/21 06:00 38 C H 93 H 22 149/58 H 92 06/10/21 03:02 103 H 24 149/73 H 92 Laboratory Results 06/10/21 05:20 06/10/21 05:20 PG Care Time/CCT Total # of Minutes Spent Total Time Spent with Patient: Total time spent is greater than 50% in coordination of care (as documented) at patient's floor/unit and/or counseling patient: Coding Level of Care Code 10799 Subseq Hosp Care Lvl 3 Diagnoses Acute metabolic encephalopathy G93.41 Pneumonia J18.9 Sepsis A41.9 Acute respiratory failure with hypoxia J96.01 Hypokalemia E87.6 Falls W19.XXXA Dementia F03.90 Hypertension I10 Hyperlipidemia E78.5 Hypothyroidism E03.9 Osteopenia M85.80 Prediabetes R73.03 Depression F32.9 GERD without esophagitis K21.9
--- NOTE | 2021-06-10 12:42 | Electrocardiogram Report ---
Test Reason : Blood Pressure : / mmHG Vent. Rate : 087 BPM Atrial Rate : 087 BPM P-R Int : 136 ms QRS Dur : 128 ms QT Int : 414 ms P-R-T Axes : 059 004 031 degrees QTc Int : 498 ms Poor data quality, interpretation may be adversely affected Normal sinus rhythm Possible Left atrial enlargement Right bundle branch block Abnormal ECG When compared with ECG of 16-JUL-2019 20:14, No significant change was found Confirmed by Waldemar Sorto ([id number]) on 06/10/2021 12:42:22 PM Referred By: Olayinka Santiago Confirmed By:Waldemar Sorto
[2021-06-10 16:20] LABS: Appearance Urine Clear (Clear); Bacteria Urine Automated Negative (Negative); Bilirubin Urine Negative (Negative); Blood Urine Negative (Negative); Color Urine Yellow; Glucose Urine UA Negative (Negative); Ketones Urine 1+ (Negative); Leukocyte Esterase Urine Negative (Negative); Nitrite Urine Negative (Negative); Protein Urine Trace (Negative); RBC Urine Automated 0-4 /hpf (0-4); Specific Gravity Urine 1.022 (1.000-1.030); Urobilinogen Urine Negative (Negative); WBC Urine Automated 0 /hpf (0-5)
--- NOTE | 2021-06-10 18:43 | XRay Report ---
SINGLE VIEW CHEST CLINICAL HISTORY: Hypoxia. FINDINGS: An AP, portable, upright chest radiograph is compared to study dated 06/09/2021. The cardiome diastinal silhouette is unremarkable. Extensive/multifocal airspace consolidation has significantly w orsened as compared to yesterday. No large pleural effusion or pneumothorax is seen. The skeletal str uctures are osteopenic. The bony thorax is grossly intact. IMPRESSION: Extensive/multifocal airspace consolidation has significantly worsened as compared to yes terday. ACT 112: Negative or not required by law. Electronically signed by: Macario Daly M.D. 06/10/2021 6:41 PM
[2021-06-10] MEDS: cefTRIAXone SODIUM 2,000 MG in DEXTROSE 5% 50 ML IV SCH (19:42)
[2021-06-10] MEDS: ENOXAPARIN INJ 40 MG/0.4 ML SYR SQ SCH (19:50)
[2021-06-10] MEDS ORDERED: PIPERACILL/TAZOBAC CONSULT ACTIVE PRN (19:56)
[2021-06-10] MEDS ORDERED: VANCOMYCIN CONSULT ACTIVE PRN (19:56)
[2021-06-10] MEDS ORDERED: PIPERACILLIN/TAZOBACTAM 3.375 GM in DEXTROSE 5% 100 ML IV SCH (20:00)
[2021-06-10] MEDS ORDERED: VANCOMYCIN HCL 2,000 MG in SODIUM CHLORIDE 0.9% 500 ML IV ONE (20:15)
[2021-06-10] MEDS ORDERED: PIPERACILLIN/TAZOBACTAM 3.375 GM in DEXTROSE 5% 100 ML IV ONE (20:30)
[2021-06-10 22:20] LABS: Adenovirus PCR Not Detected (NotDetected); Bordetella parapertussis PCR Not Detected (NotDetected); Bordetella pertussis PCR Not Detected (NotDetected); Chlamydia pneumoniae PCR Not Detected (NotDetected); Coronavirus 229E PCR Not Detected (NotDetected); Coronavirus CoV-2 (COVID19)PCR Not Detected (NotDetected); Coronavirus HKU1 PCR Not Detected (NotDetected); Coronavirus NL63 PCR Not Detected (NotDetected); Coronavirus OC43PCR Not Detected (NotDetected); Human Metapneumovirus PCR Not Detected (NotDetected); Influenza A PCR Not Detected (NotDetected); Influenza B PCR Not Detected (NotDetected); Mycoplasma pneumoniae PCR Not Detected (NotDetected); Parainfluenza Virus 1 PCR Not Detected (NotDetected); Parainfluenza Virus 2 PCR Not Detected (NotDetected); Parainfluenza Virus 3 PCR Not Detected (NotDetected); Parainfluenza Virus 4 PCR Not Detected (NotDetected); Respiratory Syncytial VirusPCR Not Detected (NotDetected); Rhinovirus/Enterovirus PCR Not Detected (NotDetected)
[2021-06-11] MEDS: PIPERACILLIN/TAZOBACTAM 3.375 GM in DEXTROSE 5% 100 ML IV SCH ×3 (02:30→18:13)
[2021-06-11] MEDS: LEVOTHYROXINE SODIUM 88 MCG TABLET PO SCH (06:16)
[2021-06-11 08:31] LABS: Basophils # (auto) 0.02 K/uL (0-0.2); Basophils % (auto) 0.1 %; Eosinophils # (auto) 0.03 K/uL (0-0.5); Eosinophils % (auto) 0.1 %; Hematocrit (blood only) 31.9 % (37-47); Hemoglobin 10.2 g/dL (12.0-16.0); Immature Granulocytes # (auto) 0.08 K/uL (0.00-0.02); Immature Granulocytes % (auto) 0.4 %; Lymphocytes # (auto) 1.25 K/uL (1.2-3.4); Lymphocytes % (auto) 6.2 %; Mean Corpuscular Volume 90.6 fL (80-100); Mean Platelet Volume 9.5 fL (7.4-10.4); Monocytes # (auto) 1.26 K/uL (0.11-0.59); Monocytes % (auto) 6.2 %; Neutrophils # (auto) 17.54 K/uL (1.4-6.5); Platelet Count 333 K/uL (130-400); RDW Coefficient of Variation 14.3 % (11.5-14.5); RDW Standard Deviation 47.5 fL (36.4-46.3); Red Blood Count 3.52 M/uL (4.2-5.4); White Blood Count 20.18 K/uL (4.8-10.8)
[2021-06-11 09:00] LABS: Albumin Level 2.2 gm/dl (3.4-5.0); BUN Creatinine Ratio 16.3 (10-20); Calcium 8.6 mg/dl (8.5-10.1); Creatinine Clr Calc Pharmacy 65.6 ml/min; Est GFR (Non-African American) 81.1 ml/min; Potassium 3.3 mmol/L (3.5-5.1)
[2021-06-11 09:07] LABS: Albumin Globulin Ratio 0.5 (0.9-2); C Reactive Protein 26.5 mg/dl (0-0.29); Globulin 4.6 gm/dl (2.5-4.0); Total Protein 6.8 gm/dl (6.4-8.2)
[2021-06-11 09:15] LABS: Bilirubin,Total 0.8 mg/dl (0.2-1)
[2021-06-11] MEDS: levoFLOXacin/D5W 750 MG/150 ML BAG IV SCH (09:40)
[2021-06-11] MEDS ORDERED: VANCOMYCIN HCL 1,000 MG in SODIUM CHLORIDE 0.9% 250 ML IV SCH (10:00)
[2021-06-11] MEDS: CHOLECALCIFEROL 1,000 UNITS 25 MCG TAB PO SCH (10:05)
[2021-06-11] MEDS: DOCUSATE SODIUM 100 MG CAP PO SCH (10:05)
[2021-06-11] MEDS: busPIRone 5 MG TAB PO SCH ×2 (10:05→22:16)
[2021-06-11] MEDS: CALCIUM 600MG + VIT D 400 IU TAB PO SCH (10:05)
[2021-06-11] MEDS: amLODIPine BESYLATE 5 MG TAB PO SCH (10:05)
[2021-06-11] MEDS: MULTIVITAMIN TAB PO SCH (10:05)
[2021-06-11] MEDS: ASPIRIN 81 MG ECTAB PO SCH (10:05)
[2021-06-11] MEDS: SERTRALINE HCL 50 MG TABLET PO SCH (10:06)
[2021-06-11] MEDS: SIMVASTATIN 20 MG TAB PO SCH (10:06)
[2021-06-11] MEDS: ZINC SULFATE 220 MG CAPSULE PO SCH (10:06)
[2021-06-11] MEDS: PANTOprazole 40 MG TAB PO SCH (10:06)
[2021-06-11] MEDS ORDERED: POTASSIUM CHLORIDE CRTAB 20 MEQ TABCR PO STA (10:25)
--- NOTE | 2021-06-11 16:30 | CT Scan Report ---
CT SCAN OF THE CHEST WITHOUT IV CONTRAST CLINICAL HISTORY: Pneumonia. COMPARISON STUDY: Chest x-ray dated 06/10/2021. TECHNIQUE: CT scan of the thorax was performed from the thoracic inlet to the upper abdomen. Images are reviewed in the axial, sagittal, and coronal planes. IV contrast was not administered for this ex amination as per the referring clinician. A dose lowering technique was utilized adhering to the adán nciples of BECK. The Examination is severely degraded by motion artifact, as well as streak artifact from the arms which could not be elevated above the chest. CT DOSE: 504.45 mGy.cm FINDINGS: Thyroid: Imaged portions of the thyroid gland are normal in size and attenuation. Thoracic aorta: There is atherosclerotic calcification of the thoracic aorta, which is normal in saima adalgisa and demonstrates standard 3-vessel arch anatomy. Heart: The heart is mildly enlarged and without pericardial effusion. The coronary arteries are dense ly calcified. Lungs and pleural spaces: Evaluation of the lung parenchyma is significantly degraded by motion artif act. There is a small right pleural effusion. Extensive multifocal airspace consolidation is seen thr oughout both lungs. The trachea and central airways are clear. No pneumothorax is seen. Mediastinum: There are numerous mildly enlarged mediastinal lymph nodes which are likely reactive. Vandana: Not well assessed without IV contrast. Axillae: There is no axillary lymphadenopathy. Upper abdomen: There is a small hiatal hernia. Partially visualized upper abdominal viscera is otherw ise grossly unremarkable. Skeletal structures: The skeletal structures are osteopenic. No lytic or blastic bony lesions are see n. Degenerative change is noted in the shoulders and thoracic spine. IMPRESSION: 1. Severely streak and motion degraded examination. 2. Extensive/diffuse multifocal airspace consolidation is typical for pneumonia. Radiographic follow- up to resolution is recommended. 3. Small right pleural effusion. 4. Mild cardiomegaly. 5. Additional findings as above. ACT 112: Negative or not required by law. Electronically signed by: Macario Daly M.D. 06/11/2021 4:29 PM
--- NOTE | 2021-06-11 17:55 | Hospitalist Progress Note ---
Date of Service June 11, 2021 Assessment & Plan (1) Acute metabolic encephalopathy: Plan: Likely secondary to pneumonia and acute respiratory failure with hypoxia Already significantly improved after being placed on oxygen and being given antibiotics in the first few hours of admission Patient's reports that she was extremely lethargic the morning of admission. Her baseline given her moderate to severe dementia is that she has no short-term memory, but can carry on very simple conversations - continue to treat pneumonia and hypoxia as below -Supportive care in the setting of her dementia (2) Pneumonia: Plan: With right upper lobe and left retrocardiac alveolar opacities seen on chest x- ray initially With drenching sweat at home and then developed fevers here in the hospital shor tly after admission With leukocytosis, encephalopathy, and hypoxia Hypoxia rapidly worsened within the first 36 hours of admission-was requiring 6 to 8 L oxygen mask on hospital day #2, and now on high flow nasal cannula 40 L and 85% FiO2 on 06/11 She has absolutely no respiratory distress, is not coughing Leukocytosis worsened again today to 20 before any corticosteroids were started Covid-19, influenza, and RSV all negative on admission Repeat bio fire on 06/10 all negative Procalcitonin is negative, MRSA swab of the nose is negative proBNP is normal Blood cultures-no growth to date Legionella antigen collected and sent-pending Chest CT without contrast performed on 06/11 shows extensive/diffuse multifocal airspace consolidation consistent with pneumonia, small right pleural effusion Did receive 1 dose of IV Zosyn in the ER and then was started on ceftriaxone and azithromycin initially When condition worsened on 06/10, antibiotics broadened back to IV Zosyn and vancomycin in addition to azithromycin, however MRSA swab negative and vancomycin discontinued For coverage in case of Legionella-start levofloxacin and will discontinue azithromycin Appreciate pulmonology consultation-thinks this is likely viral pneumonia -Start dexamethasone 6 mg IV once daily -Continue supplemental O2 to keep pulse ox greater than 92%-on high flow nasal cannula for now, but patient's think she would be amenable to trial of CPAP if needed. She would not want to be intubated -Continue incentive spirometry, although with patient's dementia, she needs to be encouraged to do this -Continue IV Zosyn and levofloxacin (QTC 488 on ECG) to for gram-negative pneumonia, atypicals, and Legionella I feel that her condition strongly emulates COVID-19 pneumonia despite having 2 negative COVID test so far. I have asked the supervising nurse to move the patient to a private room just in case these COVID tests are falsely negative Recommend repeating COVID-19 test again on 06/13 -If respiratory status decompensates and fails even a trial of CPAP, insists that she be transitioned to comfort measures only as he does not want her to suffer (3) Sepsis: Plan: As above, with leukocytosis, pneumonia, hypoxia, encephalopathy, and fevers Urinalysis negative for infection but was collected 24 hours after antibiotics started Treating as above (4) Acute respiratory failure with hypoxia: Plan: As above, now worsening (5) Hypokalemia: Plan: Secondary to poor p.o. intake Replaced Follow BMP, magnesium (6) Falls: Plan: With a fall, unwitnessed, found down next to her bed the day prior to admission Was able to get her up into the bed with EMS assistance Pelvis x-ray negative for fracture Patient denies any pain PT/OT consults placed, will likely need rehab placement (7) Dementia: Plan: Moderate to severe and progressive Followed with neurology at [facility] No longer medications for this Supportive care (8) Hypertension: Plan: Blood pressures are acceptable Continue home amlodipine (9) Hyperlipidemia: Plan: Continue statin (10) Hypothyroidism: Plan: TSH 3.03 in 01/2021 Continue home levothyroxine (11) Osteopenia: Plan: Continue vitamin D and calcium (12) Prediabetes: Plan: Hemoglobin A1c 6.1% 2017 No medications at home no need for treatment here, however now starting on corticosteroids-monitor for hyperglycemia -May need to start Accu-Cheks on 06/12 (13) Depression: Plan: Continue home sertraline, BuSpar (14) GERD without esophagitis: Plan: Continue home pantoprazole (15) Anemia: Plan: Hemoglobin low at 10.2, normocytic, stable from previous Follow CBC Plan: DVT prophylaxis, FRANCIS hose, Lovenox SQ but will increase to 40 mg twice daily Disposition-continued stay on telemetry as hypoxia/respiratory failure is worsening DNR/DNI as discussed with patient and her . If respiratory status continues to decline and fails high flow nasal cannula or trial of BiPAP, request that she be transition to comfort measures only Admission and Anticipated Discharge Date Admission Date: June 09, 2021 Subjective Patient remains on high flow nasal cannula today. She was on 35 L 100% FiO2 this morning, but by the afternoon was at 40 L and 85% FiO2. She continues to deny any complaints and does not appear in any distress at all. She denies cough or chest pain, denies shortness of breath. She is pleasantly confused. When I tell her that she has a very bad pneumonia, she states "Will that will take care of itself." Telemetry with normal sinus rhythm with rates in the 90s to 100s I discussed her care with her on the phone and he understands that her prognosis is guarded. He wants to be sure that we know that if she continues to worsen, he certainly would want to transition to comfort measures only and does not want her to have any suffering. She definitely does not want to go on a ventilator as per the 's recommendations. He does think should be amenable to a trial of CPAP. Review of Systems Review of Systems: All systems reviewed & are unremarkable except as noted in HPI & below Denies abdominal pains or diarrhea, denies nausea or vomiting. Physical Exam Constitutional: WD/WN, vitals as above Eyes: + anicteric sclerae ENMT: external ear and nose normal, oropharynx normal Neck: trachea midline, no thyromegaly Respiratory: normal respiratory effort; no cough and not tachypneic Auscultation: + crackles (Bilateral lower and middle lung aaron) and + rhonchi (Right lower lung field); no wheezes Cardiovascular: RRR, no murmur, no edema Chest (Breasts): Chest: normal inspection of chest Gastrointestinal (Abdomen): normal bowel sounds, soft, nontender, no hepatosplenomegaly Musculoskeletal: Extremities: extremities normal to inspection; no cyanosis and no clubbing Skin: no rashes, warm and dry Neurologic: moves all extremities and awake; no focal motor deficits Psychiatric: Orientation: alert, oriented to person and cooperative Lymphatic: no lymphedema Results & Data Results & Data ([facility]) Vital Signs (Past 12 Hours) Vital Signs Temp Pulse Pulse Resp BP Pulse Ox 06/11/21 17:12 87 20 90 06/11/21 16:39 84 22 92 06/11/21 16:17 36.6 C 96 H 20 150/73 H 91 06/11/21 15:58 96 H 06/11/21 15:42 98 H 18 90 06/11/21 10:55 94 H 20 91 06/11/21 07:46 100 H 20 96 06/11/21 07:31 98 H 06/11/21 07:11 37.1 C 95 H 18 149/82 H 91 Laboratory Results 06/11/21 06/11/21 06/11/21 Range/Units 15:00 08:17 08:17 WBC (4.8-10.8) K/uL RBC (4.2-5.4) M/uL Hgb (12.0-16.0) g/dL Hct (37-47) % MCV (80-100) fL MCH (25-34) pg MCHC (32-36) g/dL RDW Std Deviation (36.4-46.3) fL RDW Coeff of Donny (11.5-14.5) % Plt Count (130-400) K/uL MPV (7.4-10.4) fL Immature Gran % (Auto) % Neut % (Auto) % Lymph % (Auto) % Crawford % (Auto) % Eos % (Auto) % Baso % (Auto) % Neut # (Auto) (1.4-6.5) K/uL Lymph # (Auto) (1.2-3.4) K/uL Crawford # (Auto) (0.11-0.59) K/uL Eos # (Auto) (0-0.5) K/uL Baso # (Auto) (0-0.2) K/uL Immature Gran # (Auto) (0.00-0.02) K/uL Sodium (136-145) mmol/L Potassium (3.5-5.1) mmol/L Chloride (98-107) mmol/L Carbon Dioxide (21-32) mmol/L Anion Gap (3-11) BUN (7-18) mg/dl Creatinine (0.6-1.2) mg/dl Est Cr Clr Drug Dosing ml/min Est GFR ( Amer) ml/min Est GFR (Non-Af Amer) ml/min BUN/Creatinine Ratio (10-20) Glucose (70-99) mg/dl Calcium (8.5-10.1) mg/dl Magnesium (1.8-2.4) mg/dl Total Bilirubin (0.2-1) mg/dl AST (15-37) U/L ALT (12-78) Alkaline Phosphatase (45-117) U/L C-Reactive Protein (0-0.29) mg/dl NT-Pro-B Natriuret Pep Cancelled (0-1800) pg/ml Total Protein (6.4-8.2) gm/dl Albumin (3.4-5.0) gm/dl Globulin (2.5-4.0) gm/dl Albumin/Globulin Ratio (0.9-2) Procalcitonin 0.25 (0-0.5) ng/ml Urine Legionella Ag Pending 06/11/21 06/11/21 Range/Units 08:17 08:17 WBC 20.18 H (4.8-10.8) K/uL RBC 3.52 L (4.2-5.4) M/uL Hgb 10.2 L (12.0-16.0) g/dL Hct 31.9 L (37-47) % MCV 90.6 (80-100) fL MCH 29.0 (25-34) pg MCHC 32.0 (32-36) g/dL RDW Std Deviation 47.5 H (36.4-46.3) fL RDW Coeff of Donny 14.3 (11.5-14.5) % Plt Count 333 (130-400) K/uL MPV 9.5 (7.4-10.4) fL Immature Gran % (Auto) 0.4 % Neut % (Auto) 87.0 % Lymph % (Auto) 6.2 % Crawford % (Auto) 6.2 % Eos % (Auto) 0.1 % Baso % (Auto) 0.1 % Neut # (Auto) 17.54 H (1.4-6.5) K/uL Lymph # (Auto) 1.25 (1.2-3.4) K/uL Crawford # (Auto) 1.26 H (0.11-0.59) K/uL Eos # (Auto) 0.03 (0-0.5) K/uL Baso # (Auto) 0.02 (0-0.2) K/uL Immature Gran # (Auto) 0.08 H (0.00-0.02) K/uL Sodium 138 (136-145) mmol/L Potassium 3.3 L (3.5-5.1) mmol/L Chloride 107 (98-107) mmol/L Carbon Dioxide 22 (21-32) mmol/L Anion Gap 9.0 (3-11) BUN 11 (7-18) mg/dl Creatinine 0.66 (0.6-1.2) mg/dl Est Cr Clr Drug Dosing 65.6 ml/min Est GFR ( Amer) 94.0 ml/min Est GFR (Non-Af Amer) 81.1 ml/min BUN/Creatinine Ratio 16.3 (10-20) Glucose 129 H (70-99) mg/dl Calcium 8.6 (8.5-10.1) mg/dl Magnesium 2.0 (1.8-2.4) mg/dl Total Bilirubin 0.8 (0.2-1) mg/dl AST 28 (15-37) U/L ALT 25 (12-78) Alkaline Phosphatase 113 (45-117) U/L C-Reactive Protein 26.50 H (0-0.29) mg/dl NT-Pro-B Natriuret Pep 432 (0-1800) pg/ml Total Protein 6.8 (6.4-8.2) gm/dl Albumin 2.2 L (3.4-5.0) gm/dl Globulin 4.6 H (2.5-4.0) gm/dl Albumin/Globulin Ratio 0.5 L (0.9-2) Procalcitonin (0-0.5) ng/ml Urine Legionella Ag PG Care Time/CCT Total # of Minutes Spent Total Time Spent with Patient: Total time spent is greater than 50% in coordination of care (as documented) at patient's floor/unit and/or counseling patient: Coding Level of Care Code 91927 Subseq Hosp Care Lvl 3 Diagnoses Acute metabolic encephalopathy G93.41 Pneumonia J18.9 Sepsis A41.9 Acute respiratory failure with hypoxia J96.01 Hypokalemia E87.6 Falls W19.XXXA Dementia F03.90 Hypertension I10 Hyperlipidemia E78.5 Hypothyroidism E03.9 Osteopenia M85.80 Prediabetes R73.03 Depression F32.9 GERD without esophagitis K21.9 Anemia D64.9
--- NOTE | 2021-06-11 19:23 | Pulmonary Consultation ---
Date of Consultation June 11, 2021 Assessment & Plan (1) Hypoxia: (2) Multifocal pneumonia: (3) Acute respiratory failure with hypoxia: CT chest June 11, 2021 personally reviewed: Diffuse groundglass and patchy opacities appreciated bilaterally more on the right upper and lower lobe Minimal right-sided pleural effusion Insignificant mediastinal lymphadenopathy --Acute hypoxic respiratory failure Secondary to multilobar pneumonia Etiology of the pneumonia is not clear right now Viral pneumonia higher in differential COVID-19 PCR negative x2 Bio fire negative Influenza A/B negative RSV negative Nasal MRSA negative Plan: Patient CT chest shows diffuse bilateral opacities Goes out with viral pneumonia Patient has been COVID-19 negative x2 She is on antibiotics for a bacterial pneumonia along with atypical coverage I will add dexamethasone 6 mg to be given for 5 days Would recommend to keep the patient in negative balance Incentive spirometry will be beneficial to the patient BiPAP would help but again with underlying dementia I do not think she will like it. Would recommend continuing with high flow Bronchoscopy would not be recommended and the patient was on such high flow as she will get intubated. Case was discussed with Dr. Akbar Please note the above document was generated using voice recognition software. It may contain grammatical, syntax or spelling errors.Any formal questions or concerns about the content, text or information contained within the body of this dictation should be directly addressed to the provider for clarification. History of Present Illness Attending Physician: Yue Akbar MD History of Present Illness 85-year-old female presents to the hospital because of increased weakness and difficulty taking care Past medical history: Hypothyroidism, hypertension, diabetes, dementia Patient is a very poor historian, history obtained from previous chart as well as Dr. Akbar At the time of examination patient was not in any respiratory distress. She was saturating 89-90% on 85% high flow, 35 L She denied any chest pain she denied any shortness of breath she denied any headache she denied any nausea or vomiting. She is having her food on a regular basis. Social history: Patient denies any lifetime history of smoking Allergies Allergy/AdvReac Type Severity Reaction Status Date / Time bacitracin Allergy Unknown RASH Verified 06/09/21 14:19 donepezil Allergy Unknown UNKNOWN Verified 06/09/21 14:19 neomycin Allergy Unknown RASH Verified 06/09/21 14:19 polymyxin B Allergy Unknown RASH Verified 01/04/22 14:19 rivastigmine [From Exelon] Allergy Unknown Verified 06/09/21 14:19 hydroxyzine AdvReac Unknown THROW UP Verified 06/09/21 14:19 Home Medications Medication Instructions Recorded Confirmed Type aspirin 81 mg chewable tablet 1 tab PO DAILY tab 11/27/18 06/09/21 History calcium carbonate 500 mg-vitamin 1 tab PO DAILY tab 11/27/18 06/09/21 History D3 5 mcg (200 unit) tablet cholecalciferol (vitamin D3) 50 2,000 units PO DAILY 11/27/18 06/09/21 History mcg (2,000 unit) tablet docusate sodium 100 mg capsule 100 mg PO DAILY #60 cap 11/27/18 06/09/21 History multivitamin (Daily Multi-Vitamin) 1 tab PO DAILY 11/27/18 06/09/21 History kdyjfwzyzsmn-qfcargdl-oymffc 1 tab PO DAILY 11/27/18 06/09/21 History tablet (Vision Plus Lutein) zinc 50 mg tablet 50 mg PO DAILY 03/26/20 06/09/21 History cholecalciferol (vitamin D3) 1,250 50,000 unit PO .WEEK #12 cap 04/07/20 06/09/21 Rx mcg (50,000 unit) capsule levothyroxine 88 mcg capsule 88 mcg PO DAILY #90 cap 01/14/21 06/09/21 Rx sertraline 100 mg tablet 150 mg PO DAILY #135 tab 05/12/21 06/09/21 Rx buspirone 5 mg tablet 5 mg PO BID #180 tab 05/13/21 06/09/21 Rx amlodipine 5 mg tablet 5 mg PO DAILY #90 tab 06/08/21 06/09/21 Rx pantoprazole 40 mg tablet,delayed 40 mg PO QAM #90 tab 06/08/21 06/09/21 Rx release simvastatin 20 mg tablet 20 mg PO DAILY #90 tab 06/08/21 06/09/21 Rx Patient History Medical History (Updated 06/12/21 @ 16:24 by Ines Boudreaux MD) Atypical chest pain Constipation Dementia Depression Elevated troponin Epigastric pain Fatigue Generalized osteoarthritis of multiple sites GERD without esophagitis Heart palpitations Hyperlipidemia Hypertension Hypokalemia Hypothyroidism Osteopenia Precordial chest pain Prediabetes Surgical History History of appendectomy History of cataract surgery History of cholecystectomy History of dilation and curettage History of hysterectomy History of tonsillectomy and adenoidectomy Family History Father Acute myocardial infarction Denies family history of Ovarian cancer Prostate cancer Breast cancer Colorectal cancer Social History Smoking Status: Unknown if ever smoked Second Hand Exposure: No; Preferred Language: Vietnamese Communication Ability: Impaired Visual Impairment: No Limitations Hearing Ability: Normal Information Systems Security Developer Required: No Beliefs That Will Affect Care: None marital status: Current Living Situation: Spouse Feels Safe at Home: Yes Childhood Exposure to Second-Hand Smoke: No Dental Care, Regularly: Yes Physical Activity Frequency: Daily Seatbelt Use: always Sunscreen Use: Yes Assistive Devices: Glasses, Oxygen - Continuous and Walker Review of Systems Review of Systems: Unobtainable due to cognitive status Physical Exam Physical Exam: Constitutional: No acute distress HEENT: EOMI, PERRLA Respiratory system: Decreased air entry bilaterally, no wheeze, no rhonchi, positive crackles bilaterally more on the right side CVS: S1-S2 positive, no murmurs or gallops Abdomen: Soft, nontender, nondistended, positive bowel sounds x4 Extremities: +2 pulses bilaterally radialis/ dorsalis pedis, no cyanosis, +1 pitting edema bilateral lower extremity Neuro: Awake alert oriented to self Psych: Normal mood and affect G/U: No Jones Skin: no rashes, warm and dry Lymphatic: no cervical or axillary lymphadenopathy Results & Data Results & Data ([facility]) Vital Signs (Past 12 Hours) Vital Signs Temp Pulse Pulse Resp BP Pulse Ox 06/11/21 19:18 36.8 C 94 H 18 148/76 H 92 06/11/21 17:12 87 20 90 06/11/21 16:39 84 22 92 06/11/21 16:17 36.6 C 96 H 20 150/73 H 91 06/11/21 15:58 96 H 06/11/21 15:42 98 H 18 90 06/11/21 10:55 94 H 20 91 06/11/21 07:46 100 H 20 96 06/11/21 07:31 98 H Laboratory Results 06/11/21 08:17 06/11/21 08:17 PG Care Time/CCT Total # of Minutes Spent Total Time Spent with Patient: Total time spent is greater than 50% in coordination of care (as documented) at patient's floor/unit and/or counseling patient: Coding Level of Care Code 55789 Initial Inpt Care Lvl 3 Diagnoses Hypoxia R09.02 Multifocal pneumonia J18.9 Acute respiratory failure with hypoxia J96.01
[2021-06-11] MEDS ORDERED: dexAMETHasone 6 MG in SYRINGE 0 ML IV SCH (19:30)
[2021-06-11] MEDS: ENOXAPARIN INJ 40 MG/0.4 ML SYR SQ SCH (22:15)
[2021-06-12] MEDS: PIPERACILLIN/TAZOBACTAM 3.375 GM in DEXTROSE 5% 100 ML IV SCH ×3 (02:07→17:57)
--- NOTE | 2021-06-12 06:18 | Electrocardiogram Report ---
Test Reason : Blood Pressure : / mmHG Vent. Rate : 090 BPM Atrial Rate : 090 BPM P-R Int : 126 ms QRS Dur : 130 ms QT Int : 396 ms P-R-T Axes : 051 013 022 degrees QTc Int : 484 ms Sinus rhythm with Premature atrial complexes Right bundle branch block Abnormal ECG When compared with ECG of 09-JUN-2021 13:46, Premature atrial complexes are now Present Confirmed by Oswaldo Ferguson ([id number]) on 06/12/2021 6:17:52 AM Referred By: Olayinka Santiago Confirmed By:Oswaldo Ferguson
[2021-06-12] MEDS: LEVOTHYROXINE SODIUM 88 MCG TABLET PO SCH (06:21)
[2021-06-12] MEDS: levoFLOXacin/D5W 750 MG/150 ML BAG IV SCH (08:23)
[2021-06-12] MEDS: PANTOprazole 40 MG TAB PO SCH (08:35)
[2021-06-12] MEDS: busPIRone 5 MG TAB PO SCH ×2 (08:35→21:08)
[2021-06-12] MEDS: ZINC SULFATE 220 MG CAPSULE PO SCH (08:35)
[2021-06-12] MEDS: ASPIRIN 81 MG ECTAB PO SCH (08:35)
[2021-06-12] MEDS: MULTIVITAMIN TAB PO SCH (08:35)
[2021-06-12] MEDS: CHOLECALCIFEROL 1,000 UNITS 25 MCG TAB PO SCH (08:35)
[2021-06-12] MEDS: SIMVASTATIN 20 MG TAB PO SCH (08:35)
[2021-06-12] MEDS: SERTRALINE HCL 50 MG TABLET PO SCH (08:35)
[2021-06-12] MEDS: CALCIUM 600MG + VIT D 400 IU TAB PO SCH (08:35)
[2021-06-12] MEDS: amLODIPine BESYLATE 5 MG TAB PO SCH (08:35)
[2021-06-12 08:42] LABS: Basophils # (auto) 0.01 K/uL (0-0.2); Eosinophils # (auto) 0.01 K/uL (0-0.5); Hematocrit (blood only) 32.6 % (37-47); Hemoglobin 10.5 g/dL (12.0-16.0); Immature Granulocytes # (auto) 0.05 K/uL (0.00-0.02); Immature Granulocytes % (auto) 0.2 %; Lymphocytes # (auto) 0.96 K/uL (1.2-3.4); Lymphocytes % (auto) 4.8 %; Mean Corpuscular Hgb Conc 32.2 g/dL (32-36); Mean Corpuscular Volume 90.1 fL (80-100); Monocytes # (auto) 0.63 K/uL (0.11-0.59); Monocytes % (auto) 3.1 %; Neutrophils # (auto) 18.47 K/uL (1.4-6.5); Neutrophils % (auto) 91.9 %; Platelet Count 357 K/uL (130-400); RDW Coefficient of Variation 14.4 % (11.5-14.5); RDW Standard Deviation 47.6 fL (36.4-46.3); Red Blood Count 3.62 M/uL (4.2-5.4); White Blood Count 20.13 K/uL (4.8-10.8)
[2021-06-12] MEDS: ENOXAPARIN INJ 40 MG/0.4 ML SYR SQ SCH ×2 (08:43→21:08)
[2021-06-12] MEDS: DOCUSATE SODIUM 100 MG CAP PO SCH (08:43)
[2021-06-12] MEDS ORDERED: FUROSEMIDE 40 MG/4 ML VIAL IV ONE (08:57)
[2021-06-12] MEDS ORDERED: dexAMETHasone 6 MG in SYRINGE 0 ML IV SCH (09:00)
[2021-06-12 09:08] LABS: BUN Creatinine Ratio 26.9 (10-20); Calcium 8.9 mg/dl (8.5-10.1); Creatinine Clr Calc Pharmacy 67.9 ml/min; Est GFR (African American) 95.5 ml/min; Est GFR (Non-African American) 82.4 ml/min; Magnesium 2.3 mg/dl (1.8-2.4); Potassium 3.5 mmol/L (3.5-5.1)
[2021-06-12 09:15] LABS: Albumin Globulin Ratio 0.4 (0.9-2); C Reactive Protein 32.4 mg/dl (0-0.29); Globulin 4.8 gm/dl (2.5-4.0); Phosphorus 3.5 mg/dl (2.5-4.9); Total Protein 6.8 gm/dl (6.4-8.2)
[2021-06-12 09:29] LABS: Bilirubin,Total 0.6 mg/dl (0.2-1)
[2021-06-12] MEDS ORDERED: FUROSEMIDE INJ 20 MG/2 ML VIAL IV ONE (10:31)
--- NOTE | 2021-06-12 16:29 | Pulmonology Progress Note ---
Date of Service June 12, 2021 Assessment & Plan (1) Hypoxia: (2) Multifocal pneumonia: (3) Acute respiratory failure with hypoxia: Plan: CT chest June 11, 2021 personally reviewed: Diffuse groundglass and patchy opacities appreciated bilaterally more on the right upper and lower lobe Minimal right-sided pleural effusion Insignificant mediastinal lymphadenopathy --Acute hypoxic respiratory failure Secondary to multilobar pneumonia Etiology of the pneumonia is not clear right now Viral pneumonia higher in differential COVID-19 PCR negative x2 Bio fire negative Influenza A/B negative RSV negative Nasal MRSA negative [employer] is a possibility as well. Dexamethasone has been started which might help with it. Patient is not immunosuppressed. Incentive spirometry will be beneficial for the patient but unfortunately with underlying dementia I doubt that she will be able to use it Bronchoscopy would not be recommended and the patient was on such high flow as she will get intubated. Plan: We will give 20 mg of Lasix today. Would like the patient to be negative balance Astonishingly patient is not in any respiratory distress. Continue O2 supplementation to see if he can turn around. Agree with doing 1 more Covid test tomorrow. Overall patient's condition is critical. I do not think she is in any respiratory distress/suffering right now. But if there is any worsening in her condition then I agree moving towards comfort measures. Please note the above document was generated using voice recognition software. It may contain grammatical, syntax or spelling errors.Any formal questions or concerns about the content, text or information contained within the body of this dictation should be directly addressed to the provider for clarification. Admission and Anticipated Discharge Date Admission Date: June 09, 2021 Subjective Patient seen and examined at bedside. No acute distress, no adverse events overnight At the time of examination patient was saturating 89 to 90% on 90% FiO2, 40 L high flow She was not in any respiratory distress. She denied any headache, no chest pain, she even denies shortness of breath. Review of Systems Review of Systems: All systems reviewed & are unremarkable except as noted in Subjective Physical Exam Physical Exam: Constitutional: No acute distress HEENT: EOMI, PERRLA Respiratory system: Decreased air entry bilaterally, no wheeze, no rhonchi, positive crackles bilaterally more on the right side CVS: S1-S2 positive, no murmurs or gallops Abdomen: Soft, nontender, nondistended, positive bowel sounds x4 Extremities: +2 pulses bilaterally radialis/ dorsalis pedis, no cyanosis, +1 pitting edema bilateral lower extremity Neuro: Awake alert oriented to self Psych: Normal mood and affect G/U: No Jones Skin: no rashes, warm and dry Lymphatic: no cervical or axillary lymphadenopathy Results & Data Results & Data ([facility]) Vital Signs (Past 12 Hours) Vital Signs Temp Pulse Pulse Pulse Resp BP BP 06/12/21 15:17 88 18 06/12/21 14:17 06/12/21 11:29 36.6 C 79 18 107/64 06/12/21 10:52 81 18 06/12/21 10:41 113/70 06/12/21 10:22 06/12/21 08:00 36.6 C 91 H 18 131/67 06/12/21 07:23 20 06/12/21 07:07 90 Pulse Ox Pulse Ox Pulse Ox Pulse Ox 06/12/21 15:17 96 06/12/21 14:17 45 L 91 75 L 06/12/21 11:29 90 06/12/21 10:52 92 06/12/21 10:41 06/12/21 10:22 93 06/12/21 08:00 90 06/12/21 07:23 90 06/12/21 07:07 Laboratory Results 06/12/21 07:57 06/12/21 07:57 PG Care Time/CCT Total # of Minutes Spent Total Time Spent with Patient: Total time spent is greater than 50% in coordination of care (as documented) at patient's floor/unit and/or counseling patient: Coding Level of Care Code 72061 Subseq Hosp Care Lvl 3 Diagnoses Hypoxia R09.02 Multifocal pneumonia J18.9 Acute respiratory failure with hypoxia J96.01
--- NOTE | 2021-06-12 17:40 | Hospitalist Progress Note ---
Date of Service June 12, 2021 Assessment & Plan (1) Acute metabolic encephalopathy: Plan: Likely secondary to pneumonia and acute respiratory failure with hypoxia Showing good improvementuncertain exactly what her baseline is, but sounds like she is at baseline or close. (2) Pneumonia: Plan: Highly suspicious for a viral pneumoniaCovid testing has been repeatedly negative, no other clear etiology noted on testing, is on appropriate broad antibiotic coverage given the diffuse natureshe is double covered for gram- negative's, coverage for atypicals, and is MRSA negative. Continue dexametha sone. Appreciate pulmonary input. Continue supportive care/high flow nasal cannula. She looks surprisingly good, but certainly with her oxygen requirements her prognosis is guarded -Diuresis, maintain negative fluid balance (3) Sepsis: Plan: As abovesepsis almost certainly relates to pneumonia (4) Acute respiratory failure with hypoxia: Plan: As above, now requiring 90% FiO2, but looks surprisingly good otherwise (5) Hypokalemia: Plan: Replaced (6) Falls: Plan: Once she is doing better from an oxygenation standpoint, PT/OT eval and treat (7) Dementia: Plan: Moderate to severe and progressive Followed with neurology at [facility] No longer medications for this Supportive care (8) Hypertension: Plan: Blood pressures reasonable given the situation (9) Hyperlipidemia: Plan: Continue statin (10) Hypothyroidism: Plan: TSH 3.03 in 01/2021 Continue home levothyroxine (11) Osteopenia: Plan: Continue vitamin D and calcium (12) Prediabetes: Plan: Hemoglobin A1c 6.1% 2018 Sugars have overall been reasonable (13) Depression: Plan: Continue home sertraline, BuSpar (14) GERD without esophagitis: Plan: Continue home pantoprazole (15) Anemia: Plan: No signs of active bleeding, follow periodically Plan: DVT prophylaxis, Lovenox twice daily Disposition-continued stay on telemetry as hypoxia/respiratory failure is worsening DNR/DNI as discussed with patient and her by prior hospitalist If respiratory status continues to decline and fails high flow nasal cannula or trial of BiPAP, request that she be transition to comfort measures only, although she seems to be doing okay. With repeated negative Covid testing, discussed risk/benefit of visitation with , he is already been exposed to what ever pathogen she has, is feeling okay from an infection standpoint, is very anxious about her (seeing her will likely help his anxiety), and given her dementia, having a familiar face and voice in the hospital will likely be extremely helpful with delirium, p.o. intake, etc. Admission and Anticipated Discharge Date Admission Date: June 09, 2021 Subjective Feels surprisingly gooddenies any chest pain or shortness of breath. Wonders when she can go home. Later updated . HPI and review of systems fairly limited due to dementia Review of Systems Review of Systems: All systems reviewed & are unremarkable except as noted in HPI & below Physical Exam Physical Exam: In general she is awake and alert pleasant no distress. HEENT normocephalic atraumatic mucous membranes moist. Lungs are markedly diminished throughout without any clear notable rales rhonchi wheezes but also markedly diminished air entry. Cardio is distant 2. Neuro shows cranial nerves II through XII be grossly intact gross motor and sensory intact. No focal deficits. Results & Data Results & Data ([facility]) Vital Signs (Past 12 Hours) Vital Signs Temp Pulse Pulse Pulse Resp BP BP 06/12/21 16:00 79 06/12/21 15:17 88 18 06/12/21 14:17 06/12/21 11:29 97.9 F 79 18 107/64 06/12/21 10:52 81 18 06/12/21 10:41 113/70 06/12/21 10:22 06/12/21 08:00 97.9 F 91 H 18 131/67 06/12/21 07:23 20 06/12/21 07:07 90 Pulse Ox Pulse Ox Pulse Ox Pulse Ox 06/12/21 16:00 06/12/21 15:17 96 06/12/21 14:17 45 L 91 75 L 06/12/21 11:29 90 06/12/21 10:52 92 06/12/21 10:41 06/12/21 10:22 93 06/12/21 08:00 90 06/12/21 07:23 90 06/12/21 07:07 PG Care Time/CCT Total # of Minutes Spent Total Time Spent with Patient: Total time spent is greater than 50% in coordination of care (as documented) at patient's floor/unit and/or counseling patient: Coding Level of Care Code 64553 Subseq Hosp Care Lvl 3 Diagnoses Acute metabolic encephalopathy G93.41 Pneumonia J18.9 Sepsis A41.9 Acute respiratory failure with hypoxia J96.01 Hypokalemia E87.6 Falls W19.XXXA Dementia F03.90 Hypertension I10 Hyperlipidemia E78.5 Hypothyroidism E03.9 Osteopenia M85.80 Prediabetes R73.03 Depression F32.9 GERD without esophagitis K21.9 Anemia D64.9
[2021-06-13] MEDS: PIPERACILLIN/TAZOBACTAM 3.375 GM in DEXTROSE 5% 100 ML IV SCH ×3 (03:21→17:23)
[2021-06-13] MEDS: LEVOTHYROXINE SODIUM 88 MCG TABLET PO SCH (06:08)
[2021-06-13] MEDS: levoFLOXacin/D5W 750 MG/150 ML BAG IV SCH (07:56)
[2021-06-13] MEDS: SERTRALINE HCL 50 MG TABLET PO SCH (07:57)
[2021-06-13] MEDS: ENOXAPARIN INJ 40 MG/0.4 ML SYR SQ SCH (07:57)
[2021-06-13] MEDS: ZINC SULFATE 220 MG CAPSULE PO SCH (07:58)
[2021-06-13] MEDS: amLODIPine BESYLATE 5 MG TAB PO SCH (07:58)
[2021-06-13] MEDS: ASPIRIN 81 MG ECTAB PO SCH (07:58)
[2021-06-13] MEDS: CALCIUM 600MG + VIT D 400 IU TAB PO SCH (07:58)
[2021-06-13] MEDS: PANTOprazole 40 MG TAB PO SCH (07:58)
[2021-06-13] MEDS: CHOLECALCIFEROL 1,000 UNITS 25 MCG TAB PO SCH (07:58)
[2021-06-13] MEDS: DOCUSATE SODIUM 100 MG CAP PO SCH (07:58)
[2021-06-13] MEDS: busPIRone 5 MG TAB PO SCH (07:58)
[2021-06-13] MEDS: MULTIVITAMIN TAB PO SCH (07:58)
[2021-06-13] MEDS: SIMVASTATIN 20 MG TAB PO SCH (07:59)
[2021-06-13 08:22] LABS: Hematocrit (blood only) 31.9 % (37-47); Hemoglobin 10.6 g/dL (12.0-16.0); Mean Corpuscular Hemoglobin 29.4 pg (25-34); Mean Corpuscular Hgb Conc 33.2 g/dL (32-36); Mean Corpuscular Volume 88.6 fL (80-100); Mean Platelet Volume 9.8 fL (7.4-10.4); Platelet Count 400 K/uL (130-400); RDW Coefficient of Variation 14.3 % (11.5-14.5); RDW Standard Deviation 46.8 fL (36.4-46.3); White Blood Count 26.83 K/uL (4.8-10.8)
[2021-06-13 08:58] LABS: BUN Creatinine Ratio 34.8 (10-20); Basophils # (auto) 0.01 K/uL (0-0.2); Calcium 8.9 mg/dl (8.5-10.1); Creatinine Clr Calc Pharmacy 65.8 ml/min; Est GFR (African American) 94.5 ml/min; Est GFR (Non-African American) 81.5 ml/min; Immature Granulocytes % (auto) 0.4 %; Lymphocytes # (auto) 1.55 K/uL (1.2-3.4); Lymphocytes % (auto) 5.8 %; Monocytes # (auto) 1.27 K/uL (0.11-0.59); Monocytes % (auto) 4.7 %; Neutrophils % (auto) 89.1 %; Potassium 3.2 mmol/L (3.5-5.1)
[2021-06-13] MEDS ORDERED: dexAMETHasone 10 MG in SYRINGE 0 ML IV SCH (09:00)
[2021-06-13] MEDS ORDERED: FUROSEMIDE 40 MG/4 ML VIAL IV ONE (10:44)
[2021-06-13] MEDS ORDERED: ALBUT/IPRATROP 3MG/0.5MG NEB 3 ML VIAL NEB STA (11:04)
[2021-06-13] MEDS ORDERED: OPTIRAY 320 125ml IV ONE (11:56)
[2021-06-13] MEDS: POTASSIUM CHLORIDE / WTR 10 MEQ/100 ML PLCT IV SCH ×4 (11:58→15:20)
--- NOTE | 2021-06-13 12:10 | CT Scan Report ---
CT angio chest PE protocol CLINICAL HISTORY: worsening hypoxia ?PE in addition to infiltrate? Covid pneumonia. TECHNIQUE: Multidetector row helical CT of the chest was performed. Coronal and sagittal reformations were obtained. Coronal and sagittal MIPS were obtained from the axial data set and were submitted fo r review. Automated dose lowering techniques and/or adjustment according to patient size were utiliz ed for this exam. Comparison: Comparison is made to CT chest 11/23/2021 FINDINGS: Lungs and pleura: Again seen are multifocal groundglass and consolidative opacities. Stable small rig ht pleural effusion Heart and pericardium: There is cardiomegaly without evidence of pericardial effusion. Vessels: Moderate atherosclerotic changes in the aorta and coronary arteries. Mediastinum and herman: Unremarkable. Chest wall and lower neck: Unremarkable. Abdomen: Partially visualized, there is prominence of the intra and extrahepatic bile duct which may be physiologic. Bones: Degenerative changes in the thoracic spine. IMPRESSION: 1. No evidence of pulmonary embolism. 2. Multifocal groundglass and consolidative opacities are similar in appearance to prior exam. Follo w-up to resolution is recommended. 3. Small right pleural effusion. ACT 112: Negative or not required by law. Electronically signed by: Hayden Hdz M.D. 06/13/2021 12:09 PM
--- NOTE | 2021-06-13 13:43 | Pulmonology Progress Note ---
Date of Service June 13, 2021 Assessment & Plan (1) Hypoxia: (2) Multifocal pneumonia: (3) Acute respiratory failure with hypoxia: Plan: CT chest June 11, 2021 personally reviewed: Diffuse groundglass and patchy opacities appreciated bilaterally more on the right upper and lower lobe Minimal right-sided pleural effusion Insignificant mediastinal lymphadenopathy --Acute hypoxic respiratory failure Secondary to multilobar pneumonia Etiology of the pneumonia is not clear right now Viral pneumonia higher in differential COVID-19 PCR negative x2, COVID-19 RNA NAAT negative x1 06/12/2021 Bio fire negative Influenza A/B negative RSV negative Nasal MRSA negative [employer] is a possibility as well. Dexamethasone has been started which might help with it. Patient is not immunosuppressed. Incentive spirometry will be beneficial for the patient but unfortunately with underlying dementia I doubt that she will be able to use it Bronchoscopy would not be recommended and the patient was on such high flow as she will get intubated. Plan: CTA chest from today personally reviewed: Still shows diffuse opacities bilatera lly upper and lower lobes Small right-sided pleural effusion COVID-19 PCR has been negative x3. I still think this is most likely a viral pneumonia which unfortunately we do not have a diagnosis for. Continue with symptomatic management with oxygen supplementation. Diuresis to keep the patient negative balance BiPAP would benefit the patient if she is able to tolerate it. Unfortunately there is not much to offer from pulmonary perspective. I will sign off. Please call directly with any questions. Please note the above document was generated using voice recognition software. It may contain grammatical, syntax or spelling errors.Any formal questions or concerns about the content, text or information contained within the body of this dictation should be directly addressed to the provider for clarification. Admission and Anticipated Discharge Date Admission Date: June 09, 2021 Subjective Patient seen and examined at bedside. No acute distress. She was on nonrebreather 15 L saturating 85% not in any respiratory distress. Prior to the nonrebreather here she was on high flow 40 L, 100% saturating 91- 92% Patient was being wheeled off for CTA. Review of Systems Review of Systems: All systems reviewed & are unremarkable except as noted in Subjective and Unobtainable due to cognitive status Physical Exam Physical Exam: Constitutional: No acute distress HEENT: EOMI, PERRLA Respiratory system: Decreased air entry bilaterally, no wheeze, no rhonchi, positive crackles bilaterally more on the right side CVS: S1-S2 positive, no murmurs or gallops Abdomen: Soft, nontender, nondistended, positive bowel sounds x4 Extremities: +2 pulses bilaterally radialis/ dorsalis pedis, no cyanosis, +1 pitting edema bilateral lower extremity Neuro: Awake alert oriented to self Psych: Normal mood and affect G/U: No Jones Skin: no rashes, warm and dry Lymphatic: no cervical or axillary lymphadenopathy Results & Data Results & Data ([facility]) Vital Signs (Past 12 Hours) Vital Signs Temp Pulse Pulse Resp BP Pulse Ox 06/13/21 13:27 87 06/13/21 11:45 89 26 H 91 06/13/21 11:30 92 H 22 86 L 06/13/21 08:18 36.9 C 18 146/57 H 06/13/21 07:56 89 26 H 89 L 06/13/21 04:17 37.0 C 93 H 20 122/76 89 L 06/13/21 03:39 80 24 91 Laboratory Results 06/13/21 08:12 06/13/21 08:12 PG Care Time/CCT Total # of Minutes Spent Total Time Spent with Patient: Total time spent is greater than 50% in coordination of care (as documented) at patient's floor/unit and/or counseling patient: Coding Level of Care Code 54150 Subseq Hosp Care Lvl 2 Diagnoses Hypoxia R09.02 Multifocal pneumonia J18.9 Acute respiratory failure with hypoxia J96.01
[2021-06-13] MEDS ORDERED: MoRPHine SULFATE 2 MG/ML CARP IV PRN ×2 (17:44→20:38)
[2021-06-13] MEDS ORDERED: LORazepam 0.5 MG/1 ML VIAL IV PRN (17:44)
--- NOTE | 2021-06-13 17:54 | Hospitalist Progress Note ---
Date of Service June 13, 2021 Assessment & Plan (1) Acute metabolic encephalopathy: Plan: Likely secondary to pneumonia and acute respiratory failure with hypoxia On the superimposed on what sounds to be a very severe baseline of dementia (2) Pneumonia: Plan: Highly suspicious for a viral pneumoniaCovid testing has been repeatedly negative, no other clear etiology noted on testingdespite aggressive care, broad antibiotics, steroids, diuresisshe continues to have worsening oxygen requirements, and therefore a declining clinical status. and daughter would prefer comfort care, which seems extremely reasonableparticularly given her prehospitalization very poor quality of life due to what sounds to be very severe dementia. would not want her essentially languishing in a senior care, and is aware that she would likely pass from this illness regardless, and even if she were to survive, would likely be too weak to be able to function at home. He also notes that she would not want to have aggressive measures, it sounds as though they had had plenty of end-of-life discussions by his tone and confidence of what he knows she would or would not want. To that end, will transition to comfort careawaiting daughter Erica to arrive from [place], she will likely be here by about 730 or 8 PM tonight. At that point, oxygen only for comfort, morphine 1 mg every 30 minutes as needed pain or dyspnea, Ativan 1 mg every hour as needed dyspnea or restlessness/agitation (3) Sepsis: Plan: sepsis almost certainly relates to pneumonia (4) Acute respiratory failure with hypoxia: Plan: see above, worsening (5) Hypokalemia: Plan: Replaced (6) Falls: (7) Dementia: Plan: Moderate to severe and progressive Followed with neurology at [facility] No longer medications for this creates a baseline of very poor quality of life per (8) Hypertension: (9) Hyperlipidemia: (10) Hypothyroidism: (11) Osteopenia: (12) Prediabetes: Plan: Hemoglobin A1c 6.1% 2017 (13) Depression: (14) GERD without esophagitis: (15) Anemia: Plan: changing to comfort care Admission and Anticipated Discharge Date Admission Date: June 09, 2021 Subjective Seen multiple times today. Worsening hypoxiaalthough still no complaints of dyspnea. Really no complaints at all, even a bit more confused today. Later presentsees her worsening, notes her with her baseline dementia that even if she comes through this she would have no quality of life, and has discussed the situation with his daughterthey would prefer comfort care. We discussed this in depthfirst with her (Ronald) and myself, then with Ronald and daughter Erica over phone and FaceTimeall are in agreement with comfort care. Erica is coming in from [place], and obviously would like to see her mother before she passes. To that end, Ronald would prefer that she stay on BiPAP until Erica gets here, but really would like to get it off of her for comfort, and so that she can talk a little easier. Review of Systems Review of Systems: All systems reviewed & are unremarkable except as noted in HPI & below Physical Exam Physical Exam: Awake and alert very confused, surprisingly still in no distress. HEENT normocephalic atraumatic mucous membranes moist. Lungs coarse but but better air entry than yesterday oddly, no focal findings no rales rhonchi or wheezes good effort. Unfortunately her O2 sats are down in the mid 80s on 100% high flow nasal cannula when I see her. Later she has, up to reasonable saturations, but only with assistance of BiPAP. Repeat CT scan reviewedfortunately no PE, but ongoing very extensive multifocal pneumonia. Results & Data Results & Data ([facility]) Vital Signs (Past 12 Hours) Vital Signs Temp Pulse Pulse Resp BP Pulse Ox 06/13/21 15:45 93 H 26 H 97 06/13/21 15:09 94 H 06/13/21 13:27 87 06/13/21 11:45 89 26 H 91 06/13/21 11:30 92 H 22 86 L 06/13/21 08:18 98.4 F 18 146/57 H 06/13/21 07:56 89 26 H 89 L PG Care Time/CCT Total # of Minutes Spent Total Time Spent with Patient: Total time spent is greater than 50% in coordination of care (as documented) at patient's floor/unit and/or counseling patient: Coding Level of Care Code 19137 Subseq Hosp Care Lvl 3 Diagnoses Acute metabolic encephalopathy G93.41 Pneumonia J18.9 Sepsis A41.9 Acute respiratory failure with hypoxia J96.01 Hypokalemia E87.6 Falls W19.XXXA Dementia F03.90 Hypertension I10 Hyperlipidemia E78.5 Hypothyroidism E03.9 Osteopenia M85.80 Prediabetes R73.03 Depression F32.9 GERD without esophagitis K21.9 Anemia D64.9
[2021-06-13] MEDS ORDERED: LORazepam 1 MG/2 ML VIAL IV PRN (20:38)
[2021-06-13] MEDS: MoRPHine SULFATE 2 MG/ML CARP IV PRN ×2 (21:50→22:20)
[2021-06-13] MEDS ORDERED: MoRPHine SULFATE 4 MG/ML 1 ML CARP\\VIAL ONE (21:51)
[2021-06-13] MEDS ORDERED: STAT IV Infusion **Titration per Protocol STA (22:12)
[2021-06-13] MEDS ORDERED: MoRPHine SULF/NSS 250 MG/250 ML BTL IV SCH (22:15)
--- NOTE | 2021-06-13 23:20 | Death Pronouncement Note ---
Date of Service June 13, 2021 Pronouncement Note Admission Date Admission Date: June 09, 2021 Date and Time of Date of : 06/13/21 Time of : 22:45 Contributing Factors (1) Acute metabolic encephalopathy: (2) Pneumonia: (3) Sepsis: (4) Acute respiratory failure with hypoxia: (5) Hypokalemia: (6) Falls: (7) Dementia: (8) Hypertension: (9) Hyperlipidemia: (10) Hypothyroidism: (11) Osteopenia: (12) Prediabetes: (13) Depression: (14) GERD without esophagitis: (15) Anemia: Additional Data Confirmation of : no pulse, no respirations and no heart sounds Family: at bedside Attending physician: Mike Gomes, DO Was code activated?: No Autopsy requested?: No Organ bank notified?: No Resident Activity Tracking Resident Involvement: Resident Care Provided Care Provided: Adult Hospital Medicine
--- NOTE | 2021-06-14 19:18 | Discharge Summary ---
Date of Service June 14, 2021 Admission HPI Per Admitting Provider This patient is an 85-year-old female with a history of HTN, hypothyroidism, hyperlipidemia, prediabetes, GERD, depression/anxiety, osteopenia, and dementia who presents to the ER with her who gives the history due to the patient's dementia. She has been having increased weakness and he is having great difficulty taking care of her. He found her next to the bed last evening and had to call the EMS to help him get her up. He reports that she has been having increased confusion and lethargy especially since this morning and he was unable to get her out of bed. He thinks that she needs to be placed in a retirement. The reports that she has not had any fever but he did note that she had a drenching sweat overnight last night. The patient denies pain anywhere. She denies any shortness of breath or chest pain, no cough and he has not noticed any cough either. She has not had any nausea or vomiting, no diarrhea that he is aware of. She denies any urinary symptoms but he did state that he has noticed she has been urinating frequently. In the ER, she was found to have bilateral lobar pneumonia on chest x-ray which was suspicious for possible aspiration. She was hypoxic and requiring 4 L nasal cannula, afebrile, and with a leukocytosis of 17,000. Her Covid-19, influenza a and B, and RSV test were all negative. A head CT noncontrast was negative for acute disease. A urinalysis had not yet been collected. In the ER, she was given IV Zosyn and added on azithromycin. She was also placed on oxygen. The patient's reports that she is significantly improved already since this morning and is pretty much back to her baseline mental status. She will be admitted for sepsis, pneumonia, acute respiratory failure with hypoxia, acute metabolic encephalopathy. Principal Diagnosis viral pneumonia Discharge Data Allergies Allergy/AdvReac Type Severity Reaction Status Date / Time bacitracin Allergy Unknown RASH Verified 06/09/21 14:19 donepezil Allergy Unknown UNKNOWN Verified 06/09/21 14:19 neomycin Allergy Unknown RASH Verified 06/09/21 14:19 polymyxin B Allergy Unknown RASH Verified 06/09/21 14:19 rivastigmine [From Exelon] Allergy Unknown Verified 06/09/21 14:19 hydroxyzine AdvReac Unknown THROW UP Verified 06/09/21 14:19 Consultations 06/09/21 16:08 ED Decision to Admit Stat 06/11/21 08:15 Consult Pulmonology Routine Ordered Studies 06/09/21 14:04 CT head/brain wo con Stat 06/11/21 08:22 CT chest diagnostic wo con Routine 06/13/21 10:44 CT angio chest PE protocol Urgent Hospital Course (1) Acute metabolic encephalopathy: Likely secondary to pneumonia and acute respiratory failure with hypoxia On the superimposed on what sounds to be a very severe baseline of dementia (2) Pneumonia: Highly suspicious for a viral pneumoniaCovid testing has been repeatedly negative, no other clear etiology noted on testingdespite aggressive care, broad antibiotics, steroids, diuresisshe continues to have worsening oxygen requirements, and therefore a declining clinical status. and daughter would prefer comfort care, which seems extremely reasonableparticularly given her prehospitalization very poor quality of life due to what sounds to be very severe dementia. would not want her essentially languishing in a retirement, and is aware that she would likely pass from this illness regardless, and even if she were to survive, would likely be too weak to be able to function at home. He also notes that she would not want to have aggressive measures, it sounds as though they had had plenty of end-of-life discussions by his tone and confidence of what he knows she would or would not want. To that end, will transition to comfort careawaiting daughter Erica to arrive from [place], she will likely be here by about 730 or 8 PM tonight. At that point, oxygen only for comfort, morphine 1 mg every 30 minutes as needed pain or dyspnea, Ativan 1 mg every hour as needed dyspnea or restlessness/agitation ---passed later same night, 06/13/21 (3) Sepsis: sepsis almost certainly relates to pneumonia (4) Acute respiratory failure with hypoxia: see above, worsening (5) Hypokalemia: Replaced (6) Falls: (7) Dementia: Moderate to severe and progressive Followed with neurology at [facility] No longer medications for this creates a baseline of very poor quality of life per (8) Hypertension: (9) Hyperlipidemia: (10) Hypothyroidism: (11) Osteopenia: (12) Prediabetes: Hemoglobin A1c 6.1% 2017 (13) Depression: (14) GERD without esophagitis: (15) Anemia: changing to comfort care Total Time Total Time Spent Total Time Spent (In Minutes): <30 Discharge Plan Discharge Items Patient Disposition: Other Date/Time: 06/13/21 22:45 Coding Level of Care Code None Diagnoses Acute metabolic encephalopathy G93.41 Pneumonia J18.9 Sepsis A41.9 Acute respiratory failure with hypoxia J96.01 Hypokalemia E87.6 Falls W19.XXXA Dementia F03.90 Hypertension I10 Hyperlipidemia E78.5 Hypothyroidism E03.9 Osteopenia M85.80 Prediabetes R73.03 Depression F32.9 GERD without esophagitis K21.9 Anemia D64.9
== END 2021-06-13 23:45 | disposition expired | DRG 871 ==
LOC: ED 13:25 → EDINP 17:54 → SUATTDRO 17:54 → 2N 18:48